=== PATIENT | male | born 1950 | race Hispanic/Latino ===

== ENCOUNTER 2019-07-26 11:10 | Emergency (ER) | payer OTHER ==
[2019-07-26] MEDS ORDERED: Ibuprofen 800 MG TAB ONE (11:56)
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
== END 2019-07-26 13:50 | disposition home or self-care (01) ==
LOC: ERS 11:10
DX: S70.02XA Contusion of left hip, initial encounter (principal); M54.5 Low back pain; M19.90 Unspecified osteoarthritis, unspecified site; V89.2XXA Person injured in unspecified motor-vehicle accident, traffic, initial encounter
CPT/HCPCS: 71046; 72100; 72170; 93005

== ENCOUNTER 2019-08-06 16:49 | Inpatient (IN) | payer MEDICARE, MEDICAID, OTHER ==
[2019-08-06 17:47] LABS: #Basophils 0.1 thou/uL (0.0-0.2); #Lymphocytes 1.3 thou/uL (1.20-3.40); #Monocytes 0.4 thou/uL (0.11-0.59); #Neutrophils 6.3 thou/uL (1.40-6.50); %Basophils 0.6 % (0.0-1.0); %Eosinophils 0.2 % (0.0-10.0); %Monocytes 4.9 % (0.0-10.0); %Neutrophils 78.3 % (42.0-75.0); Mean Corpuscular HGB CONC 33.3 g/dL (32.0-36.0); Mean Corpuscular Hemoglobin 31.8 pg (27.0-31.0); Mean Corpuscular Volume 95.7 fL (78.0-98.0); Platelet Count 251 thou/uL (130-400); RBC Distribution Width 11.1 % (11.5-14.5); Red Blood Cell (RBC) Count 4.41 mill/uL (4.70-6.10)
[2019-08-06 18:06] LABS: ALT (SGPT) 28 U/L (8-55); AST (SGOT) 54 U/L (5-34); Albumin 3.6 g/dL (3.4-4.8); Alkaline Phosphatase 65 U/L (40-110); Anion Gap 16 mmol/L (10-20); BUN (Urea Nitrogen) 49 mg/dL (8.4-25.7); Bilirubin, Total 0.5 mg/dL (0.2-1.2); CK (CPK) 37 U/L (30-200); Calc. Creatinine Clearance 0 mL/min (70-130); Calcium 8.8 mg/dL (7.8-10.44); Carbon Dioxide 20 mmol/L (23-31); Chloride 98 mmol/L (98-107); Estimated GFR-MDRD 37; Globulin 4.2 g/dL (2.4-3.5); Glucose 346 mg/dL (80-115); Lipase 99 U/L (8-78); Potassium 5.7 mmol/L (3.5-5.1); Protein, Total 7.8 g/dL (5.8-8.1); Sodium 128 mmol/L (136-145)
--- NOTE | 2019-08-06 19:07 | RAD ---
PORTABLE CHEST: 08/06/19 HISTORY: Cough. COMPARISON: A 07/26/19 exam. The heart size is within normal limits for portable technique. There are atherosclerotic changes of t he aorta with some chronic appearing change. No focal infiltrative process is present. IMPRESSION: No active intrathoracic disease. Pleural based densities along the right and left hemithorax are dionicio lar to the previous exam. POS: [facility]
[2019-08-06] MEDS ORDERED: Acetaminophen 325 MG TAB ONE (19:09)
[2019-08-06] MEDS ORDERED: cefTRIAXone\\ROCEPHIN 2 GM VIAL ONE (19:09)
[2019-08-06] MEDS ORDERED: methylPREDNISolone Sod Succ/PF 125 MG/2 ML VIAL ONE (19:09)
[2019-08-06] MEDS ORDERED: Azithromycin 500 MG VIAL ONE (20:11)
[2019-08-06 21:06] LABS: Troponin I Less than 0.010 ng/mL (< 0.028)
[2019-08-06] MEDS ORDERED: Ondansetron PF 4 MG/2 ML Vial IVP PRN (21:43)
[2019-08-06] MEDS ORDERED: Bisacodyl 10 MG SUPP PR PRN (21:43)
[2019-08-06] MEDS ORDERED: Senokot S 8.6-50 MG TAB PO PRN (21:43)
[2019-08-06] MEDS ORDERED: Dextrose 5% in Water 1,000 ML IV PRN (21:43)
[2019-08-06] MEDS ORDERED: Dextrose 50% Abboject 50 ML SYRINGE SLOW IVP PRN (21:43)
[2019-08-06] MEDS ORDERED: Insulin Glargine 20 UNITS in Pre-Filled Syringe 1 EACH SC SCH (22:45)
[2019-08-06] MEDS: Sodium Chloride 0.9% 1,000 ML IV SCH (22:45)
[2019-08-06] MEDS: HumaLOG 300 UNITS/3 ML VIAL SC PRN (22:55)
--- NOTE | 2019-08-06 23:59 | HP ---
REASON FOR ADMISSION: Possible COVID. HISTORY OF PRESENTING ILLNESS: The patient gives history of having generalized body aches, dry cough, and loss of appetite for the last 3 to 4 days now, not been eating or drinking well for the last 2 to 3 days now. No complaints of chest pain, palpitation, PND, or orthopnea. No complaints of expectoration, but has mostly dry cough. No exposure for COVID-19 as far as he knows. PAST MEDICAL AND SURGICAL HISTORY: Diabetes mellitus type 2, hypertension. No prior surgical history. CURRENT MEDICATIONS: The patient does not recall all his medications. We will try to obtain the same from his pharmacy tomorrow. ALLERGIES: NO KNOWN DRUG ALLERGIES. PERSONAL HISTORY: Does not abuse alcohol or drugs. No history of smoking. FAMILY HISTORY: Both parents are . The patient ambulates by himself. CODE STATUS: Full. REVIEW OF SYSTEMS: CONSTITUTIONAL: Negative for weight loss or gain, ability to conduct usual activities. SKIN: Negative for rash, itching. EYES: Negative for double vision, pain. ENT/MOUTH: Negative for nose bleeding, neck stiffness, pain, tenderness. CARDIOVASCULAR: Negative for palpitations, dyspnea on exertion, orthopnea. RESPIRATORY: Negative for shortness of breath, wheezing, cough, hemoptysis, fever or night sweats. GASTROINTESTINAL: Negative for poor appetite, abdominal pain, heartburn, nausea , vomiting, constipation, or diarrhea. GENITOURINARY: Negative for urgency, frequency, dysuria, nocturia. MUSCULOSKELETAL: Negative for pain, swelling. NEUROLOGIC/PSYCHIATRIC: Negative for anxiety, depression. ALLERGY/IMMUNOLOGIC: Negative for skin rash, bleeding tendency. PHYSICAL EXAMINATION: GENERAL: The patient is a 69-year-old male who is currently not in any acute distress. VITAL SIGNS: Blood pressure 118/74, pulse 94 per minute, respiratory rate 20 per minute, temperature 101.2 degrees Fahrenheit, saturating 94% on room air. NECK: Supple. No elevated JVD. HEENT: Eyes; extraocular muscles intact. Pupils are reacting to light. Oral cavity, mucous membranes are dry. No exudates or congestion. CARDIOVASCULAR: S1 and S2 heard. Regular rhythm. RESPIRATORY: Air entry, 1+ bilateral. No rales or rhonchi. ABDOMEN: Soft. Bowel sounds heard. No tenderness, rigidity, or guarding. EXTREMITIES: No peripheral edema or calf tenderness. VASCULAR SYSTEM: Peripheral pulses 2+, bilateral. No ischemic ulcerations or gangrene. CENTRAL NERVOUS SYSTEM: No gross focal motor deficits noted. The patient is alert, awake, and oriented well. PSYCHIATRIC: The patient's mood is euthymic. No hallucinations or delusions. DIAGNOSTIC STUDIES: Chest x-ray done shows no active intrathoracic disease. There are bilateral pleural-based densities seen, which are similar when compared to prior x-ray on 07/26/2019. LABORATORY DATA: Sodium 128, potassium 5.7, serum bicarb 20, BUN 49, creatinine 1.8, serum glucose 346. AST 54. Troponin x2 negative. Albumin is 3.6. Lipase is 99. White count of 8, H and H 14 and 42, platelet count is 251, MCV is 95 with 78% neutrophils, 16% lymphocytes. CLINICAL IMPRESSION AND PLAN: The patient will be admitted to medical floor for likely coronavirus pneumonia. Currently, his plain x-ray does not show any infiltrate. He has had a fever of 101.2 degrees. The patient's symptoms are consistent with likely coronavirus disease. The coronavirus disease-19 PCR has been obtained in the emergency room. We will also obtain blood and urine cultures. The patient does mention that he has had some increased urination with frequency as well from last 2 to 3 days now. We will empirically cover him with Levaquin. He will be on airborne and droplet precautions. He will be given a dose of Lantus 20 units subcu one dose now for serum sugars of more than 300. He will be on normal saline at 100 mL per hour for acute kidney injury with likely underlying chronic kidney disease, which we are not sure of at present. Job ID: [id number] [facility]
[2019-08-07 00:09] LABS: Troponin I 0.017 ng/mL (< 0.028)
[2019-08-07] MEDS: Ciprofloxacin Lactate/D5W 200 MG in Premix Bag 1 BAG IVPB SCH ×2 (00:38→12:05)
[2019-08-07] MEDS: HumaLOG 300 UNITS/3 ML VIAL SC PRN (06:38)
[2019-08-07 07:06] LABS: #Lymphocytes 0.8 thou/uL (1.20-3.40); #Monocytes 0.1 thou/uL (0.11-0.59); #Neutrophils 5.5 thou/uL (1.40-6.50); %Basophils 0.1 % (0.0-1.0); %Eosinophils 0.1 % (0.0-10.0); %Lymphocytes 13.1 % (21.0-51.0); %Monocytes 1.1 % (0.0-10.0); %Neutrophils 85.5 % (42.0-75.0); Mean Corpuscular HGB CONC 34.1 g/dL (32.0-36.0); Mean Corpuscular Volume 96.6 fL (78.0-98.0); Mean Platelet Volume 8.1 fL (7.4-10.4); Platelet Count 237 thou/uL (130-400); RBC Distribution Width 11.1 % (11.5-14.5); Red Blood Cell (RBC) Count 3.93 mill/uL (4.70-6.10); White Blood Cell (WBC) Count 6.4 thou/uL (4.8-10.8)
[2019-08-07 07:30] LABS: Anion Gap 12 mmol/L (10-20); BUN (Urea Nitrogen) 52 mg/dL (8.4-25.7); Calc. Creatinine Clearance 37 mL/min (70-130); Calcium 7.8 mg/dL (7.8-10.44); Carbon Dioxide 21 mmol/L (23-31); Chloride 105 mmol/L (98-107); Estimated GFR-MDRD 44; Glucose 340 mg/dL (80-115); Potassium 5.2 mmol/L (3.5-5.1); Sodium 133 mmol/L (136-145)
[2019-08-07] MEDS: Sodium Chloride 0.9% 1,000 ML IV SCH ×2 (08:43→18:28)
[2019-08-07] MEDS: Enoxaparin Sodium 30 MG/0.3 ML SYRINGE SC SCH (08:43)
[2019-08-07] MEDS ORDERED: Prevnar 13-Val Conj/PF 0.5 ML SYRINGE IM ONE (09:00)
[2019-08-07 14:17] LABS: SARS-CoV-2 MS2 Positive; SARS-CoV-2 N Gene Positive; SARS-CoV-2 S Gene Positive; SARS-CoV-2 orf1ab Positive
--- NOTE | 2019-08-07 17:57 | PDOC.HOSPP ---
- Subjective Encounter Date: 08/07/19 Encounter Time: 17:56 Subjective: Mr. Carlos was seen today in follow-up of COVID infection. He says today that he didn't have any symptoms, and doesn't now. He does not know why he is in the hospital. All he came here for was a refill on his prescriptions. - Objective Vital Signs & Weight: Vital Signs (12 hours) Temp Pulse Resp BP BP Pulse Ox 08/07/19 12:00 97.6 F 80 18 159/70 H 98 08/07/19 08:30 97.6 F 83 18 138/73 94 L 08/07/19 08:00 94 L Weight Admit Weight 128 lb 1.417 oz Weight 128 lb 1.417 oz I&O: 08/06/19 08/07/19 08/08/19 06:59 06:59 06:59 Intake Total 900 Output Total 0 Balance 900 Result Diagrams: 08/07/19 06:25 08/07/19 06:25 Additional Labs: Accuchecks 08/07/19 08/07/19 08/07/19 16:54 13:03 06:42 POC Glucose 386 H 320 H 314 H 08/06/19 22:57 POC Glucose 330 H Hospitalist ROS - Medication Medications: Active Medications Generic Name Dose Route Start Last Admin Trade Name Freq PRN Reason Stop Dose Admin Enoxaparin Sodium 30 mg 08/07/19 09:00 08/07/19 08:43 Lovenox SC 30 mg 0900 JALYN Administration Sodium Chloride 1,000 mls @ 100 mls/hr 08/06/19 22:45 08/07/19 08:43 Normal Saline 0.9% IV 1,000 mls .Q10H JALYN Administration Ciprofloxacin/Dextrose 200 mg/ 100 mls @ 100 mls/hr 08/06/19 23:59 08/07/19 12:05 Device IVPB 100 mls 1200,2359 JALYN Administration Insulin Human Lispro 0 units 08/06/19 21:43 08/07/19 06:38 Humalog SC 11 unit .AGGRESSIVE SLIDING PRN Administration Aggressive Correctional Scale Insulin Human Lispro 0 units 08/06/19 21:43 08/06/19 22:55 Humalog SC 4 unit .BEDTIME SLIDING SC PRN Administration Bedtime Correctional Scale - Exam Eye: PERRL Heart: RRR, no murmur, no gallops, no rubs, normal peripheral pulses Respiratory: rales (+ rales bilaterally, no rhonchi) Gastrointestinal: soft, non-tender, non-distended, normal bowel sounds, no palpable masses Extremities: no cyanosis, no edema Hosp A/P (1) COVID-19 virus infection Code(s): U07.1 - COVID-19 Status: Acute (2) Diabetes mellitus type 2 in nonobese Code(s): E11.9 - TYPE 2 DIABETES MELLITUS WITHOUT COMPLICATIONS Status: Acute (3) Hypertension Code(s): I10 - ESSENTIAL (PRIMARY) HYPERTENSION Status: Chronic - Plan * COVID infection- he now has mild symptoms- will monitor * Will check inflammatory markers * HTN- will re-start his cynthia medications * DM- re-start Metformin, and continue SSI * Mild hyperkalemia- will repeat in the AM after hydration * Continue DVT and GI Prophylaxis
[2019-08-07] MEDS ORDERED: metFORMIN 850 MG TAB PO SCH (18:45)
[2019-08-07] MEDS: Guaifenesin DM 100-10/5 ML UDCUP PO PRN (20:10)
[2019-08-07] MEDS: Calcium Carbonate 500 MG ChewTAB PO PRN (20:10)
[2019-08-08] MEDS: HumaLOG 300 UNITS/3 ML VIAL SC PRN ×3 (01:17→12:12)
[2019-08-08] MEDS: Sodium Chloride 0.9% 1,000 ML IV SCH ×3 (06:12→16:51)
[2019-08-08] MEDS: Guaifenesin DM 100-10/5 ML UDCUP PO PRN ×3 (06:29→19:54)
[2019-08-08 06:43] LABS: Band 34 % (5-11); Hemoglobin 14.1 g/dL (14.0-18.0); Lymphocytes 8 % (21-51); MDiff Complete? YES; Mean Corpuscular HGB CONC 34.1 g/dL (32.0-36.0); Mean Corpuscular Hemoglobin 32.8 pg (27.0-31.0); Mean Corpuscular Volume 96.1 fL (78.0-98.0); Mean Platelet Volume 8.1 fL (7.4-10.4); Monocytes 2 % (0-10); Neutrophil 56 % (42-75); Platelet Count 304 thou/uL (130-400); Platelet Morphology Comment Appears Adequate; RBC Distribution Width 11.1 % (11.5-14.5); Red Blood Cell (RBC) Count 4.29 mill/uL (4.70-6.10); White Blood Cell (WBC) Count 18.9 thou/uL (4.8-10.8)
[2019-08-08 06:58] LABS: Anion Gap 15 mmol/L (10-20); BUN (Urea Nitrogen) 42 mg/dL (8.4-25.7); CRP (Inflammatory) 7.21 mg/dL (= or < 0.5); Calc. Creatinine Clearance 43 mL/min (70-130); Calcium 8.1 mg/dL (7.8-10.44); Carbon Dioxide 17 mmol/L (23-31); Chloride 111 mmol/L (98-107); Estimated GFR-MDRD 53; Glucose 333 mg/dL (80-115); Potassium 4.6 mmol/L (3.5-5.1); Sodium 138 mmol/L (136-145)
[2019-08-08] MEDS ORDERED: Loperamide HCl 2 MG CAP PO PRN (08:04)
[2019-08-08] MEDS: Enoxaparin Sodium 30 MG/0.3 ML SYRINGE SC SCH (08:31)
[2019-08-08] MEDS: Lisinopril 10 MG TAB PO SCH (08:32)
[2019-08-08] MEDS: metFORMIN 850 MG TAB PO SCH ×2 (08:32→16:53)
[2019-08-08] MEDS: Thiamine 100 MG TAB PO SCH (08:32)
[2019-08-08] MEDS: Insulin Glargine 15 UNITS in Pre-Filled Syringe 1 EACH SC SCH (09:46)
[2019-08-08] MEDS: Calcium Carbonate 500 MG ChewTAB PO PRN (12:10)
--- NOTE | 2019-08-08 16:01 | PDOC.HOSPP ---
- Subjective Encounter Date: 08/08/19 Encounter Time: 15:59 Subjective: Mr. Mercado was seen today in follow-up. He appears a little worse today. He is a bit more diaphoretic, and is coughing more. - Objective Vital Signs & Weight: Vital Signs (12 hours) Temp Pulse Resp BP Pulse Ox 08/08/19 09:55 97.9 F 86 14 117/72 95 08/08/19 05:50 97.7 F 80 18 159/77 H 93 L Weight Admit Weight 128 lb 1.417 oz Weight 128 lb 1.417 oz I&O: 08/07/19 08/08/19 08/09/19 06:59 06:59 06:59 Intake Total 2500 Output Total 240 Balance 2260 Result Diagrams: 08/08/19 06:05 08/08/19 06:05 Additional Labs: Accuchecks 08/08/19 08/08/19 08/08/19 12:22 06:07 00:57 POC Glucose 206 H 321 H 480 H 08/07/19 08/07/19 20:28 16:54 POC Glucose 504 H 386 H Hospitalist ROS - Medication Medications: Active Medications Generic Name Dose Route Start Last Admin Trade Name Freq PRN Reason Stop Dose Admin Calcium Carbonate 1,000 mg 08/06/19 21:43 08/08/19 12:10 Tums PO 1,000 mg Q4H PRN Administration Heartburn or Indigestion Enoxaparin Sodium 30 mg 08/07/19 09:00 08/08/19 08:31 Lovenox SC 30 mg 0900 JALYN Administration Guaifenesin/Dextromethorphan 15 ml 08/06/19 21:43 08/08/19 12:11 Robitussin Dm PO 15 ml Q4H PRN Administration Cough Sodium Chloride 1,000 mls @ 100 mls/hr 08/06/19 22:45 08/08/19 14:20 Normal Saline 0.9% IV Not Given .Q10H JALYN Insulin Glargine 15 units/ 0.15 mls @ 0 mls/hr 08/08/19 09:00 08/08/19 09:46 Miscellaneous Medication SC 0.15 mls QAM JALYN Administration Insulin Human Lispro 0 units 08/06/19 21:43 08/08/19 12:12 Humalog SC 6 unit .AGGRESSIVE SLIDING PRN Administration Aggressive Correctional Scale Insulin Human Lispro 0 units 08/06/19 21:43 08/08/19 01:17 Humalog SC 5 unit .BEDTIME SLIDING SC PRN Administration Bedtime Correctional Scale Lisinopril 10 mg 08/08/19 09:00 08/08/19 08:32 Zestril PO 10 mg DAILY JALYN Administration Loperamide HCl 2 mg 08/08/19 08:04 08/08/19 12:10 Imodium PO 2 mg PRN PRN Administration Diarrhea/Loose Stools Metformin HCl 850 mg 08/08/19 08:00 08/08/19 08:32 Glucophage PO 850 mg BID-WM JALYN Administration Thiamine HCl 50 mg 08/08/19 09:00 08/08/19 08:32 Thiamine PO 50 mg DAILY JALYN Administration - Exam Eye: PERRL, anicteric sclera Heart: RRR, no murmur, no gallops, no rubs, normal peripheral pulses Respiratory: CTAB (with an occasional wheeze, no rhonchi) Gastrointestinal: soft, non-tender, non-distended, normal bowel sounds, no palpable masses Extremities: no cyanosis, no edema Hosp A/P (1) COVID-19 virus infection Code(s): U07.1 - COVID-19 Status: Acute (2) Diabetes mellitus type 2 in nonobese Code(s): E11.9 - TYPE 2 DIABETES MELLITUS WITHOUT COMPLICATIONS Status: Acute (3) Hypertension Code(s): I10 - ESSENTIAL (PRIMARY) HYPERTENSION Status: Chronic - Plan * COVID infection- continue to monitor in the hospital * continue to trend inflammatory markers * HTN- blood pressure is trending down * DM-will add a low dose Lantus * Hyperkalemia- improved * Continue DVT and GI Prophylaxis
[2019-08-08] MEDS: Acetaminophen 325 MG TAB PO PRN ×2 (16:58→22:20)
[2019-08-09] MEDS: Sodium Chloride 0.9% 1,000 ML IV SCH ×3 (00:08→21:12)
[2019-08-09] MEDS: Guaifenesin DM 100-10/5 ML UDCUP PO PRN ×2 (02:28→06:05)
[2019-08-09] MEDS: Acetaminophen 325 MG TAB PO PRN ×2 (02:28→06:06)
[2019-08-09 06:21] LABS: Hemoglobin 13.1 g/dL (14.0-18.0); Mean Corpuscular HGB CONC 32.4 g/dL (32.0-36.0); Mean Corpuscular Hemoglobin 31.2 pg (27.0-31.0); Mean Platelet Volume 7.9 fL (7.4-10.4); Platelet Count 294 thou/uL (130-400); RBC Distribution Width 11.3 % (11.5-14.5); White Blood Cell (WBC) Count 19.2 thou/uL (4.8-10.8)
[2019-08-09 06:31] LABS: Band 24 % (5-11); Lymphocytes 5 % (21-51); MDiff Complete? YES; Neutrophil 71 % (42-75); Platelet Morphology Comment Appears Adequate
[2019-08-09 06:40] LABS: Anion Gap 12 mmol/L (10-20); BUN (Urea Nitrogen) 20 mg/dL (8.4-25.7); CRP (Inflammatory) 16.46 mg/dL (= or < 0.5); Calc. Creatinine Clearance 60 mL/min (70-130); Calcium 7.9 mg/dL (7.8-10.44); Carbon Dioxide 18 mmol/L (23-31); Chloride 114 mmol/L (98-107); Estimated GFR-MDRD 78; Glucose 185 mg/dL (80-115); Potassium 4.6 mmol/L (3.5-5.1); Sodium 139 mmol/L (136-145)
[2019-08-09] MEDS: Thiamine 100 MG TAB PO SCH (07:46)
[2019-08-09] MEDS: metFORMIN 850 MG TAB PO SCH ×2 (07:46→17:56)
[2019-08-09] MEDS: Lisinopril 10 MG TAB PO SCH (07:46)
[2019-08-09] MEDS: Enoxaparin Sodium 30 MG/0.3 ML SYRINGE SC SCH ×2 (07:49→21:13)
[2019-08-09] MEDS: Insulin Glargine 15 UNITS in Pre-Filled Syringe 1 EACH SC SCH (07:50)
[2019-08-09 11:01] LABS: Base Excess (BEa) -8.4 mEq/L (-2.0 to +3.0); CO2 Tension 26.1 mmHg (35.0-45.0); Calcium, Ionized (arterial) 1.16 mmol/L (1.12-1.30); Carboxyhemoglobin (COHb) 0.2 gm% (0.0-3.0); Hemoglobin (Hb) 14.4 g/dL (14.0-18.0); O2 Tension (PaO2), arterial 76.6 mmHg (> 80.0); Potassium - ABG Lab 4.26 mmol/L (3.70-5.30); pH, Arterial 7.38 (7.35-7.45)
[2019-08-09 11:06] LABS: ALV-art Gradient 603.775 (0-20); Puncture Site L.R.
--- NOTE | 2019-08-09 11:56 | PDOC.HOSPP ---
- Subjective Encounter Date: 08/09/19 Encounter Time: 11:54 Subjective: Mr. Mercado was seen today in follow-up of COVID Pneumonia. He is beginning to become more short of breath. - Objective Vital Signs & Weight: Vital Signs (12 hours) Temp Pulse Resp BP Pulse Ox 08/09/19 04:42 98.4 F 105 H 18 149/81 H 96 08/09/19 00:25 98.6 F 100 18 138/79 96 Weight Admit Weight 128 lb 1.417 oz Weight 128 lb 1.417 oz I&O: 08/08/19 08/09/19 08/10/19 06:59 06:59 06:59 Intake Total 2500 2850 Output Total 240 1450 Balance 2260 1400 Result Diagrams: 08/09/19 05:55 08/09/19 05:55 Additional Labs: Accuchecks 08/09/19 08/08/19 08/08/19 04:52 20:12 17:05 POC Glucose 188 H 81 117 H 08/08/19 12:22 POC Glucose 206 H Hospitalist ROS - Medication Medications: Active Medications Generic Name Dose Route Start Last Admin Trade Name Freq PRN Reason Stop Dose Admin Acetaminophen 650 mg 08/06/19 21:43 08/09/19 06:06 Tylenol PO 650 mg Q4H PRN Administration Headache/Fever/Mild Pain (1-3) Calcium Carbonate 1,000 mg 08/06/19 21:43 08/08/19 12:10 Tums PO 1,000 mg Q4H PRN Administration Heartburn or Indigestion Enoxaparin Sodium 30 mg 08/07/19 09:00 08/09/19 07:49 Lovenox SC 30 mg 0900 JALYN Administration Guaifenesin/Dextromethorphan 15 ml 08/06/19 21:43 08/09/19 06:05 Robitussin Dm PO 15 ml Q4H PRN Administration Cough Sodium Chloride 1,000 mls @ 100 mls/hr 08/06/19 22:45 08/09/19 07:53 Normal Saline 0.9% IV 1,000 mls .Q10H JALYN Administration Insulin Glargine 15 units/ 0.15 mls @ 0 mls/hr 08/08/19 09:00 08/09/19 07:50 Miscellaneous Medication SC 0.15 mls QAM JALYN Administration Insulin Human Lispro 0 units 08/06/19 21:43 08/08/19 12:12 Humalog SC 6 unit .AGGRESSIVE SLIDING PRN Administration Aggressive Correctional Scale Insulin Human Lispro 0 units 08/06/19 21:43 08/08/19 01:17 Humalog SC 5 unit .BEDTIME SLIDING SC PRN Administration Bedtime Correctional Scale Lisinopril 10 mg 08/08/19 09:00 08/09/19 07:46 Zestril PO 10 mg DAILY JALYN Administration Loperamide HCl 2 mg 08/08/19 08:04 08/08/19 12:10 Imodium PO 2 mg PRN PRN Administration Diarrhea/Loose Stools Metformin HCl 850 mg 08/08/19 08:00 08/09/19 07:46 Glucophage PO 850 mg BID-WM JALYN Administration Thiamine HCl 50 mg 08/08/19 09:00 08/09/19 07:46 Thiamine PO 50 mg DAILY JALYN Administration - Exam Eye: PERRL, anicteric sclera Heart: RRR, no murmur, no gallops, no rubs, normal peripheral pulses Respiratory: rales Gastrointestinal: soft, non-tender, non-distended, normal bowel sounds, no palpable masses, no hepatomegaly Extremities: no cyanosis, no edema Hosp A/P (1) Acute respiratory failure with hypoxemia Code(s): J96.01 - ACUTE RESPIRATORY FAILURE WITH HYPOXIA Status: Acute (2) COVID-19 virus infection Code(s): U07.1 - COVID-19 Status: Acute (3) Diabetes mellitus type 2 in nonobese Code(s): E11.9 - TYPE 2 DIABETES MELLITUS WITHOUT COMPLICATIONS Status: Acute (4) Hypertension Code(s): I10 - ESSENTIAL (PRIMARY) HYPERTENSION Status: Chronic - Plan * COVID infection- He seems to be worsening. His oxygen requirements increased today * Due to concern, will move him to the ICU- He is on day 5-6 of symptoms, if we go by his initial presentation ( as he told me, even through the softball player that he ddid not have symptoms)I have discussed with him through the softball player the move to the ICU. I also informed him of the Compassionate use of the new medication Remdesivir. I explained the risks and benefits of the medication, including liver and kidney injury. I explained to him through the softball player that this is experimental. He says he would be willing to take this if he is a candidate. We also discussed code status again, and he would want to be placed on a ventilator. * I have spoken to Dr. Dunbar, the Manager Study paving contractor, and discussed with the case with him, and I have also told him, that the patient has been consented for Remdesivir. He will be assuming the care of this patient. * Will also consult ID for further recommendations. * HTN- blood pressure is trending down * Will check a stat portable CXR * DM-blood glucose is stable * Hyperkalemia- resolved * Continue DVT and GI Prophylaxis
--- NOTE | 2019-08-09 12:42 | RAD ---
EXAM: Single view of the chest HISTORY: Pneumonia COMPARISON: 08/06/2019 FINDINGS: Single view of the chest shows a normal sized cardiomediastinal silhouette. Developing infi ltrate in the right lung base. A stable calcified granuloma projects over the lateral aspect of the right thorax. The bones are unremarkable. IMPRESSION: Developing right lower lobe infiltrate
[2019-08-09] MEDS ORDERED: Azithromycin 500 MG in Sodium Chloride 0.9% 250 ML 250 ML IVPB SCH (13:00)
[2019-08-09] MEDS ORDERED: Cefepime 1 GM in Sodium Chloride 0.9% 100 ML IVPB SCH (14:00)
[2019-08-09] MEDS ORDERED: REMDESIVIR 200 MG in Sodium Chloride 0.9% 250 ML 210 ML IV SCH (16:45)
[2019-08-09] MEDS: methylPREDNISolone Sod Succ 40 MG VIAL IVP SCH ×2 (16:54→21:14)
[2019-08-09] MEDS: HumaLOG 300 UNITS/3 ML VIAL SC PRN (17:55)
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
--- NOTE | 2019-08-09 20:32 | CON ---
DATE OF CONSULTATION: HISTORY OF PRESENT ILLNESS: A 69-year-old gentleman, who speaks no Turkmen. He has been to the hospital for 3 days. He was transferred downstairs today with symptoms of progressive respiratory failure, confusion. He came to the hospital on the . His initial chest x-ray was normal. His test for coronavirus was positive. Though he presented to the ER with some chest pain, body aches, nonproductive cough, and headache. He is admitted because of persistent headache. With worsening x-ray finding, he was transferred to the ICU. He apparently in the ER received what appears to be 500 Zithromax, ceftriaxone, Solu-Medrol, Tylenol, but none was continued for the next several days. PAST MEDICAL HISTORY: Otherwise, pertinent for diabetes, chronic back pain, hypertension. PREVIOUS SURGERIES: None. MEDICATIONS: Apparently, unknown any medications from home. ALLERGIES: NONE. SOCIAL HISTORY: Alcohol, none. Tobacco, none. REVIEW OF SYSTEMS: Unremarkable. PHYSICAL EXAMINATION: VITAL SIGNS: In the ICU, on 4 L saturations are 95%, respiratory rate 30s, pulse 121, temperature 98. CHEST: No wheezing. No crackles. CARDIAC: Sinus tach. ABDOMEN: Soft. LABORATORY DATA: White count 19,000, H and H are 13 and 40, platelet count is 294. PO2 is 76, pCO2 of 26, pH 7.38 on a nonrebreather. Lytes are normal. C-reactive protein was 14. X-ray shows a new right-sided infiltrate. ASSESSMENT: Respiratory failure, right lung pneumonia, coronavirus positive pneumonia, diabetes, hypertension. He is started on steroids, neb treatments, Zithromax, and Maxipime.. If his x-ray gets worse, he may require Remdesivir. Also, we have initiated plasma therapy convalescent one pack. Continue supportive care. This is a consultation note, 70 minutes, 50% direct patient care. Job ID: [id number]
[2019-08-09] MEDS: Cefepime 1 GM in Sodium Chloride 0.9% 100 ML IVPB SCH (21:13)
[2019-08-09] MEDS: Famotidine/PF 20 mg/2ml Vial SLOW IVP SCH (21:13)
[2019-08-09] MEDS: Albuterol 200 PUFF (6.7GM INHALER) INH SCH ×2 (21:48)
[2019-08-10] MEDS: Albuterol 200 PUFF (6.7GM INHALER) INH SCH ×5 (00:39→22:59)
[2019-08-10] MEDS: Acetaminophen 325 MG TAB PO PRN (01:43)
[2019-08-10] MEDS: Sodium Chloride 0.9% 1,000 ML IV SCH ×2 (06:04→08:33)
[2019-08-10] MEDS: HumaLOG 300 UNITS/3 ML VIAL SC PRN ×3 (06:08→18:30)
--- NOTE | 2019-08-10 08:15 | PRG ---
DATE OF SERVICE: SUBJECTIVE: Mr. Mercado received infusion of convalescent plasma last evening. It is reported that he is less dyspneic and anxious since it was completed. Otherwise, no complaints are noted. The patient is awake and follows commands. PHYSICAL EXAMINATION: VITAL SIGNS: Blood pressure 148/87, heart rate 88. He had been quite tachycardic last evening. Saturations 98%. GENERAL: He is awake, alert, follows commands. NECK: He has no adenopathy or JVD. LUNGS: Show rhonchi, but no wheezing or rales. HEART: Regular rate and rhythm. ABDOMEN: Soft. There is no organomegaly. EXTREMITIES: He has no edema. LABORATORY DATA: White count this morning 19,200, hemoglobin 13.1 with hematocrit of 40.3, platelet count 294,000. He does have 24 bands. IMPRESSION: Coronavirus positive with underlying pneumonia and respiratory distress. He is on empiric antibiotic therapy as well as steroids and has received convalescent plasma and remdesivir. PLAN: We will continue with current therapies. Subjectively, the patient is better today and whether this can be attributed to the natural course of his disease or to treatment initiated thus far, it is difficult to determine. He is much less anxious and tachycardic than when I had briefly seen him last evening and does not appear to be in imminent need of ventilatory support. Other interventions will continue. He may be appropriate for transfer to the floor later today. Job ID: [id number]
[2019-08-10] MEDS: Cefepime 1 GM in Sodium Chloride 0.9% 100 ML IVPB SCH ×2 (08:27→19:37)
[2019-08-10] MEDS: Azithromycin 500 MG in Sodium Chloride 0.9% 250 ML 250 ML IVPB SCH (08:29)
[2019-08-10] MEDS: methylPREDNISolone Sod Succ 40 MG VIAL IVP SCH (08:29)
[2019-08-10] MEDS: Famotidine/PF 20 mg/2ml Vial SLOW IVP SCH ×2 (08:30→19:37)
[2019-08-10] MEDS: Enoxaparin Sodium 30 MG/0.3 ML SYRINGE SC SCH ×2 (08:30→19:37)
[2019-08-10] MEDS: Thiamine 100 MG TAB PO SCH (08:31)
[2019-08-10] MEDS: Insulin Glargine 15 UNITS in Pre-Filled Syringe 1 EACH SC SCH (08:31)
[2019-08-10] MEDS: Lisinopril 10 MG TAB PO SCH (08:31)
[2019-08-10] MEDS: metFORMIN 850 MG TAB PO SCH ×2 (08:40→18:12)
--- NOTE | 2019-08-10 09:06 | PDOC.HOSPP ---
- Subjective Encounter Date: 08/10/19 Encounter Time: 09:04 Subjective: Mr. Mercado was seen today in follow-up of COVID pneumonia, and respiratory failure. He says he feels much better today. He denies dyspnea, no chest pain, no nausea or vomiting. No leg pain or swelling. - Objective Vital Signs & Weight: Vital Signs (12 hours) Temp Pulse Resp BP BP Pulse Ox 08/10/19 08:31 151/79 H 08/10/19 04:00 98.8 F 08/10/19 01:50 98.8 F 104 H 24 H 110/87 96 08/10/19 01:35 98.3 F 103 H 20 144/88 H 98 08/10/19 00:00 98.2 F Weight Admit Weight 128 lb 1.417 oz Weight 128 lb 1.417 oz Most Recent Monitor Data Heart Rate from ECG 94 NIBP 148/87 NIBP BP-Mean 107 Respiration from ECG 26 SpO2 98 I&O: 08/09/19 08/10/19 08/11/19 06:59 06:59 06:59 Intake Total 2850 3329 Output Total 1450 1160 Balance 1400 2169 Result Diagrams: 08/09/19 05:55 08/09/19 05:55 Additional Labs: Accuchecks 08/10/19 08/09/19 08/09/19 03:43 20:03 17:12 POC Glucose 171 H 156 H 170 H Hospitalist ROS - Medication Medications: Active Medications Generic Name Dose Route Start Last Admin Trade Name Freq PRN Reason Stop Dose Admin Acetaminophen 650 mg 08/06/19 21:43 08/10/19 01:43 Tylenol PO 650 mg Q4H PRN Administration Headache/Fever/Mild Pain (1-3) Albuterol Sulfate 2 puff 08/09/19 13:00 08/10/19 00:39 Proventil Hfa INH 2 puff [id number] JALYN Administration Calcium Carbonate 1,000 mg 08/06/19 21:43 08/08/19 12:10 Tums PO 1,000 mg Q4H PRN Administration Heartburn or Indigestion Enoxaparin Sodium 30 mg 08/09/19 21:00 08/10/19 08:30 Lovenox SC 30 mg 0900,2100 JALYN Administration Famotidine 20 mg 08/09/19 21:00 08/10/19 08:30 Pepcid SLOW IVP 20 mg BID JALYN Administration Guaifenesin/Dextromethorphan 15 ml 08/06/19 21:43 08/09/19 06:05 Robitussin Dm PO 15 ml Q4H PRN Administration Cough Sodium Chloride 1,000 mls @ 100 mls/hr 08/06/19 22:45 08/10/19 08:33 Normal Saline 0.9% IV 1,000 mls .Q10H JALYN Administration Insulin Glargine 15 units/ 0.15 mls @ 0 mls/hr 08/08/19 09:00 08/10/19 08:31 Miscellaneous Medication SC 0.15 mls QAM JALYN Administration Azithromycin 500 mg/ Sodium 250 mls @ 250 mls/hr 08/10/19 09:00 08/10/19 08: 29 Chloride IVPB 250 mls 0900 JALYN Administration Cefepime HCl 1 gm/ Sodium 100 mls @ 200 mls/hr 08/09/19 21:00 08/10/19 08:27 Chloride IVPB 100 mls 0900,2100 JALYN Administration Insulin Human Lispro 0 units 08/06/19 21:43 08/10/19 06:08 Humalog SC 3 unit .AGGRESSIVE SLIDING PRN Administration Aggressive Correctional Scale Insulin Human Lispro 0 units 08/06/19 21:43 08/08/19 01:17 Humalog SC 5 unit .BEDTIME SLIDING SC PRN Administration Bedtime Correctional Scale Lisinopril 10 mg 08/08/19 09:00 08/10/19 08:31 Zestril PO 10 mg DAILY JALYN Administration Loperamide HCl 2 mg 08/08/19 08:04 08/08/19 12:10 Imodium PO 2 mg PRN PRN Administration Diarrhea/Loose Stools Metformin HCl 850 mg 08/08/19 08:00 08/10/19 08:40 Glucophage PO 850 mg BID-WM JALYN Administration Methylprednisolone Sodium Succinate 40 mg 08/09/19 21:00 08/10/19 08:29 Solu-Medrol IVP 40 mg BID JALYN Administration Ondansetron HCl 4 mg 08/06/19 21:43 08/09/19 12:45 Zofran IVP 4 mg Q6H PRN Administration Nausea/Vomiting Thiamine HCl 50 mg 08/08/19 09:00 08/10/19 08:31 Thiamine PO 50 mg DAILY JALYN Administration - Exam Eye: PERRL, anicteric sclera Heart: RRR, no murmur, no gallops, no rubs, normal peripheral pulses Respiratory: no rales (bilaterally, no wheezing) Gastrointestinal: soft, non-tender, non-distended, normal bowel sounds, no palpable masses Extremities: no cyanosis, no edema Hosp A/P (1) Acute respiratory failure with hypoxemia Code(s): J96.01 - ACUTE RESPIRATORY FAILURE WITH HYPOXIA Status: Acute (2) COVID-19 virus infection Code(s): U07.1 - COVID-19 Status: Acute (3) Diabetes mellitus type 2 in nonobese Code(s): E11.9 - TYPE 2 DIABETES MELLITUS WITHOUT COMPLICATIONS Status: Acute (4) Hypertension Code(s): I10 - ESSENTIAL (PRIMARY) HYPERTENSION Status: Chronic - Plan * COVID infection- He has stabilized overnight. He is breathing comfortably on 5L NC. He has received convalescent plasma, and scheduled to receive Remdesivir today. He does not require ICU level care at this time. He can be moved to the Observation unit.. He may require high flow oxygen, bit this can be done on that unit. If he decompensates, he can be transitioned back to the ICU * He has been placed on IV antibiotics, for possible bacterial infection on top of the viral infection * HTN- blood pressure is now elevated- will re-start his medication * Will check a stat portable CXR * DM-blood glucose is stable * Will check lab work for today, including liver function tests * Continue DVT and GI Prophylaxis
[2019-08-10 09:53] LABS: Hemoglobin 13.5 g/dL (14.0-18.0); Mean Corpuscular HGB CONC 34.3 g/dL (32.0-36.0); Mean Corpuscular Hemoglobin 33.3 pg (27.0-31.0); Mean Corpuscular Volume 97.1 fL (78.0-98.0); Platelet Count 323 thou/uL (130-400); RBC Distribution Width 11.5 % (11.5-14.5); Red Blood Cell (RBC) Count 4.07 mill/uL (4.70-6.10); White Blood Cell (WBC) Count 18.2 thou/uL (4.8-10.8)
[2019-08-10 10:00] LABS: Anion Gap 16 mmol/L (10-20); BUN (Urea Nitrogen) 20 mg/dL (8.4-25.7); Calc. Creatinine Clearance 62 mL/min (70-130); Calcium 7.9 mg/dL (7.8-10.44); Carbon Dioxide 16 mmol/L (23-31); Chloride 113 mmol/L (98-107); Estimated GFR-MDRD 82; Glucose 147 mg/dL (80-115); Sodium 141 mmol/L (136-145)
[2019-08-10 10:03] LABS: ALT (SGPT) 18 U/L (8-55); AST (SGOT) 32 U/L (5-34); Alkaline Phosphatase 66 U/L (40-110); Bilirubin, Direct 0.4 mg/dL (0.1-0.3); Bilirubin, Total 0.4 mg/dL (0.2-1.2); Protein, Total 6.3 g/dL (5.8-8.1)
[2019-08-10 10:21] LABS: Lymphocytes 8 % (21-51); MDiff Complete? YES; Monocytes 6 % (0-10); Neutrophil 86 % (42-75); Nucleated RBC 1 % (0); Platelet Morphology Comment Appears Adequate
--- NOTE | 2019-08-10 16:56 | EKG ---
Test Reason : CP, WEAKNESS Blood Pressure : / mmHG Vent. Rate : 094 BPM Atrial Rate : 094 BPM P-R Int : 146 ms QRS Dur : 080 ms QT Int : 342 ms P-R-T Axes : 032 -06 047 degrees QTc Int : 427 ms Normal sinus rhythm Normal ECG Confirmed by BHASKAR DAMON M.D. ([id number]), metropolitan editor MAJO ROOT ([id number] on 08/10/2019 4:56:30 PM Referred By: Confirmed By:BHASKAR DAMON M.D.
[2019-08-10] MEDS: REMDESIVIR 100 MG in Sodium Chloride 0.9% 250 ML 230 ML IV SCH (18:12)
[2019-08-11] MEDS: Sodium Chloride 0.9% 1,000 ML IV SCH ×2 (05:28→12:30)
[2019-08-11] MEDS: Albuterol 200 PUFF (6.7GM INHALER) INH SCH ×3 (05:49→20:36)
[2019-08-11] MEDS: HumaLOG 300 UNITS/3 ML VIAL SC PRN (06:23)
[2019-08-11] MEDS: Insulin Glargine 15 UNITS in Pre-Filled Syringe 1 EACH SC SCH (08:33)
[2019-08-11] MEDS: Dexamethasone 6 MG in Sodium Chloride 0.9% 50 ML IVPB SCH (08:33)
[2019-08-11] MEDS: Cefepime 1 GM in Sodium Chloride 0.9% 100 ML IVPB SCH ×2 (08:34→19:25)
[2019-08-11] MEDS: Guaifenesin DM 100-10/5 ML UDCUP PO PRN (08:34)
[2019-08-11] MEDS: Lisinopril 10 MG TAB PO SCH (08:34)
[2019-08-11] MEDS: Azithromycin 500 MG in Sodium Chloride 0.9% 250 ML 250 ML IVPB SCH (08:34)
[2019-08-11] MEDS: Enoxaparin Sodium 30 MG/0.3 ML SYRINGE SC SCH ×2 (08:34→19:26)
[2019-08-11] MEDS: Famotidine/PF 20 mg/2ml Vial SLOW IVP SCH ×2 (08:35→19:25)
[2019-08-11] MEDS: metFORMIN 850 MG TAB PO SCH ×2 (08:35→15:55)
[2019-08-11] MEDS: Thiamine 100 MG TAB PO SCH (08:35)
[2019-08-11] MEDS ORDERED: Lorazepam 0.5 MG TAB PO PRN (15:28)
--- NOTE | 2019-08-11 15:31 | PDOC.HOSPP ---
- Subjective Encounter Date: 08/11/19 Encounter Time: 15:29 Subjective: Mr. Mercado was seen today in follow-up of respiratory failure due to COVID pneumonia. He has been very anxious. He notes increased dyspnea, and continues to have a cough. - Objective Vital Signs & Weight: Vital Signs (12 hours) Temp Pulse Resp BP BP Pulse Ox 08/11/19 15:08 97.7 F 110 H 32 H 190/117 H 97 08/11/19 10:59 85 32 H 96 08/11/19 10:40 111 H 38 H 174/91 H 92 L 08/11/19 10:30 40 H 184/98 H 88 L 08/11/19 10:20 97.8 F 124 H 42 H 178/92 H 83 L 08/11/19 08:05 95 08/11/19 08:00 136/78 92 L 08/11/19 07:50 86 L 08/11/19 07:45 97.8 F 122 H 36 H 198/84 H 76 L Weight Admit Weight 128 lb 1.417 oz Weight 137 lb 3.2 oz Most Recent Monitor Data Heart Rate from ECG 121 NIBP 170/97 NIBP BP-Mean 121 Respiration from ECG 41 SpO2 87 I&O: 08/10/19 08/11/19 08/12/19 06:59 06:59 06:59 Intake Total 3329 1884 Output Total 1160 251 Balance 2169 1633 Result Diagrams: 08/10/19 09:30 08/10/19 09:30 Additional Labs: Accuchecks 08/11/19 08/11/19 08/10/19 10:58 05:56 23:10 POC Glucose 164 H 206 H 172 H 08/10/19 08/10/19 18:24 06:16 POC Glucose 172 H 175 H Hospitalist ROS - Medication Medications: Active Medications Generic Name Dose Route Start Last Admin Trade Name Freq PRN Reason Stop Dose Admin Acetaminophen 650 mg 08/06/19 21:43 08/10/19 01:43 Tylenol PO 650 mg Q4H PRN Administration Headache/Fever/Mild Pain (1-3) Albuterol Sulfate 2 puff 08/09/19 13:00 08/11/19 12:15 Proventil Hfa INH 2 puff [id number] JALYN Administration Calcium Carbonate 1,000 mg 08/06/19 21:43 08/08/19 12:10 Tums PO 1,000 mg Q4H PRN Administration Heartburn or Indigestion Enoxaparin Sodium 30 mg 08/09/19 21:00 08/11/19 08:34 Lovenox SC 30 mg 0900,2100 JALYN Administration Famotidine 20 mg 08/09/19 21:00 08/11/19 08:35 Pepcid SLOW IVP 20 mg BID JALYN Administration Guaifenesin/Dextromethorphan 15 ml 08/06/19 21:43 08/11/19 08:34 Robitussin Dm PO 15 ml Q4H PRN Administration Cough Sodium Chloride 1,000 mls @ 100 mls/hr 08/06/19 22:45 08/11/19 12:30 Normal Saline 0.9% IV 1,000 mls .Q10H JALYN Administration Insulin Glargine 15 units/ 0.15 mls @ 0 mls/hr 08/08/19 09:00 08/11/19 08:33 Miscellaneous Medication SC 0.15 mls QAM JALYN Administration Azithromycin 500 mg/ Sodium 250 mls @ 250 mls/hr 08/10/19 09:00 08/11/19 08: 34 Chloride IVPB 250 mls 0900 JALYN Administration Cefepime HCl 1 gm/ Sodium 100 mls @ 200 mls/hr 08/09/19 21:00 08/11/19 08:34 Chloride IVPB 100 mls 0900,2100 JALYN Administration Remdesivir 100 Mg In 250 mls @ 250 mls/hr 08/10/19 17:00 08/10/19 18:12 Sodium Chloride 0.9 IV 08/13/19 17:59 250 mls % 250 Ml 230 Ml Q24H JALYN Administration Dexamethasone 6 mg/ Sodium 50.6 mls @ 98.252 mls/hr 08/11/19 09:00 08/11/19 08:33 Chloride IVPB 50.6 mls DAILY JALYN Administration Insulin Human Lispro 0 units 08/06/19 21:43 08/11/19 06:23 Humalog SC 6 unit .AGGRESSIVE SLIDING PRN Administration Aggressive Correctional Scale Insulin Human Lispro 0 units 08/06/19 21:43 08/08/19 01:17 Humalog SC 5 unit .BEDTIME SLIDING SC PRN Administration Bedtime Correctional Scale Lisinopril 10 mg 08/08/19 09:00 08/11/19 08:34 Zestril PO 10 mg DAILY JALYN Administration Loperamide HCl 2 mg 08/08/19 08:04 08/08/19 12:10 Imodium PO 2 mg PRN PRN Administration Diarrhea/Loose Stools Metformin HCl 850 mg 08/08/19 08:00 08/11/19 08:35 Glucophage PO 850 mg BID-WM JALYN Administration Ondansetron HCl 4 mg 08/06/19 21:43 08/09/19 12:45 Zofran IVP 4 mg Q6H PRN Administration Nausea/Vomiting Sodium Chloride 10 ml 08/10/19 21:00 08/11/19 08:34 Flush - Normal Saline IVF 10 ml Q12HR JALYN Administration Thiamine HCl 50 mg 08/08/19 09:00 08/11/19 08:35 Thiamine PO 50 mg DAILY JALYN Administration - Exam Eye: PERRL, anicteric sclera Heart: RRR, no murmur, no gallops, no rubs, normal peripheral pulses Respiratory: rales (Bilaterally, no wheezing or rhonchi) Gastrointestinal: soft, non-tender, non-distended, normal bowel sounds, no palpable masses Extremities: no cyanosis, no edema Hosp A/P (1) Acute respiratory failure with hypoxemia Code(s): J96.01 - ACUTE RESPIRATORY FAILURE WITH HYPOXIA Status: Acute (2) COVID-19 virus infection Code(s): U07.1 - COVID-19 Status: Acute (3) Diabetes mellitus type 2 in nonobese Code(s): E11.9 - TYPE 2 DIABETES MELLITUS WITHOUT COMPLICATIONS Status: Acute (4) Hypertension Code(s): I10 - ESSENTIAL (PRIMARY) HYPERTENSION Status: Chronic - Plan * COVID infection- with respiratory failure- He had an increase in his oxygen requirements. He has been placed on high flow. * Continue Remdesivir and Decadron * Continue empiric antibiotics * HTN- blood pressure is elevated- will add Norvasc- and PRN medication for blood pressure * DM-blood glucose is stable * Mr Mercado has refused lab work- for renal function and liver function tests which were ordered. The importance of these medications were explained to him via the preform plate maker. He has also threatened to leave A on multiple occasions. We have talked with him and also notified his family of the situation. They want him to stay. Will add Ativan to his regimen to help * Continue DVT and GI Prophylaxis
[2019-08-11] MEDS ORDERED: cloNIDine 0.1 MG TAB PO PRN (15:35)
[2019-08-11] MEDS ORDERED: hydrALAZINE 20 MG/ML VIAL SLOW IVP PRN (15:35)
[2019-08-11] MEDS: Lorazepam 2 MG/ML VIAL SLOW IVP PRN (15:54)
[2019-08-11] MEDS: REMDESIVIR 100 MG in Sodium Chloride 0.9% 250 ML 230 ML IV SCH (15:55)
[2019-08-11] MEDS ORDERED: Amlodipine 5 MG TAB PO SCH (16:00)
--- NOTE | 2019-08-11 16:27 | PRG ---
DATE OF SERVICE: 08/11/2019 SUBJECTIVE: He continues on supplemental oxygen with increasing anxiety. His saturations have deteriorated and he is now on high-flow cannula at 60%. Just over the course of today, he has gone from 5 L cannula to non-rebreather to high-flow nasal cannula. OBJECTIVE: VITAL SIGNS: Blood pressure is 190/117, in part related to his anxiety and his heart rate is 110. LUNGS: He has bilateral coarse rales. HEART: Regular rate and rhythm with tachycardia. ABDOMEN: Soft. There is no organomegaly. LABORATORY DATA: White count today has not been obtained. IMPRESSION: COVID pneumonia, not yet beginning to improve despite aggressive therapies offered to date. PLAN: We will continue with high-flow nasal cannula. Hopefully, the patient will begin to recover soon. At this point, we would have nothing to offer except ventilatory support. Job ID: [id number]
[2019-08-11 16:35] LABS: Actual Bicarbonate (HCO3a) 16.6 mEq/L (22-28); Base Excess (BEa) -6.6 mEq/L (-2.0 to +3.0); CO2 Tension 27.4 mmHg (35.0-45.0); Calcium, Ionized (arterial) 1.13 mmol/L (1.12-1.30); Carboxyhemoglobin (COHb) 0.5 gm% (0.0-3.0); Hemoglobin (Hb) 13.8 g/dL (14.0-18.0); Potassium - ABG Lab 4.11 mmol/L (3.70-5.30)
[2019-08-11 16:37] LABS: O2 Tension (PaO2), arterial 44.6 mmHg (> 80.0)
[2019-08-11 16:38] LABS: Puncture Site RRA
[2019-08-11] MEDS ORDERED: Propofol 1,000 MG/100 ML VIAL IV ONE (18:10)
--- NOTE | 2019-08-11 18:47 | RAD ---
Chest AP view INDICATION: Intubation COMPARISON: Prior exam dated August 09, 2019 FINDINGS: Lungs: There are worsening airspace opacities within both lungs Cardiac silhouette: Moderate cardiomegaly persists Pulmonary vasculature: There is worsening pulmonary vascular congestion Pleural spaces: There are new small bilateral pleural effusion Upper abdomen: No abnormality seen. Osseous structures: No acute osseous abnormality. Additional findings: Patient is intubated with the ET tube tip seen 4.6 cm from the level of pee. IMPRESSION: Interval intubation. Worsening findings of volume overload or CHF. Worsening bilateral airspace opacities likely reflecting a combination of pneumonia and airspace otoniel a.
--- NOTE | 2019-08-11 18:55 | PRG ---
DATE OF SERVICE: The patient was transferred to the ICU earlier this evening for worsening saturation, tachycardia, and fatigue with impending respiratory failure. I observed him and deemed it appropriate that we proceed with intubation. We are already providing maximal COVID therapy, and these will be continued. Please see operative note. Job ID: [id number]
--- NOTE | 2019-08-11 18:59 | OP ---
DATE OF PROCEDURE: 08/11/2019 PREOPERATIVE DIAGNOSIS: Respiratory failure in COVID positive patient. POSTOPERATIVE DIAGNOSIS: Respiratory failure in COVID positive patient. DESCRIPTION OF OPERATION: Following informed consent, the patient was prepped in the usual fashion. Propofol 50 mg IV was given for conscious sedation and the patient then orally intubated with #8 endotracheal tube under direct visualization with #3 MAC laryngoscope. Good breath sounds and CO2 meter color change was identified. The patient was placed on the ventilator and postprocedure x-ray demonstrated tube to be somewhat distal and will be retracted approximately 1 cm. No other complication was noted. Post intubation blood gas will also be obtained and ventilator settings discussed with Respiratory therapy. Job ID: [id number] MTDD
[2019-08-11 20:29] LABS: Actual Bicarbonate (HCO3a) 15.9 mEq/L (22-28); Base Excess (BEa) -7.5 mEq/L (-2.0 to +3.0); CO2 Tension 26.6 mmHg (35.0-45.0); Calcium, Ionized (arterial) 1.14 mmol/L (1.12-1.30); Carboxyhemoglobin (COHb) 0.3 gm% (0.0-3.0); Hemoglobin (Hb) 11.8 g/dL (14.0-18.0); O2 Tension (PaO2), arterial 76.8 mmHg (> 80.0)
[2019-08-11 20:42] LABS: Puncture Site RRA
[2019-08-11] MEDS: Propofol 1,000 MG/100 ML VIAL IV PRN (20:54)
[2019-08-12] MEDS: Sodium Chloride 0.9% 1,000 ML IV SCH ×2 (02:01→08:50)
[2019-08-12] MEDS: Albuterol 200 PUFF (6.7GM INHALER) INH SCH (02:24)
[2019-08-12 04:03] LABS: Anion Gap 11 mmol/L (10-20); BUN (Urea Nitrogen) 29 mg/dL (8.4-25.7); CRP (Inflammatory) 7.07 mg/dL (= or < 0.5); Calc. Creatinine Clearance 67 mL/min (70-130); Calcium 7.1 mg/dL (7.8-10.44); Carbon Dioxide 18 mmol/L (23-31); Chloride 121 mmol/L (98-107); Estimated GFR-MDRD 83; Glucose 221 mg/dL (80-115); Potassium 4.6 mmol/L (3.5-5.1); Sodium 145 mmol/L (136-145)
[2019-08-12 04:05] LABS: ALT (SGPT) 17 U/L (8-55); AST (SGOT) 27 U/L (5-34); Albumin 2.2 g/dL (3.4-4.8); Alkaline Phosphatase 73 U/L (40-110); Bilirubin, Direct 0.1 mg/dL (0.1-0.3); Bilirubin, Total 0.3 mg/dL (0.2-1.2); Protein, Total 5.2 g/dL (5.8-8.1)
[2019-08-12 04:27] LABS: Band 7 % (5-11); Hemoglobin 11.1 g/dL (14.0-18.0); Hypochromia SLIGHT = 6-15 cells (100X) (0-5/hpf); Lymphocytes 6 % (21-51); MDiff Complete? YES; Mean Corpuscular HGB CONC 34.3 g/dL (32.0-36.0); Mean Corpuscular Hemoglobin 33.2 pg (27.0-31.0); Mean Corpuscular Volume 96.9 fL (78.0-98.0); Mean Platelet Volume 8.2 fL (7.4-10.4); Monocytes 6 % (0-10); Neutrophil 81 % (42-75); Platelet Count 327 thou/uL (130-400); Platelet Morphology Comment Appears Adequate; RBC Distribution Width 11.9 % (11.5-14.5); Red Blood Cell (RBC) Count 3.33 mill/uL (4.70-6.10); White Blood Cell (WBC) Count 12.3 thou/uL (4.8-10.8)
[2019-08-12] MEDS: Propofol 1,000 MG/100 ML VIAL IV PRN ×3 (06:13→22:00)
[2019-08-12 06:58] LABS: Base Excess (BEa) -4.1 mEq/L (-2.0 to +3.0); CO2 Tension 28.5 mmHg (35.0-45.0); Calcium, Ionized (arterial) 1.12 mmol/L (1.12-1.30); Carboxyhemoglobin (COHb) 0.2 gm% (0.0-3.0); Hemoglobin (Hb) 10.6 g/dL (14.0-18.0); O2 Tension (PaO2), arterial 68.7 mmHg (> 80.0); Potassium - ABG Lab 4.03 mmol/L (3.70-5.30); pH, Arterial 7.44 (7.35-7.45)
[2019-08-12 07:34] LABS: ALV-art Gradient 323.475 (0-20); Puncture Site RRA
[2019-08-12] MEDS: Lisinopril 10 MG TAB PO SCH (08:02)
[2019-08-12] MEDS: Thiamine 100 MG TAB PO SCH (08:39)
[2019-08-12] MEDS: metFORMIN 850 MG TAB PO SCH ×2 (08:39→16:29)
[2019-08-12] MEDS: Amlodipine 5 MG TAB PO SCH (08:40)
[2019-08-12] MEDS: Azithromycin 500 MG in Sodium Chloride 0.9% 250 ML 250 ML IVPB SCH (08:40)
[2019-08-12] MEDS: Cefepime 1 GM in Sodium Chloride 0.9% 100 ML IVPB SCH ×2 (08:40→20:03)
[2019-08-12] MEDS: Dexamethasone 6 MG in Sodium Chloride 0.9% 50 ML IVPB SCH ×2 (08:41→09:58)
[2019-08-12] MEDS: Famotidine/PF 20 mg/2ml Vial SLOW IVP SCH ×2 (08:41→20:03)
[2019-08-12] MEDS: Enoxaparin Sodium 30 MG/0.3 ML SYRINGE SC SCH ×2 (08:41→20:03)
[2019-08-12] MEDS: Insulin Glargine 15 UNITS in Pre-Filled Syringe 1 EACH SC SCH (08:42)
[2019-08-12] MEDS ORDERED: Tocilizumab 400 MG in Sodium Chloride 0.9% 80 ML IV ONE (10:00)
[2019-08-12] MEDS: methylPREDNISolone Sod Succ 40 MG VIAL IVP SCH ×3 (11:17→23:58)
--- NOTE | 2019-08-12 15:40 | PDOC.HOSPP ---
- Subjective Encounter Date: 08/12/19 Subjective: talk to the nurse, got update and reviewed the cahrt, labs and meds. pt is intubated around 7pm last evening for worsening resp failure. - Objective Vital Signs & Weight: Vital Signs (12 hours) Temp Pulse Resp BP Pulse Ox 08/12/19 14:00 36 H 08/12/19 12:00 98.5 F 33 H 08/12/19 10:18 77 81/54 L 08/12/19 10:00 34 H 08/12/19 08:40 89/53 L 08/12/19 08:02 89/53 L 08/12/19 08:00 97.4 F L 30 H 99 08/12/19 07:37 70 08/12/19 06:00 28 H 08/12/19 04:00 98.7 F 30 H Weight Admit Weight 128 lb 1.417 oz Weight 137 lb 12.8 oz Most Recent Monitor Data Heart Rate from ECG 78 NIBP 114/64 NIBP BP-Mean 80 Respiration from ECG 32 SpO2 93 I&O: 08/11/19 08/12/19 08/13/19 06:59 06:59 06:59 Intake Total 1884 1422 100 Output Total 251 705 345 Balance 1633 717 -245 Result Diagrams: 08/12/19 03:24 08/12/19 03:25 Additional Labs: Accuchecks 08/11/19 08/11/19 22:11 16:03 POC Glucose 224 H 219 H Hospitalist ROS - Medication Medications: Active Medications Generic Name Dose Route Start Last Admin Trade Name Freq PRN Reason Stop Dose Admin Acetaminophen 650 mg 08/06/19 21:43 08/10/19 01:43 Tylenol PO 650 mg Q4H PRN Administration Headache/Fever/Mild Pain (1-3) Albuterol Sulfate 2 puff 08/09/19 13:00 08/12/19 02:24 Proventil Hfa INH Not Given [id number] JALYN Amlodipine Besylate 5 mg 08/12/19 09:00 08/12/19 08:40 Norvasc PO Not Given DAILY JALYN Calcium Carbonate 1,000 mg 08/06/19 21:43 08/08/19 12:10 Tums PO 1,000 mg Q4H PRN Administration Heartburn or Indigestion Enoxaparin Sodium 30 mg 08/09/19 21:00 08/12/19 08:41 Lovenox SC 30 mg 0900,2100 JALYN Administration Famotidine 20 mg 08/09/19 21:00 08/12/19 08:41 Pepcid SLOW IVP 20 mg BID JALYN Administration Guaifenesin/Dextromethorphan 15 ml 08/06/19 21:43 08/11/19 08:34 Robitussin Dm PO 15 ml Q4H PRN Administration Cough Hydralazine HCl 10 mg 08/11/19 15:35 08/11/19 17:25 Apresoline SLOW IVP 10 mg Q4H PRN Administration SBP > 180 and HR < 70 Sodium Chloride 1,000 mls @ 100 mls/hr 08/06/19 22:45 08/12/19 08:50 Normal Saline 0.9% IV 1,000 mls .Q10H JALYN Administration Insulin Glargine 15 units/ 0.15 mls @ 0 mls/hr 08/08/19 09:00 08/12/19 08:42 Miscellaneous Medication SC 0.15 mls QAM JALYN Administration Azithromycin 500 mg/ Sodium 250 mls @ 250 mls/hr 08/10/19 09:00 08/12/19 08: 40 Chloride IVPB 250 mls 0900 JALYN Administration Cefepime HCl 1 gm/ Sodium 100 mls @ 200 mls/hr 08/09/19 21:00 08/12/19 08:40 Chloride IVPB 100 mls 0900,2100 JALYN Administration Remdesivir 100 Mg In 250 mls @ 250 mls/hr 08/10/19 17:00 08/11/19 15:55 Sodium Chloride 0.9 IV 08/13/19 17:59 250 mls % 250 Ml 230 Ml Q24H JALYN Administration Insulin Human Lispro 0 units 08/06/19 21:43 08/11/19 06:23 Humalog SC 6 unit .AGGRESSIVE SLIDING PRN Administration Aggressive Correctional Scale Insulin Human Lispro 0 units 08/06/19 21:43 08/08/19 01:17 Humalog SC 5 unit .BEDTIME SLIDING SC PRN Administration Bedtime Correctional Scale Lisinopril 10 mg 08/08/19 09:00 08/12/19 08:02 Zestril PO Not Given DAILY JALYN Loperamide HCl 2 mg 08/08/19 08:04 08/08/19 12:10 Imodium PO 2 mg PRN PRN Administration Diarrhea/Loose Stools Lorazepam 0.5 mg 08/11/19 15:28 08/11/19 15:54 Ativan SLOW IVP 0.5 mg Q6H PRN Administration Anxiety/Agitation Metformin HCl 850 mg 08/08/19 08:00 08/12/19 08:39 Glucophage PO 850 mg BID-WM JALYN Administration Methylprednisolone Sodium Succinate 40 mg 08/12/19 12:00 08/12/19 11:17 Solu-Medrol IVP 40 mg Q6HR JALYN Administration Ondansetron HCl 4 mg 08/06/19 21:43 08/09/19 12:45 Zofran IVP 4 mg Q6H PRN Administration Nausea/Vomiting Propofol 0 mg 08/11/19 18:37 08/12/19 14:54 Diprivan IV 1,000 mg INF PRN Administration Sedation Protocol Sodium Chloride 10 ml 08/10/19 21:00 08/12/19 08:43 Flush - Normal Saline IVF 10 ml Q12HR JALYN Administration Thiamine HCl 50 mg 08/08/19 09:00 08/12/19 08:39 Thiamine PO 50 mg DAILY JALYN Administration Hosp A/P - Plan * COVID infection- with respiratory failure- * Acute res failure d/t above requiring intubation. * Continue Remdesivir * CW zithro and cefepime * --IV steroid * - weaning trial today. * * HTN- blood pressure is elevated-- * --PRN medication for blood pressure-+ norvasc * * * DM2 * --metformin, lantus 15 units and SSI full code.
[2019-08-12] MEDS: REMDESIVIR 100 MG in Sodium Chloride 0.9% 250 ML 230 ML IV SCH (16:29)
[2019-08-12] MEDS: HumaLOG 300 UNITS/3 ML VIAL SC PRN ×2 (17:16→22:02)
--- NOTE | 2019-08-12 18:59 | PRG ---
DATE OF SERVICE: 08/12/2019 SUBJECTIVE: Mr. Carlos has deteriorated and had to be intubated. He has been started on tocilizumab and has been switched to Medrol. He is still finishing up his remdesivir. OBJECTIVE: VITAL SIGNS: His temperature is normal, O2 saturations are at 99% with FiO2 40%, BP is normal, and pulse 71. LUNGS: Symmetric air entry. HEART: S1, S2. ABDOMEN: Soft. LABORATORY DATA: White cell count is 12.3, hemoglobin 11, platelets 327, 81% neutrophils. The D-dimer is up to 6.13 and the ferritin is down to 401. C-reactive protein down to 7.07. Blood culture, no growth. Chest x-ray with worsening bilateral airspace opacities. ASSESSMENT AND DISCUSSION: Type 2 diabetes, hypertension, COVID pneumonia with severe manifestation, now intubated, has received corticosteroids and remdesivir and tocilizumab. He has some evidence suggestive of edema. May need an echocardiogram to evaluate cardiac function since it has been known to be affected by severe manifestations of viral infection in some patients. Check BNP. Job ID: [id number]
[2019-08-13] MEDS: Sodium Chloride 0.9% 1,000 ML IV SCH ×3 (00:38→12:56)
[2019-08-13 03:36] LABS: #Lymphocytes 0.4 thou/uL (1.20-3.40); #Monocytes 0.2 thou/uL (0.11-0.59); #Neutrophils 7.7 thou/uL (1.40-6.50); %Eosinophils 0.3 % (0.0-10.0); %Lymphocytes 5.2 % (21.0-51.0); %Monocytes 2.5 % (0.0-10.0); Hemoglobin 10.7 g/dL (14.0-18.0); Mean Corpuscular HGB CONC 33.5 g/dL (32.0-36.0); Mean Corpuscular Hemoglobin 32.6 pg (27.0-31.0); Mean Corpuscular Volume 97.5 fL (78.0-98.0); Mean Platelet Volume 7.8 fL (7.4-10.4); Platelet Count 262 thou/uL (130-400); RBC Distribution Width 11.8 % (11.5-14.5); Red Blood Cell (RBC) Count 3.29 mill/uL (4.70-6.10); White Blood Cell (WBC) Count 8.4 thou/uL (4.8-10.8)
[2019-08-13] MEDS: Propofol 1,000 MG/100 ML VIAL IV PRN ×4 (03:41→23:03)
[2019-08-13 03:53] LABS: ALT (SGPT) 19 U/L (8-55); AST (SGOT) 27 U/L (5-34); Albumin 2.4 g/dL (3.4-4.8); Alkaline Phosphatase 87 U/L (40-110); Anion Gap 12 mmol/L (10-20); BUN (Urea Nitrogen) 35 mg/dL (8.4-25.7); Bilirubin, Direct 0.3 mg/dL (0.1-0.3); Bilirubin, Total 0.4 mg/dL (0.2-1.2); CRP (Inflammatory) 8.87 mg/dL (= or < 0.5); Calc. Creatinine Clearance 67 mL/min (70-130); Calcium 7.2 mg/dL (7.8-10.44); Carbon Dioxide 14 mmol/L (23-31); Chloride 123 mmol/L (98-107); Estimated GFR-MDRD 82; Glucose 217 mg/dL (80-115); Potassium 4.2 mmol/L (3.5-5.1); Protein, Total 5.1 g/dL (5.8-8.1); Sodium 145 mmol/L (136-145)
[2019-08-13] MEDS: methylPREDNISolone Sod Succ 40 MG VIAL IVP SCH ×4 (06:12→23:04)
[2019-08-13] MEDS: HumaLOG 300 UNITS/3 ML VIAL SC PRN ×4 (06:12→20:35)
[2019-08-13] MEDS: Albuterol 200 PUFF (6.7GM INHALER) INH SCH ×4 (07:02→14:03)
--- NOTE | 2019-08-13 07:50 | RAD ---
EXAM: CHEST ONE VIEW HISTORY: On ventilator. Follow-up evaluation. COMPARISON: 08/11/2019 FINDINGS: Endotracheal tube remains in place and unchanged in position. There has been interval placement of a nasogastric tube which courses into the upper abdomen, but the tip is not visualized. Cardiac silhouette is stable in size. Again noted are increased interstitial and alveolar opacities within th e lungs bilaterally greater at each lung base. Given differences in technique, these airspace opacities have not significantly changed compared to prior exam. Again noted is suggestion of small b ilateral pleural effusions. No other interval change. IMPRESSION: 1. Endotracheal tube stable in position with interval placement of a nasogastric tube. 2. Persistent bilateral airspace opacities which may be related to asymmetric pulmonary edema versus infectious process. Continued follow-up recommended.
[2019-08-13] MEDS: Thiamine 100 MG TAB PO SCH (08:00)
[2019-08-13] MEDS: Enoxaparin Sodium 30 MG/0.3 ML SYRINGE SC SCH ×2 (08:00→20:37)
[2019-08-13] MEDS: Famotidine/PF 20 mg/2ml Vial SLOW IVP SCH ×2 (08:00→20:35)
[2019-08-13] MEDS: Amlodipine 5 MG TAB PO SCH (08:00)
[2019-08-13] MEDS: Cefepime 1 GM in Sodium Chloride 0.9% 100 ML IVPB SCH ×2 (08:01→20:36)
[2019-08-13] MEDS: Azithromycin 500 MG in Sodium Chloride 0.9% 250 ML 250 ML IVPB SCH (08:30)
[2019-08-13] MEDS: Insulin Glargine 15 UNITS in Pre-Filled Syringe 1 EACH SC SCH (08:30)
[2019-08-13] MEDS: metFORMIN 850 MG TAB PO SCH ×2 (08:30→16:45)
[2019-08-13] MEDS: Lisinopril 10 MG TAB PO SCH (08:31)
[2019-08-13] MEDS ORDERED: Furosemide 20 MG/2 ML VIAL SLOW IVP SCH (09:30)
[2019-08-13] MEDS: Lorazepam 2 MG/ML VIAL SLOW IVP PRN ×2 (09:54→20:35)
--- NOTE | 2019-08-13 10:03 | PRG ---
DATE OF SERVICE: 08/13/2019 SUBJECTIVE: Intubated in the vent and sedated. OBJECTIVE: VITAL SIGNS: Blood pressure 160/86, pulse 88, temperature 98, 40% FiO2, sats are 97%. CHEST: Decreased breath sounds. Rhonchi, crackles. CARDIAC: Normal S1 and S2. No gallops. ABDOMEN: No masses. LABORATORY DATA: BNP slightly elevated at 588. Liver function is normal. White count 8000. Renal function normal. ASSESSMENT: Diabetes, coronavirus positive pneumonia, respiratory failure. He has received remdesivir, plasma, steroids as well as tocilizumab 40 mg. He has had all his medications, now it is just a matter of having his lung healed with supportive care and time. X-ray shows somewhat improvement. Decrease his IV fluids. One dose of Lasix. One-half hour of critical care time. Job ID: [id number]
--- NOTE | 2019-08-13 15:57 | PDOC.HOSPP ---
- Subjective Encounter Date: 08/13/19 Encounter Time: 13:00 Subjective: pt not seen- peripherally following, CCM,labs and meds reviewed. still on vent. - Objective Vital Signs & Weight: Vital Signs (12 hours) Temp Pulse Resp BP Pulse Ox 08/13/19 14:03 107 H 156/65 H 08/13/19 14:00 31 H 08/13/19 12:00 98.3 F 29 H 08/13/19 10:20 101 H 08/13/19 10:00 35 H 08/13/19 08:31 160/86 H 08/13/19 08:29 88 154/85 H 08/13/19 08:00 98.1 F 81 151/81 H 08/13/19 07:49 28 H 99 08/13/19 06:00 28 H 08/13/19 04:00 98.6 F 32 H Weight Admit Weight 128 lb 1.417 oz Weight 140 lb Most Recent Monitor Data Heart Rate from ECG 80 NIBP 119/64 NIBP BP-Mean 82 Respiration from ECG 23 SpO2 94 I&O: 08/12/19 08/13/19 08/14/19 06:59 06:59 06:59 Intake Total 1422 3742 Output Total 705 1030 2100 Balance 717 2712 -2100 Result Diagrams: 08/13/19 03:08 08/13/19 03:08 Additional Labs: Accuchecks 08/12/19 08/12/19 22:07 16:40 POC Glucose 204 H 186 H Hospitalist ROS - Medication Medications: Active Medications Generic Name Dose Route Start Last Admin Trade Name Freq PRN Reason Stop Dose Admin Acetaminophen 650 mg 08/06/19 21:43 08/10/19 01:43 Tylenol PO 650 mg Q4H PRN Administration Headache/Fever/Mild Pain (1-3) Albuterol Sulfate 2 puff 08/09/19 13:00 08/13/19 14:03 Proventil Hfa INH Not Given [id number] JALYN Amlodipine Besylate 5 mg 08/12/19 09:00 08/13/19 08:00 Norvasc PO 5 mg DAILY JALYN Administration Calcium Carbonate 1,000 mg 08/06/19 21:43 08/08/19 12:10 Tums PO 1,000 mg Q4H PRN Administration Heartburn or Indigestion Enoxaparin Sodium 30 mg 08/09/19 21:00 08/13/19 08:00 Lovenox SC 30 mg 09,2099 JALYN Administration Famotidine 20 mg 08/09/19 21:00 08/13/19 08:00 Pepcid SLOW IVP 20 mg BID JALYN Administration Guaifenesin/Dextromethorphan 15 ml 08/06/19 21:43 08/11/19 08:34 Robitussin Dm PO 15 ml Q4H PRN Administration Cough Hydralazine HCl 10 mg 08/11/19 15:35 08/11/19 17:25 Apresoline SLOW IVP 10 mg Q4H PRN Administration SBP > 180 and HR < 70 Insulin Glargine 15 units/ 0.15 mls @ 0 mls/hr 08/08/19 09:00 08/13/19 08:30 Miscellaneous Medication SC 0.15 mls QAM JALYN Administration Cefepime HCl 1 gm/ Sodium 100 mls @ 200 mls/hr 08/09/19 21:00 08/13/19 08:01 Chloride IVPB 100 mls JALYN Administration Remdesivir 100 Mg In 250 mls @ 250 mls/hr 08/10/19 17:00 08/12/19 16:29 Sodium Chloride 0.9 IV 08/13/19 17:59 250 mls % 250 Ml 230 Ml Q24H JALYN Administration Sodium Chloride 1,000 mls @ 50 mls/hr 08/13/19 09:24 08/13/19 12:56 Normal Saline 0.9% IV 1,000 mls .Q20H JALYN Administration Insulin Human Lispro 0 units 08/06/19 21:43 08/13/19 10:53 Humalog SC 6 unit .AGGRESSIVE SLIDING PRN Administration Aggressive Correctional Scale Insulin Human Lispro 0 units 08/06/19 21:43 08/08/19 01:17 Humalog SC 5 unit .BEDTIME SLIDING SC PRN Administration Bedtime Correctional Scale Lisinopril 10 mg 08/08/19 09:00 08/13/19 08:31 Zestril PO 10 mg DAILY JALYN Administration Loperamide HCl 2 mg 08/08/19 08:04 08/08/19 12:10 Imodium PO 2 mg PRN PRN Administration Diarrhea/Loose Stools Lorazepam 0.5 mg 08/11/19 15:28 08/13/19 09:54 Ativan SLOW IVP 0.5 mg Q6H PRN Administration Anxiety/Agitation Metformin HCl 850 mg 08/08/19 08:00 08/13/19 08:30 Glucophage PO 850 mg BID-WM JALYN Administration Methylprednisolone Sodium Succinate 40 mg 08/12/19 12:00 08/13/19 11:10 Solu-Medrol IVP 40 mg Q6HR JALYN Administration Ondansetron HCl 4 mg 08/06/19 21:43 08/09/19 12:45 Zofran IVP 4 mg Q6H PRN Administration Nausea/Vomiting Propofol 0 mg 08/11/19 18:37 08/13/19 10:41 Diprivan IV 1,000 mg INF PRN Administration Sedation Protocol Sodium Chloride 10 ml 08/10/19 21:00 08/13/19 08:02 Flush - Normal Saline IVF 10 ml Q12HR JALYN Administration Thiamine HCl 50 mg 08/08/19 09:00 08/13/19 08:00 Thiamine PO 50 mg DAILY JALYN Administration Hosp A/P - Plan * COVID infection- with respiratory failure- * Acute res failure d/t above requiring intubation. * Continue Remdesivir * CW zithro and cefepime * --IV steroid * - weaning trial today. * * HTN- blood pressure is elevated-- * --PRN medication for blood pressure-+ norvasc * * * DM2 * --metformin, lantus 15 units and SSI full code.
[2019-08-13] MEDS: REMDESIVIR 100 MG in Sodium Chloride 0.9% 250 ML 230 ML IV SCH (16:46)
[2019-08-13] MEDS: fentaNYL Citrate/PF 2,000 MCG in Sodium Chloride 0.9% 60 ML IV SCH (21:41)
[2019-08-14 03:40] LABS: #Eosinphils 0.1 thou/uL (0.0-0.7); #Lymphocytes 0.4 thou/uL (1.20-3.40); #Monocytes 0.3 thou/uL (0.11-0.59); #Neutrophils 10.7 thou/uL (1.40-6.50); %Eosinophils 0.4 % (0.0-10.0); %Lymphocytes 3.6 % (21.0-51.0); %Monocytes 2.6 % (0.0-10.0); %Neutrophils 93.4 % (42.0-75.0); Hemoglobin 10.6 g/dL (14.0-18.0); Mean Corpuscular HGB CONC 33.1 g/dL (32.0-36.0); Mean Corpuscular Hemoglobin 32.3 pg (27.0-31.0); Mean Corpuscular Volume 97.8 fL (78.0-98.0); Platelet Count 276 thou/uL (130-400); RBC Distribution Width 11.8 % (11.5-14.5); Red Blood Cell (RBC) Count 3.28 mill/uL (4.70-6.10); White Blood Cell (WBC) Count 11.5 thou/uL (4.8-10.8)
[2019-08-14 04:00] LABS: ALT (SGPT) 22 U/L (8-55); AST (SGOT) 23 U/L (5-34); Albumin 2.3 g/dL (3.4-4.8); Alkaline Phosphatase 81 U/L (40-110); Anion Gap 10 mmol/L (10-20); BUN (Urea Nitrogen) 36 mg/dL (8.4-25.7); Bilirubin, Direct 0.2 mg/dL (0.1-0.3); Bilirubin, Total 0.4 mg/dL (0.2-1.2); CRP (Inflammatory) 4.83 mg/dL (= or < 0.5); Calc. Creatinine Clearance 63 mL/min (70-130); Calcium 7.3 mg/dL (7.8-10.44); Carbon Dioxide 19 mmol/L (23-31); Chloride 120 mmol/L (98-107); Estimated GFR-MDRD 74; Glucose 274 mg/dL (80-115); Potassium 4.2 mmol/L (3.5-5.1); Sodium 145 mmol/L (136-145)
[2019-08-14] MEDS: Sodium Chloride 0.9% 1,000 ML IV SCH ×2 (05:20→14:00)
[2019-08-14] MEDS: methylPREDNISolone Sod Succ 40 MG VIAL IVP SCH ×4 (05:20→23:45)
[2019-08-14] MEDS: HumaLOG 300 UNITS/3 ML VIAL SC PRN ×4 (05:23→21:16)
[2019-08-14] MEDS: Propofol 1,000 MG/100 ML VIAL IV PRN ×3 (06:54→20:36)
[2019-08-14] MEDS: Albuterol 200 PUFF (6.7GM INHALER) INH SCH (07:14)
[2019-08-14] MEDS: Enoxaparin Sodium 30 MG/0.3 ML SYRINGE SC SCH ×2 (08:28→20:36)
[2019-08-14] MEDS: Famotidine/PF 20 mg/2ml Vial SLOW IVP SCH ×2 (08:29→20:36)
[2019-08-14] MEDS: Lisinopril 10 MG TAB PO SCH (08:29)
[2019-08-14] MEDS: Amlodipine 5 MG TAB PO SCH (08:29)
[2019-08-14] MEDS: Cefepime 1 GM in Sodium Chloride 0.9% 100 ML IVPB SCH ×2 (08:29→20:36)
[2019-08-14] MEDS: Thiamine 100 MG TAB PO SCH (08:29)
[2019-08-14] MEDS: Insulin Glargine 15 UNITS in Pre-Filled Syringe 1 EACH SC SCH (08:30)
[2019-08-14] MEDS: metFORMIN 850 MG TAB PO SCH ×2 (08:33→17:18)
--- NOTE | 2019-08-14 09:47 | RAD ---
PORTABLE CHEST 1 VIEW: DATE: 08/14/2019. TIME: 5:49 AM. HISTORY: Respiratory failure. COMPARISON: Previous day. FINDINGS/IMPRESSION: Endotracheal and nasogastric tubes remain in place. The heart size is stable. Bilateral airspace op acities show minimal improvement in the left lower lung [place]. POS: H
[2019-08-14] MEDS ORDERED: Vecuronium 10 MG VIAL ONE (10:30)
--- NOTE | 2019-08-14 12:07 | PRG ---
DATE OF SERVICE: 08/14/2019 SUBJECTIVE: Patient remains in the ICU, intubated, on the vent, sedated, tracking his vent. OBJECTIVE: VITAL SIGNS: Temperature is 98, pulse 90. Blood pressure 104/60, on 40%. His saturations are 95%. His I's and O's have been consistently even. CHEST: Crackles, wheezing. CARDIAC: Normal S1, S2. ABDOMEN: No masses. DIAGNOSTICS: LABORATORY: D-dimer is elevated. His lytes are normal. Ferritin 368. His C-reactive protein is still elevated. IMAGING: X-ray diffuse infiltrate. ASSESSMENT: 1. Respiratory failure. 2. Coronavirus positive pneumonia. 3. Acute respiratory distress syndrome. 4. Encephalopathy. PLAN: He is not weanable. I will switch him over to bilevel. Additionally, probably, he is from time to time. He is on Zithromax, Maxipime. He has received remdesivir, conjugated plasma, and IL-6 antibody. Prognosis remains guarded. CRITICAL CARE TIME: One-half hour of critical time. Job ID: [id number]
--- NOTE | 2019-08-14 15:30 | PDOC.HOSPP ---
- Subjective Encounter Date: 08/14/19 Encounter Time: 09:40 Subjective: pt being followed remotely, on vent, bi-level today. labs, CCM notes reviewed. - Objective Vital Signs & Weight: Vital Signs (12 hours) Temp Pulse Resp BP Pulse Ox 08/14/19 14:59 64 130/69 08/14/19 14:00 20 08/14/19 12:38 74 08/14/19 12:00 98.5 F 20 08/14/19 10:53 82 121/60 08/14/19 10:00 16 08/14/19 09:22 98 104/60 08/14/19 08:29 83 116/61 08/14/19 08:00 98.4 F 23 H 91 L 08/14/19 06:00 14 08/14/19 04:00 14 Weight Admit Weight 128 lb 1.417 oz Weight 138 lb 14.259 oz Most Recent Monitor Data Heart Rate from ECG 64 NIBP 130/69 NIBP BP-Mean 89 Respiration from ECG 10 SpO2 98 I&O: 08/13/19 08/14/19 08/15/19 06:59 06:59 06:59 Intake Total 5365 2720 120 Output Total 1030 6240 630 Balance 2712 -537 -702 Result Diagrams: 08/14/19 03:23 08/14/19 03:23 Additional Labs: Accuchecks 08/14/19 08/13/19 08/13/19 12:27 19:47 16:54 POC Glucose 243 H 221 H 246 H 08/13/19 10:51 POC Glucose 245 H Hospitalist ROS - Medication Medications: Active Medications Generic Name Dose Route Start Last Admin Trade Name Wan PRN Reason Stop Dose Admin Acetaminophen 650 mg 08/06/19 21:43 08/10/19 01:43 Tylenol PO 650 mg Q4H PRN Administration Headache/Fever/Mild Pain (1-3) Albuterol/Ipratropium 3 ml 08/13/19 19:00 08/14/19 12:38 Duoneb NEB 3 ml [id number] JALYN Administration Amlodipine Besylate 5 mg 08/12/19 09:00 08/14/19 08:29 Norvasc PO 5 mg DAILY JALYN Administration Calcium Carbonate 1,000 mg 08/06/19 21:43 08/08/19 12:10 Tums PO 1,000 mg Q4H PRN Administration Heartburn or Indigestion Enoxaparin Sodium 30 mg 08/09/19 21:00 08/14/19 08:28 Lovenox SC 30 mg 0900,2100 JALYN Administration Famotidine 20 mg 08/09/19 21:00 08/14/19 08:29 Pepcid SLOW IVP 20 mg BID JALYN Administration Guaifenesin/Dextromethorphan 15 ml 08/06/19 21:43 08/11/19 08:34 Robitussin Dm PO 15 ml Q4H PRN Administration Cough Hydralazine HCl 10 mg 08/11/19 15:35 08/11/19 17:25 Apresoline SLOW IVP 10 mg Q4H PRN Administration SBP > 180 and HR < 70 Insulin Glargine 15 units/ 0.15 mls @ 0 mls/hr 08/08/19 09:00 08/14/19 08:30 Miscellaneous Medication SC 0.15 mls QAM JALYN Administration Cefepime HCl 1 gm/ Sodium 100 mls @ 200 mls/hr 08/09/19 21:00 08/14/19 08:29 Chloride IVPB 100 mls 09,2100 JALYN Administration Sodium Chloride 1,000 mls @ 50 mls/hr 08/13/19 09:24 08/14/19 14:00 Normal Saline 0.9% IV 1,000 mls .Q20H JALYN Administration Fentanyl Citrate 2,000 mcg/ 100 mls @ 0 mls/hr 08/13/19 20:38 08/13/19 21:41 Sodium Chloride IV 09/12/19 20:38 100 mls INF JALYN Administration Protocol Per Protocol Insulin Human Lispro 0 units 08/06/19 21:43 08/14/19 12:43 Humalog SC 6 unit .AGGRESSIVE SLIDING PRN Administration Aggressive Correctional Scale Insulin Human Lispro 0 units 08/06/19 21:43 08/08/19 01:17 Humalog SC 5 unit .BEDTIME SLIDING SC PRN Administration Bedtime Correctional Scale Lisinopril 10 mg 08/08/19 09:00 08/14/19 08:29 Zestril PO 10 mg DAILY JALYN Administration Loperamide HCl 2 mg 08/08/19 08:04 08/08/19 12:10 Imodium PO 2 mg PRN PRN Administration Diarrhea/Loose Stools Lorazepam 0.5 mg 08/11/19 15:28 08/13/19 20:35 Ativan SLOW IVP 0.5 mg Q6H PRN Administration Anxiety/Agitation Metformin HCl 850 mg 08/08/19 08:00 08/14/19 08:33 Glucophage PO 850 mg BID-WM JALYN Administration Methylprednisolone Sodium Succinate 40 mg 08/12/19 12:00 08/14/19 12:07 Solu-Medrol IVP 40 mg Q6HR JALYN Administration Ondansetron HCl 4 mg 08/06/19 21:43 08/09/19 12:45 Zofran IVP 4 mg Q6H PRN Administration Nausea/Vomiting Propofol 0 mg 08/11/19 18:37 08/14/19 14:00 Diprivan IV 1,000 mg INF PRN Administration Sedation Protocol Sodium Chloride 10 ml 08/10/19 21:00 08/14/19 08:30 Flush - Normal Saline IVF 10 ml Q12HR JALYN Administration Thiamine HCl 50 mg 08/08/19 09:00 08/14/19 08:29 Thiamine PO 50 mg DAILY JALYN Administration Hosp A/P - Plan * COVID infection- with respiratory failure- * Acute res failure d/t above requiring intubation. * Continue Remdesivir * CW zithro and cefepime * --IV steroid * - weaning trial today. * * HTN- blood pressure is elevated-- * --PRN medication for blood pressure-+ norvasc * * * DM2 * --metformin, lantus 15 units and SSI 1st -continued to be on vent -bilevel s/p remdesivir, plasma on IV steroid 40 q6 d-dier - 11.6 Ferritin-368 adn cRP 4.68 Hyperglycemia - uptitrated the insulin. full code.
[2019-08-14] MEDS: Vecuronium 10 MG VIAL IV PRN ×3 (15:57→23:45)
[2019-08-14] MEDS: fentaNYL Citrate/PF 2,000 MCG in Sodium Chloride 0.9% 60 ML IV SCH (20:37)
[2019-08-14] MEDS: HumuLIN 70/30 (300 UNITS/3 ML VIAL) SC SCH (20:52)
[2019-08-14] MEDS ORDERED: HumuLIN 70/30 (300 UNITS/3 ML VIAL) SC SCH (21:00)
[2019-08-14 23:13] LABS: Actual Bicarbonate (HCO3a) 18.3 mEq/L (22-28); Base Excess (BEa) -8.1 mEq/L (-2.0 to +3.0); CO2 Tension 40.6 mmHg (35.0-45.0); Calcium, Ionized (arterial) 1.19 mmol/L (1.12-1.30); Carboxyhemoglobin (COHb) 0.3 gm% (0.0-3.0); Potassium - ABG Lab 4.61 mmol/L (3.70-5.30); pH, Arterial 7.27 (7.35-7.45)
[2019-08-14 23:15] LABS: O2 Tension (PaO2), arterial 59.3 mmHg (> 80.0); Puncture Site RRA
[2019-08-15 04:23] LABS: ALT (SGPT) 19 U/L (8-55); AST (SGOT) 19 U/L (5-34); Albumin 2.4 g/dL (3.4-4.8); Alkaline Phosphatase 76 U/L (40-110); Anion Gap 13 mmol/L (10-20); BUN (Urea Nitrogen) 38 mg/dL (8.4-25.7); Bilirubin, Direct 0.2 mg/dL (0.1-0.3); Bilirubin, Total 0.3 mg/dL (0.2-1.2); Calc. Creatinine Clearance 73 mL/min (70-130); Calcium 7.4 mg/dL (7.8-10.44); Carbon Dioxide 19 mmol/L (23-31); Chloride 120 mmol/L (98-107); Estimated GFR-MDRD 89; Glucose 212 mg/dL (80-115); Potassium 4.6 mmol/L (3.5-5.1); Sodium 147 mmol/L (136-145)
[2019-08-15 05:01] LABS: Band 17 % (5-11); Hemoglobin 10.4 g/dL (14.0-18.0); Lymphocytes 4 % (21-51); MDiff Complete? YES; Mean Corpuscular HGB CONC 33.4 g/dL (32.0-36.0); Mean Corpuscular Hemoglobin 32.8 pg (27.0-31.0); Mean Corpuscular Volume 98.4 fL (78.0-98.0); Mean Platelet Volume 8.1 fL (7.4-10.4); Monocytes 2 % (0-10); Neutrophil 77 % (42-75); Platelet Count 267 thou/uL (130-400); Platelet Morphology Comment Appears Adequate; Red Blood Cell (RBC) Count 3.16 mill/uL (4.70-6.10); White Blood Cell (WBC) Count 14.1 thou/uL (4.8-10.8)
[2019-08-15] MEDS: Propofol 1,000 MG/100 ML VIAL IV PRN ×2 (05:16→23:25)
[2019-08-15] MEDS: methylPREDNISolone Sod Succ 40 MG VIAL IVP SCH ×2 (05:16→20:48)
--- NOTE | 2019-08-15 08:19 | RAD ---
PORTABLE CHEST 1 VIEW: DATE: 08/15/2019. TIME: 12:17 AM. HISTORY: Respiratory failure. FINDINGS/IMPRESSION: Allowing for differences in technique, no significant interval change is seen since the previous day' s exam. POS: ULISES
[2019-08-15] MEDS: Thiamine 100 MG TAB PO SCH (08:55)
[2019-08-15] MEDS: Famotidine/PF 20 mg/2ml Vial SLOW IVP SCH ×2 (08:55→20:45)
[2019-08-15] MEDS: Cefepime 1 GM in Sodium Chloride 0.9% 100 ML IVPB SCH ×2 (08:56→20:45)
[2019-08-15] MEDS: Amlodipine 5 MG TAB PO SCH (08:56)
[2019-08-15] MEDS: Enoxaparin Sodium 30 MG/0.3 ML SYRINGE SC SCH ×2 (08:57→20:45)
[2019-08-15] MEDS: HumaLOG 300 UNITS/3 ML VIAL SC PRN ×2 (09:07→16:22)
[2019-08-15] MEDS: metFORMIN 850 MG TAB PO SCH ×2 (09:30→16:21)
[2019-08-15] MEDS: Lisinopril 10 MG TAB PO SCH (09:33)
[2019-08-15] MEDS: HumuLIN 70/30 (300 UNITS/3 ML VIAL) SC SCH ×2 (10:11→20:46)
--- NOTE | 2019-08-15 10:41 | PRG ---
DATE OF SERVICE: 08/15/2019 SUBJECTIVE: He is a 69-year-old gentleman, intubated in the vent. OBJECTIVE: VITAL SIGNS: Pulse 56, blood pressure 142/66. Saturations on 40% are 100%. His x-ray shows much improvement. His I's and O's have been good. CHEST: Decreased breath sounds. No wheezing or crackles. CARDIAC: Normal S1 and S2. No gallops. ABDOMEN: Soft. LABORATORY DATA: White count 14,000, hemoglobin and hematocrit of 10 and 30, platelet count 263. Lytes are normal. BUN and creatinine normal. ASSESSMENT: Respiratory failure, coronavirus positive pneumonia, encephalopathy. Events being adjusted. Continue nutrition, PT. He has had remdesivir, plasma, and IL-6. One-half hour of critical care time. We will follow. Job ID: [id number]
[2019-08-15] MEDS: Sodium Chloride 0.9% 1,000 ML IV SCH (12:50)
--- NOTE | 2019-08-15 15:50 | PDOC.HOSPP ---
- Subjective Encounter Date: 08/15/19 Subjective: pt not seen, peripherally following. still on the vent, wbcs elevated/ d-dier 11.6 ferritin -- 368 CRP --- 4.83 - Objective Vital Signs & Weight: Vital Signs (12 hours) Temp Pulse Resp BP 08/15/19 14:29 51 L 138/64 08/15/19 13:55 10 L 08/15/19 13:00 98.2 F 08/15/19 12:10 52 L 08/15/19 12:00 10 L 08/15/19 10:00 10 L 08/15/19 08:56 56 L 08/15/19 08:18 56 L 08/15/19 08:00 10 L 08/15/19 06:00 10 L 08/15/19 05:00 98.5 F 08/15/19 04:00 10 L Weight Admit Weight 128 lb 1.417 oz Weight 138 lb 0.15 oz Most Recent Monitor Data Heart Rate from ECG 51 NIBP 134/61 NIBP BP-Mean 85 Respiration from ECG 10 SpO2 100 I&O: 08/14/19 08/15/19 08/16/19 06:59 06:59 06:59 Intake Total 2727 2548 Output Total 2965 1820 355 Balance -238 728 -355 Result Diagrams: 08/15/19 03:24 08/15/19 03:24 Additional Labs: Accuchecks 08/15/19 08/15/19 08/14/19 09:19 06:14 20:59 POC Glucose 178 H 197 H 234 H 08/14/19 17:33 POC Glucose 193 H Hospitalist ROS - Medication Medications: Active Medications Generic Name Dose Route Start Last Admin Trade Name Freq PRN Reason Stop Dose Admin Acetaminophen 650 mg 08/06/19 21:43 08/10/19 01:43 Tylenol PO 650 mg Q4H PRN Administration Headache/Fever/Mild Pain (1-3) Albuterol/Ipratropium 3 ml 08/13/19 19:00 08/15/19 12:12 Duoneb NEB 3 ml [id number] JALYN Administration Amlodipine Besylate 5 mg 08/12/19 09:00 08/15/19 08:56 Norvasc PO 5 mg DAILY JALYN Administration Calcium Carbonate 1,000 mg 08/06/19 21:43 08/08/19 12:10 Tums PO 1,000 mg Q4H PRN Administration Heartburn or Indigestion Enoxaparin Sodium 30 mg 08/09/19 21:00 08/15/19 08:57 Lovenox SC 30 mg 0900,2100 JALYN Administration Famotidine 20 mg 08/09/19 21:00 08/15/19 08:55 Pepcid SLOW IVP 20 mg BID JALYN Administration Guaifenesin/Dextromethorphan 15 ml 08/06/19 21:43 08/11/19 08:34 Robitussin Dm PO 15 ml Q4H PRN Administration Cough Hydralazine HCl 10 mg 08/11/19 15:35 08/11/19 17:25 Apresoline SLOW IVP 10 mg Q4H PRN Administration SBP > 180 and HR < 70 Cefepime HCl 1 gm/ Sodium 100 mls @ 200 mls/hr 08/09/19 21:00 08/15/19 08:56 Chloride IVPB 100 mls 09,2099 JALYN Administration Sodium Chloride 1,000 mls @ 50 mls/hr 08/13/19 09:24 08/15/19 12:50 Normal Saline 0.9% IV 1,000 mls .Q20H JALYN Administration Fentanyl Citrate 2,000 mcg/ 100 mls @ 0 mls/hr 08/13/19 20:38 08/14/19 20:37 Sodium Chloride IV 09/12/19 20:38 100 mls INF JALYN Administration Protocol Per Protocol Insulin Human Isoph/Insulin Regular 20 units 08/14/19 21:00 08/15/19 10:11 Humulin 70/30 SC Not Given BID [facility] Insulin Human Lispro 0 units 08/06/19 21:43 08/15/19 09:07 Humalog SC 3 unit .AGGRESSIVE SLIDING PRN Administration Aggressive Correctional Scale Insulin Human Lispro 0 units 08/06/19 21:43 08/08/19 01:17 Humalog SC 5 unit .BEDTIME SLIDING SC PRN Administration Bedtime Correctional Scale Lisinopril 10 mg 08/08/19 09:00 08/15/19 09:33 Zestril PO 10 mg DAILY JALYN Administration Loperamide HCl 2 mg 08/08/19 08:04 08/08/19 12:10 Imodium PO 2 mg PRN PRN Administration Diarrhea/Loose Stools Lorazepam 0.5 mg 08/11/19 15:28 08/13/19 20:35 Ativan SLOW IVP 0.5 mg Q6H PRN Administration Anxiety/Agitation Metformin HCl 850 mg 08/08/19 08:00 08/15/19 09:30 Glucophage PO 850 mg BID-WM JALYN Administration Ondansetron HCl 4 mg 08/06/19 21:43 08/09/19 12:45 Zofran IVP 4 mg Q6H PRN Administration Nausea/Vomiting Propofol 0 mg 08/11/19 18:37 08/15/19 05:16 Diprivan IV 1,000 mg INF PRN Administration Sedation Protocol Sodium Chloride 10 ml 08/10/19 21:00 08/15/19 08:58 Flush - Normal Saline IVF 10 ml Q12HR JALYN Administration Thiamine HCl 50 mg 08/08/19 09:00 08/15/19 08:55 Thiamine PO 50 mg DAILY JALYN Administration Vecuronium [place] 10 mg 08/14/19 09:54 08/14/19 23:45 Norcuron IV 10 mg Q2H PRN Administration Agitation Hosp A/P - Plan * COVID infection- with respiratory failure- * Acute res failure d/t above requiring intubation. * Continue Remdesivir * CW zithro and cefepime * --IV steroid * - weaning trial today. * * HTN- blood pressure is elevated-- * --PRN medication for blood pressure-+ norvasc * * * DM2 * --metformin, lantus 15 units and SSI 1st -continued to be on vent -bilevel s/p remdesivir, plasma on IV steroid 40 q6 d-dimer - 11.6 Ferritin-368 adn cRP 4.68 Hyperglycemia - uptitrated the insulin. full code. 2nd still on the vent, wbcs elevated. [place] of -- neg -BG improved slightly.
[2019-08-16] MEDS: fentaNYL Citrate/PF 2,000 MCG in Sodium Chloride 0.9% 60 ML IV SCH (04:22)
[2019-08-16 07:43] LABS: Anion Gap 9 mmol/L (10-20); BUN (Urea Nitrogen) 38 mg/dL (8.4-25.7); Calc. Creatinine Clearance 83 mL/min (70-130); Calcium 7.6 mg/dL (7.8-10.44); Carbon Dioxide 24 mmol/L (23-31); Chloride 116 mmol/L (98-107); Estimated GFR-MDRD Greater than 90; Glucose 169 mg/dL (80-115); Potassium 4.7 mmol/L (3.5-5.1); Sodium 144 mmol/L (136-145)
[2019-08-16 08:46] LABS: Band 4 % (5-11); Hemoglobin 10.7 g/dL (14.0-18.0); Lymphocytes 3 % (21-51); MDiff Complete? YES; Mean Corpuscular HGB CONC 32.8 g/dL (32.0-36.0); Mean Corpuscular Hemoglobin 32.2 pg (27.0-31.0); Mean Corpuscular Volume 98.3 fL (78.0-98.0); Mean Platelet Volume 8.4 fL (7.4-10.4); Neutrophil 93 % (42-75); Nucleated RBC 1 % (0); Platelet Count 240 thou/uL (130-400); RBC Distribution Width 11.9 % (11.5-14.5); Red Blood Cell (RBC) Count 3.31 mill/uL (4.70-6.10); White Blood Cell (WBC) Count 14.6 thou/uL (4.8-10.8)
[2019-08-16] MEDS: Sodium Chloride 0.9% 1,000 ML IV SCH ×2 (09:33→20:29)
--- NOTE | 2019-08-16 09:44 | PRG ---
DATE OF SERVICE: 08/16/2019 SUBJECTIVE: Rogelio Carlos remains in the ICU, intubated in the vent, sedated. OBJECTIVE: VITAL SIGNS: Pulse 65, blood pressure 120/60. He is on 40% FiO2 and his saturations are 96% to 97%. GENERAL: He still remains encephalopathic and agitated. His I's and O's have been consistently positive. CHEST: Decreased breath sounds. No wheezing. CARDIAC: Normal S1, S2. No gallops. ABDOMEN: No masses. DIAGNOSTIC DATA: His last chest x-ray showed improvement in his infiltrates. ASSESSMENT AND PLAN: Respiratory failure secondary to coronavirus positive pneumonia. He has received IL-6 antibody, remdesivir, and plasma. He is on steroids and antibiotics. Continue nutrition, PT. Slow wean. One-hour of critical care time. Job ID: [id number]
[2019-08-16] MEDS: HumaLOG 300 UNITS/3 ML VIAL SC PRN (10:12)
[2019-08-16] MEDS: Thiamine 100 MG TAB PO SCH ×2 (10:16→20:28)
[2019-08-16] MEDS: Amlodipine 5 MG TAB PO SCH (10:18)
[2019-08-16] MEDS: Enoxaparin Sodium 30 MG/0.3 ML SYRINGE SC SCH ×2 (10:18→20:29)
[2019-08-16] MEDS: metFORMIN 850 MG TAB PO SCH ×2 (10:19→18:45)
[2019-08-16] MEDS: Cefepime 1 GM in Sodium Chloride 0.9% 100 ML IVPB SCH ×2 (10:34→20:28)
[2019-08-16] MEDS: HumuLIN 70/30 (300 UNITS/3 ML VIAL) SC SCH ×2 (10:35→20:29)
--- NOTE | 2019-08-16 14:19 | PDOC.HOSPP ---
- Subjective Encounter Date: 08/16/19 Encounter Time: 14:00 Subjective: pt being followed peripherally, COVID +ve, on vent. - Objective Vital Signs & Weight: Vital Signs (12 hours) Pulse Resp BP 08/16/19 10:44 58 L 08/16/19 10:18 65 128/60 08/16/19 08:20 65 128/60 08/16/19 06:00 17 08/16/19 04:00 10 L 08/16/19 03:26 60 156/74 H Weight Admit Weight 128 lb 1.417 oz Weight 138 lb 3.677 oz Most Recent Monitor Data Heart Rate from ECG 53 NIBP 129/65 NIBP BP-Mean 86 Respiration from ECG 18 SpO2 96 I&O: 08/15/19 08/16/19 08/17/19 06:59 06:59 06:59 Intake Total 2548 2179.0 300 Output Total 1820 1415 220 Balance 728 764.0 80 Result Diagrams: 08/16/19 07:11 08/16/19 07:11 Additional Labs: Accuchecks 08/16/19 08/15/19 06:57 21:03 POC Glucose 179 H 137 H Hospitalist ROS - Medication Medications: Active Medications Generic Name Dose Route Start Last Admin Trade Name Freq PRN Reason Stop Dose Admin Acetaminophen 650 mg 08/06/19 21:43 08/10/19 01:43 Tylenol PO 650 mg Q4H PRN Administration Headache/Fever/Mild Pain (1-3) Albuterol/Ipratropium 3 ml 08/13/19 19:00 08/16/19 13:09 Duoneb NEB 3 ml [id number] JALYN Administration Amlodipine Besylate 5 mg 08/12/19 09:00 08/16/19 10:18 Norvasc PO 5 mg DAILY JALYN Administration Calcium Carbonate 1,000 mg 08/06/19 21:43 08/08/19 12:10 Tums PO 1,000 mg Q4H PRN Administration Heartburn or Indigestion Enoxaparin Sodium 30 mg 08/09/19 21:00 08/16/19 10:18 Lovenox SC 30 mg 0900,2100 JALYN Administration Famotidine 20 mg 08/09/19 21:00 08/15/19 20:45 Pepcid SLOW IVP 20 mg BID JALYN Administration Guaifenesin/Dextromethorphan 15 ml 08/06/19 21:43 08/11/19 08:34 Robitussin Dm PO 15 ml Q4H PRN Administration Cough Hydralazine HCl 10 mg 08/11/19 15:35 08/11/19 17:25 Apresoline SLOW IVP 10 mg Q4H PRN Administration SBP > 180 and HR < 70 Cefepime HCl 1 gm/ Sodium 100 mls @ 200 mls/hr 08/09/19 21:00 08/16/19 10:34 Chloride IVPB 100 mls 0900,2100 JALYN Administration Sodium Chloride 1,000 mls @ 50 mls/hr 08/13/19 09:24 08/16/19 09:33 Normal Saline 0.9% IV 1,000 mls .Q20H JALYN Administration Fentanyl Citrate 2,000 mcg/ 100 mls @ 0 mls/hr 08/13/19 20:38 08/16/19 04:22 Sodium Chloride IV 09/12/19 20:38 100 mls INF JALYN Administration Protocol Per Protocol Insulin Human Isoph/Insulin Regular 20 units 08/14/19 21:00 08/16/19 10:35 Humulin 70/30 SC 20 unit BID JALYN Administration Insulin Human Lispro 0 units 08/06/19 21:43 08/15/19 16:22 Humalog SC 3 unit .AGGRESSIVE SLIDING PRN Administration Aggressive Correctional Scale Insulin Human Lispro 0 units 08/06/19 21:43 08/08/19 01:17 Humalog SC 5 unit .BEDTIME SLIDING SC PRN Administration Bedtime Correctional Scale Lisinopril 10 mg 08/08/19 09:00 08/15/19 09:33 Zestril PO 10 mg DAILY JALYN Administration Loperamide HCl 2 mg 08/08/19 08:04 08/08/19 12:10 Imodium PO 2 mg PRN PRN Administration Diarrhea/Loose Stools Lorazepam 0.5 mg 08/11/19 15:28 08/13/19 20:35 Ativan SLOW IVP 0.5 mg Q6H PRN Administration Anxiety/Agitation Metformin HCl 850 mg 08/08/19 08:00 08/16/19 10:19 Glucophage PO 850 mg BID-WM JALYN Administration Methylprednisolone Sodium Succinate 40 mg 08/15/19 21:00 08/15/19 20:48 Solu-Medrol IVP 40 mg BID JALYN Administration Ondansetron HCl 4 mg 08/06/19 21:43 08/09/19 12:45 Zofran IVP 4 mg Q6H PRN Administration Nausea/Vomiting Propofol 0 mg 08/11/19 18:37 08/15/19 23:25 Diprivan IV 1,000 mg INF PRN Administration Sedation Protocol Sodium Chloride 10 ml 08/10/19 21:00 08/15/19 20:47 Flush - Normal Saline IVF 10 ml Q12HR JALYN Administration Sodium Chloride 10 ml 08/10/19 09:38 08/16/19 10:39 Flush - Normal Saline IVF 10 ml PRN PRN Administration Saline Flush Thiamine HCl 50 mg 08/08/19 09:00 08/16/19 10:16 Thiamine PO 50 mg DAILY JALYN Administration Vecuronium [place] 10 mg 08/14/19 09:54 08/14/19 23:45 Norcuron IV 10 mg Q2H PRN Administration Agitation Hosp A/P - Plan * COVID infection- with respiratory failure- * Acute res failure d/t above requiring intubation. * Continue Remdesivir * CW zithro and cefepime * --IV steroid * - weaning trial today. * * HTN- blood pressure is elevated-- * --PRN medication for blood pressure-+ norvasc * * * DM2 * --metformin, lantus 15 units and SSI -continued to be on vent -bilevel s/p remdesivir, plasma on IV steroid 40 q6 d-dimer - 11.6 Ferritin-368 adn cRP 4.68 wbcs elevated.------> Bl [place] of -- neg Hyperglycemia------------> - uptitrated the insulin. - BG improved . full code.
[2019-08-16] MEDS: Propofol 1,000 MG/100 ML VIAL IV PRN (18:27)
[2019-08-16] MEDS: Famotidine/PF 20 mg/2ml Vial SLOW IVP SCH ×2 (20:27)
[2019-08-16] MEDS: Lisinopril 10 MG TAB PO SCH (20:27)
[2019-08-16] MEDS: methylPREDNISolone Sod Succ 40 MG VIAL IVP SCH ×2 (20:28)
[2019-08-17 03:56] LABS: #Lymphocytes 0.5 thou/uL (1.20-3.40); #Monocytes 0.2 thou/uL (0.11-0.59); #Neutrophils 18.4 thou/uL (1.40-6.50); %Eosinophils 0.2 % (0.0-10.0); %Lymphocytes 2.5 % (21.0-51.0); %Monocytes 1.1 % (0.0-10.0); %Neutrophils 96.2 % (42.0-75.0); Hemoglobin 11.6 g/dL (14.0-18.0); Mean Corpuscular HGB CONC 32.4 g/dL (32.0-36.0); Mean Corpuscular Hemoglobin 32.4 pg (27.0-31.0); Mean Platelet Volume 8.4 fL (7.4-10.4); Platelet Count 244 thou/uL (130-400); RBC Distribution Width 12.1 % (11.5-14.5); Red Blood Cell (RBC) Count 3.59 mill/uL (4.70-6.10); White Blood Cell (WBC) Count 19.2 thou/uL (4.8-10.8)
[2019-08-17 04:12] LABS: Anion Gap 12 mmol/L (10-20); BUN (Urea Nitrogen) 34 mg/dL (8.4-25.7); Calc. Creatinine Clearance 78 mL/min (70-130); Calcium 7.8 mg/dL (7.8-10.44); Carbon Dioxide 19 mmol/L (23-31); Chloride 112 mmol/L (98-107); Estimated GFR-MDRD Greater than 90; Glucose 205 mg/dL (80-115); Sodium 138 mmol/L (136-145)
[2019-08-17] MEDS: fentaNYL Citrate/PF 2,000 MCG in Sodium Chloride 0.9% 60 ML IV SCH (06:33)
--- NOTE | 2019-08-17 07:26 | PDOC.HOSPP ---
- Subjective Encounter Date: 08/17/19 Encounter Time: 07:00 Subjective: no overnight events. this morning, alert, responds to voice by turning head. - Objective Vital Signs & Weight: Vital Signs (12 hours) Temp Pulse Resp BP Pulse Ox 08/17/19 06:00 11 L 08/17/19 04:00 99.5 F 11 L 08/17/19 03:48 62 137/73 08/17/19 02:00 11 L 08/17/19 01:38 61 16 98 08/17/19 01:35 60 154/71 H 08/17/19 00:00 98.5 F 12 08/16/19 22:53 60 137/65 08/16/19 22:00 10 L 08/16/19 20:27 127/67 08/16/19 20:00 99.3 F 16 08/16/19 19:35 62 10 L 97 Weight Admit Weight 128 lb 1.417 oz Weight 138 lb 0.15 oz Most Recent Monitor Data Heart Rate from ECG 62 NIBP 154/71 NIBP BP-Mean 98 Respiration from ECG 25 SpO2 96 I&O: 08/16/19 08/17/19 08/18/19 06:59 06:59 06:59 Intake Total 2179.0 2616.1 Output Total 1415 2170 Balance 764.0 446.1 Result Diagrams: 08/17/19 03:44 08/17/19 03:44 Additional Labs: Accuchecks 08/16/19 08/16/19 08/16/19 20:27 14:46 10:00 POC Glucose 164 H 113 H 184 H 08/16/19 06:57 POC Glucose 179 H Hospitalist ROS - Review of Systems ROS unobtainable: due to endotracheal tube - Medication Medications: Active Medications Generic Name Dose Route Start Last Admin Trade Name Freq PRN Reason Stop Dose Admin Acetaminophen 650 mg 08/06/19 21:43 08/10/19 01:43 Tylenol PO 650 mg Q4H PRN Administration Headache/Fever/Mild Pain (1-3) Albuterol/Ipratropium 3 ml 08/13/19 19:00 08/17/19 01:38 Duoneb NEB 3 ml [id number] JALYN Administration Amlodipine Besylate 5 mg 08/12/19 09:00 08/16/19 10:18 Norvasc PO 5 mg DAILY JALYN Administration Calcium Carbonate 1,000 mg 08/06/19 21:43 08/08/19 12:10 Tums PO 1,000 mg Q4H PRN Administration Heartburn or Indigestion Enoxaparin Sodium 30 mg 08/09/19 21:00 08/16/19 20:29 Lovenox SC 30 mg 0900,2100 JALYN Administration Famotidine 20 mg 08/09/19 21:00 08/16/19 20:27 Pepcid SLOW IVP 20 mg BID JALYN Administration Guaifenesin/Dextromethorphan 15 ml 08/06/19 21:43 08/11/19 08:34 Robitussin Dm PO 15 ml Q4H PRN Administration Cough Hydralazine HCl 10 mg 08/11/19 15:35 08/11/19 17:25 Apresoline SLOW IVP 10 mg Q4H PRN Administration SBP > 180 and HR < 70 Cefepime HCl 1 gm/ Sodium 100 mls @ 200 mls/hr 08/09/19 21:00 08/16/19 20:28 Chloride IVPB 100 mls 0900,2100 JALYN Administration Sodium Chloride 1,000 mls @ 50 mls/hr 08/13/19 09:24 08/16/19 20:29 Normal Saline 0.9% IV 1,000 mls .Q20H JALYN Administration Fentanyl Citrate 2,000 mcg/ 100 mls @ 0 mls/hr 08/13/19 20:38 08/17/19 06:33 Sodium Chloride IV 09/12/19 20:38 100 mls INF JALYN Administration Protocol Per Protocol Insulin Human Isoph/Insulin Regular 20 units 08/14/19 21:00 08/16/19 20:29 Humulin 70/30 SC 20 unit BID JALYN Administration Insulin Human Lispro 0 units 08/06/19 21:43 08/16/19 10:12 Humalog SC 3 unit .AGGRESSIVE SLIDING PRN Administration Aggressive Correctional Scale Insulin Human Lispro 0 units 08/06/19 21:43 08/08/19 01:17 Humalog SC 5 unit .BEDTIME SLIDING SC PRN Administration Bedtime Correctional Scale Lisinopril 10 mg 08/08/19 09:00 08/16/19 20:27 Zestril PO Not Given DAILY [facility] Loperamide HCl 2 mg 08/08/19 08:04 08/08/19 12:10 Imodium PO 2 mg PRN PRN Administration Diarrhea/Loose Stools Lorazepam 0.5 mg 08/11/19 15:28 08/13/19 20:35 Ativan SLOW IVP 0.5 mg Q6H PRN Administration Anxiety/Agitation Metformin HCl 850 mg 08/08/19 08:00 08/16/19 18:45 Glucophage PO 850 mg BID-WM JALYN Administration Methylprednisolone Sodium Succinate 40 mg 08/15/19 21:00 08/16/19 20:28 Solu-Medrol IVP 40 mg BID JALYN Administration Ondansetron HCl 4 mg 08/06/19 21:43 08/09/19 12:45 Zofran IVP 4 mg Q6H PRN Administration Nausea/Vomiting Propofol 0 mg 08/11/19 18:37 08/16/19 18:27 Diprivan IV 1,000 mg INF PRN Administration Sedation Protocol Sodium Chloride 10 ml 08/10/19 21:00 08/16/19 20:28 Flush - Normal Saline IVF 10 ml Q12HR JALYN Administration Sodium Chloride 10 ml 08/10/19 09:38 08/16/19 10:39 Flush - Normal Saline IVF 10 ml PRN PRN Administration Saline Flush Thiamine HCl 50 mg 08/08/19 09:00 08/16/19 20:28 Thiamine PO Not Given DAILY JALYN Vecuronium [place] 10 mg 08/14/19 09:54 08/14/19 23:45 Norcuron IV 10 mg Q2H PRN Administration Agitation - Exam General Appearance: NAD, awake alert Eye: PERRL Neck: no JVD Heart: RRR, no murmur, no gallops, no rubs Respiratory: no wheezes, no rales Respiratory - other findings: diffuse rhonchi Gastrointestinal: soft, non-tender, non-distended Extremities - other findings: LLE pitting edema midtibial level > RLE Hosp A/P - Plan #covid penumonia s/p remdesivir, IL-6, plasma CXR: improved compared to 08/10, no significant change in b/l pathcy opacities compared to 08/14 ventilated and sedated #HTN well controlled; continue current regimen #T2DM well controlled, continue current regimen
[2019-08-17] MEDS: Sodium Chloride 0.9% 1,000 ML IV SCH (07:45)
[2019-08-17] MEDS: Propofol 1,000 MG/100 ML VIAL IV PRN (08:19)
[2019-08-17] MEDS: Cefepime 1 GM in Sodium Chloride 0.9% 100 ML IVPB SCH ×2 (08:20→20:16)
[2019-08-17] MEDS: metFORMIN 850 MG TAB PO SCH ×2 (08:21→17:07)
[2019-08-17] MEDS: Famotidine/PF 20 mg/2ml Vial SLOW IVP SCH ×2 (08:21→20:17)
[2019-08-17] MEDS: Amlodipine 5 MG TAB PO SCH (08:21)
[2019-08-17] MEDS: methylPREDNISolone Sod Succ 40 MG VIAL IVP SCH ×2 (08:22→20:17)
[2019-08-17] MEDS: Thiamine 100 MG TAB PO SCH (08:22)
[2019-08-17] MEDS: Lisinopril 10 MG TAB PO SCH (08:22)
[2019-08-17] MEDS: Enoxaparin Sodium 30 MG/0.3 ML SYRINGE SC SCH ×2 (08:24→20:18)
[2019-08-17] MEDS: HumuLIN 70/30 (300 UNITS/3 ML VIAL) SC SCH ×2 (08:24→20:19)
--- NOTE | 2019-08-17 08:24 | RAD ---
PORTABLE CHEST: DATE: 08/17/2019. PROVIDED CLINICAL HISTORY: Respiratory insufficiency. FINDINGS: COMPARISON: 08/15/2019. Cardiac and mediastinal silhouette is unchanged in appearance. Support appara tus is similar in position. Persistent bilateral airspace disease. No definite pleural fluid or pne umothorax apparent. IMPRESSION: Similar radiographic appearance of the chest. POS: RITA
[2019-08-17] MEDS: HumaLOG 300 UNITS/3 ML VIAL SC PRN ×3 (08:38→17:27)
--- NOTE | 2019-08-17 20:50 | PRG ---
DATE OF SERVICE: 08/17/2019 OBJECTIVE: VITAL SIGNS: Heart rates in the 60s, blood pressure 140/63, respiratory rate is in the teens. GENERAL: He remains intubated. Remainder of his exam is unchanged. DIAGNOSTIC DATA: Chest x-ray shows diffuse infiltrates. IMPRESSION: COVID-19 pneumonia with respiratory failure. He has been treated treatment options. He has also been treated with empiric antimicrobial therapy. We will adjust his anticoagulants to a full-dose anticoagulation. We will continue with IV steroids. He is clinically stable Job ID: [id number]
[2019-08-18] MEDS: Sodium Chloride 0.9% 1,000 ML IV SCH (03:44)
[2019-08-18] MEDS: Propofol 1,000 MG/100 ML VIAL IV PRN ×2 (03:46→15:27)
[2019-08-18 04:21] LABS: Anion Gap 12 mmol/L (10-20); BUN (Urea Nitrogen) 33 mg/dL (8.4-25.7); Calc. Creatinine Clearance 79 mL/min (70-130); Calcium 7.9 mg/dL (7.8-10.44); Carbon Dioxide 23 mmol/L (23-31); Chloride 106 mmol/L (98-107); Estimated GFR-MDRD Greater than 90; Glucose 218 mg/dL (80-115); Potassium 4.8 mmol/L (3.5-5.1); Sodium 136 mmol/L (136-145)
[2019-08-18 04:34] LABS: Band 8 % (5-11); Hemoglobin 12.5 g/dL (14.0-18.0); Lymphocytes 3 % (21-51); MDiff Complete? YES; Mean Corpuscular HGB CONC 33.2 g/dL (32.0-36.0); Mean Corpuscular Hemoglobin 32.6 pg (27.0-31.0); Mean Corpuscular Volume 98.4 fL (78.0-98.0); Mean Platelet Volume 8.9 fL (7.4-10.4); Monocytes 1 % (0-10); Neutrophil 88 % (42-75); Platelet Count 257 thou/uL (130-400); Platelet Morphology Comment Appears Adequate; RBC Distribution Width 12.5 % (11.5-14.5); Red Blood Cell (RBC) Count 3.82 mill/uL (4.70-6.10); White Blood Cell (WBC) Count 22.4 thou/uL (4.8-10.8)
--- NOTE | 2019-08-18 07:58 | RAD ---
PORTABLE CHEST: DATE: 08/18/2019. PROVIDED CLINICAL HISTORY: Respiratory insufficiency. FINDINGS: Comparison 08/17/2019. Significant interval change with respect to the prior examination is not appare nt. IMPRESSION: As above. POS: RITA
[2019-08-18] MEDS: Enoxaparin Sodium 60 MG/0.6 ML SYRINGE SC SCH ×4 (08:18→20:43)
[2019-08-18] MEDS: methylPREDNISolone Sod Succ 40 MG VIAL IVP SCH ×2 (08:18→20:44)
[2019-08-18] MEDS: Famotidine/PF 20 mg/2ml Vial SLOW IVP SCH ×2 (08:18→20:43)
[2019-08-18] MEDS: Cefepime 1 GM in Sodium Chloride 0.9% 100 ML IVPB SCH ×2 (08:19→20:43)
[2019-08-18] MEDS: metFORMIN 850 MG TAB PO SCH ×2 (08:20→16:48)
[2019-08-18] MEDS: Lisinopril 10 MG TAB PO SCH (08:20)
[2019-08-18] MEDS: HumuLIN 70/30 (300 UNITS/3 ML VIAL) SC SCH ×2 (08:22→20:44)
[2019-08-18] MEDS: Thiamine 100 MG TAB PO SCH (08:22)
[2019-08-18] MEDS: Amlodipine 5 MG TAB PO SCH (08:24)
[2019-08-18] MEDS: fentaNYL Citrate/PF 2,000 MCG in Sodium Chloride 0.9% 60 ML IV SCH (09:08)
[2019-08-18] MEDS: HumaLOG 300 UNITS/3 ML VIAL SC PRN (11:11)
--- NOTE | 2019-08-18 14:30 | PRG ---
DATE OF SERVICE: 08/18/2019 SUBJECTIVE: Kayode Carlos still continues with very high tidal volumes mainly because of the negative inspiratory force he is generating. He appears to be clinically improving. OBJECTIVE: VITAL SIGNS: His heart rates is in the 70s, blood pressure 124/57, respiratory rates in the teens to low 20s. LUNGS: Unchanged. HEART: Unchanged. ABDOMEN: Unchanged. LABORATORY DATA: White count 22.4, hemoglobin 12.5, and platelets 257. Electrolytes are unremarkable. Blood gas; pH CO2 of 40, pO2 of 59. IMPRESSION: 1. COVID-19 pneumonia, respiratory failure. 2. Noncompliance with treatment options prior to intubation. Chest x-ray is reviewed and is essentially unchanged. We will continue ventilatory support. Start working him toward volume and pressure support ventilation. Critical care time 30 min. Job ID: [id number] MTDD
--- NOTE | 2019-08-18 15:20 | PDOC.EVN ---
Event Note - Event Note Event Note: did not physically encounter patient in order to avoid unnecessary exposure. Reviewed chart and notes. Match I/O, poorly controlled diabetes so increased humulin 70/30.
[2019-08-19] MEDS: Sodium Chloride 0.9% 1,000 ML IV SCH (01:02)
[2019-08-19 03:36] LABS: #Lymphocytes 0.5 thou/uL (1.20-3.40); #Monocytes 0.2 thou/uL (0.11-0.59); #Neutrophils 21.3 thou/uL (1.40-6.50); %Eosinophils 0.1 % (0.0-10.0); %Lymphocytes 2.1 % (21.0-51.0); %Monocytes 1.1 % (0.0-10.0); %Neutrophils 96.7 % (42.0-75.0); Hemoglobin 12.3 g/dL (14.0-18.0); Mean Corpuscular HGB CONC 33.8 g/dL (32.0-36.0); Mean Corpuscular Hemoglobin 33.2 pg (27.0-31.0); Mean Platelet Volume 8.8 fL (7.4-10.4); Platelet Count 242 thou/uL (130-400); RBC Distribution Width 12.7 % (11.5-14.5); Red Blood Cell (RBC) Count 3.72 mill/uL (4.70-6.10); White Blood Cell (WBC) Count 22.1 thou/uL (4.8-10.8)
[2019-08-19 04:05] LABS: Anion Gap 12 mmol/L (10-20); BUN (Urea Nitrogen) 28 mg/dL (8.4-25.7); Calc. Creatinine Clearance 93 mL/min (70-130); Calcium 8.1 mg/dL (7.8-10.44); Carbon Dioxide 25 mmol/L (23-31); Chloride 108 mmol/L (98-107); Estimated GFR-MDRD Greater than 90; Glucose 157 mg/dL (80-115); Potassium 4.7 mmol/L (3.5-5.1); Sodium 140 mmol/L (136-145)
[2019-08-19] MEDS: Propofol 1,000 MG/100 ML VIAL IV PRN ×2 (05:35→18:18)
[2019-08-19] MEDS: HumaLOG 300 UNITS/3 ML VIAL SC PRN (05:49)
--- NOTE | 2019-08-19 07:03 | PDOC.HOSPP ---
- Subjective Encounter Date: 08/19/19 Encounter Time: 06:30 Subjective: overnight, attempted SBTs but per nurse became agitated and tachycardic. this morning, sedated, minimal pressure support, RSBI ~ 25, satting high 90s on FIO2 40%, no overventilating. Considering high spontaneous TV, tachycardia and agitation likely result of anxiety/confusion rather than respiratory distress. - Objective Vital Signs & Weight: Vital Signs (12 hours) Temp Pulse Resp BP Pulse Ox 08/19/19 06:00 15 08/19/19 04:00 98 F 12 08/19/19 02:37 61 163/75 H 08/19/19 02:00 12 08/19/19 00:54 62 14 98 08/19/19 00:50 63 150/73 H 08/19/19 00:00 98.7 F 23 H 08/18/19 22:00 15 08/18/19 20:58 61 137/77 08/18/19 20:00 97.8 F 12 08/18/19 19:43 95 08/18/19 19:12 52 L 154/77 H 08/18/19 19:11 53 L 10 L 100 Weight Admit Weight 128 lb 1.417 oz Weight 136 lb 10.986 oz Most Recent Monitor Data Heart Rate from ECG 71 NIBP 131/77 NIBP BP-Mean 95 Respiration from ECG 19 SpO2 95 I&O: 08/17/19 08/18/19 08/19/19 06:59 06:59 06:59 Intake Total 2616.1 2794.8 2940.3 Output Total 2170 2280 3440 Balance 446.1 514.8 -499.7 Result Diagrams: 08/19/19 03:22 08/19/19 03:22 Additional Labs: Accuchecks 08/19/19 08/18/19 08/18/19 05:42 20:55 16:59 POC Glucose 185 H 200 H 125 H 08/18/19 08/15/19 10:58 16:10 POC Glucose 223 H 197 H Hospitalist ROS - Review of Systems ROS unobtainable: due to endotracheal tube - Medication Medications: Active Medications Generic Name Dose Route Start Last Admin Trade Name Freq PRN Reason Stop Dose Admin Acetaminophen 650 mg 08/06/19 21:43 08/10/19 01:43 Tylenol PO 650 mg Q4H PRN Administration Headache/Fever/Mild Pain (1-3) Albuterol/Ipratropium 3 ml 08/13/19 19:00 08/19/19 00:54 Duoneb NEB 3 ml [id number] JALYN Administration Amlodipine Besylate 5 mg 08/12/19 09:00 08/18/19 08:24 Norvasc PO 5 mg DAILY JALYN Administration Calcium Carbonate 1,000 mg 08/06/19 21:43 08/08/19 12:10 Tums PO 1,000 mg Q4H PRN Administration Heartburn or Indigestion Enoxaparin Sodium 60 mg 08/17/19 21:00 08/18/19 20:43 Lovenox SC 60 mg 09,2099 JALYN Administration Famotidine 20 mg 08/09/19 21:00 08/18/19 20:43 Pepcid SLOW IVP 20 mg BID JALYN Administration Guaifenesin/Dextromethorphan 15 ml 08/06/19 21:43 08/11/19 08:34 Robitussin Dm PO 15 ml Q4H PRN Administration Cough Hydralazine HCl 10 mg 08/11/19 15:35 08/11/19 17:25 Apresoline SLOW IVP 10 mg Q4H PRN Administration SBP > 180 and HR < 70 Cefepime HCl 1 gm/ Sodium 100 mls @ 200 mls/hr 08/09/19 21:00 08/18/19 20:43 Chloride IVPB 100 mls 09,2099 JALYN Administration Sodium Chloride 1,000 mls @ 50 mls/hr 08/13/19 09:24 08/19/19 01:02 Normal Saline 0.9% IV 1,000 mls .Q20H JALYN Administration Fentanyl Citrate 2,000 mcg/ 100 mls @ 0 mls/hr 08/13/19 20:38 08/18/19 09:08 Sodium Chloride IV 09/12/19 20:38 100 mls INF JALYN Administration Protocol Per Protocol Dexmedetomidine HCl 400 mcg/ 100 mls @ 0 mls/hr 08/18/19 13:45 08/19/19 05:42 Sodium Chloride IVPB 100 mls INF JALYN Administration Protocol Per Protocol Insulin Human Isoph/Insulin Regular 25 units 08/18/19 21:00 08/18/19 20:44 Humulin 70/30 SC 25 unit BID JALYN Administration Insulin Human Lispro 0 units 08/06/19 21:43 08/19/19 05:49 Humalog SC 3 unit .AGGRESSIVE SLIDING PRN Administration Aggressive Correctional Scale Insulin Human Lispro 0 units 08/06/19 21:43 08/08/19 01:17 Humalog SC 5 unit .BEDTIME SLIDING SC PRN Administration Bedtime Correctional Scale Lisinopril 10 mg 08/08/19 09:00 08/18/19 08:20 Zestril PO 10 mg DAILY JALYN Administration Loperamide HCl 2 mg 08/08/19 08:04 08/08/19 12:10 Imodium PO 2 mg PRN PRN Administration Diarrhea/Loose Stools Lorazepam 0.5 mg 08/11/19 15:28 08/13/19 20:35 Ativan SLOW IVP 0.5 mg Q6H PRN Administration Anxiety/Agitation Metformin HCl 850 mg 08/08/19 08:00 08/18/19 16:48 Glucophage PO 850 mg BID-WM JALYN Administration Methylprednisolone Sodium Succinate 40 mg 08/15/19 21:00 08/18/19 20:44 Solu-Medrol IVP 40 mg BID JALYN Administration Ondansetron HCl 4 mg 08/06/19 21:43 08/09/19 12:45 Zofran IVP 4 mg Q6H PRN Administration Nausea/Vomiting Propofol 0 mg 08/11/19 18:37 08/19/19 05:35 Diprivan IV 1,000 mg INF PRN Administration Sedation Protocol Sodium Chloride 10 ml 08/10/19 21:00 08/18/19 20:45 Flush - Normal Saline IVF 10 ml Q12HR JALYN Administration Sodium Chloride 10 ml 08/10/19 09:38 08/16/19 10:39 Flush - Normal Saline IVF 10 ml PRN PRN Administration Saline Flush Thiamine HCl 50 mg 08/08/19 09:00 08/18/19 08:22 Thiamine PO 50 mg DAILY JALYN Administration Vecuronium [place] 10 mg 08/14/19 09:54 08/14/19 23:45 Norcuron IV 10 mg Q2H PRN Administration Agitation - Exam General - other findings: intuabted and sedated Eye: PERRL Neck: no JVD Heart: RRR, no murmur, no gallops Respiratory: CTAB, no wheezes, no rales, no ronchi Gastrointestinal: soft, non-distended, normal bowel sounds Hosp A/P - Plan #covid penumonia s/p remdesivir, IL-6, plasma CXR (08/18): less rotated to right than yesterdays so comparison suboptimal but overall appears to be no signficant change continue SBTs/extubate as pe rPCCM #HTN increased lisinopril to 20mg daily #T2DM well controlled, continue current regimen ELOS: 3 nights
--- NOTE | 2019-08-19 07:52 | RAD ---
Chest one view HISTORY: Dyspnea. Intubated. Follow-up. COMPARISON: 08/18/2019. FINDINGS: Cardiac silhouette is magnified by projection. Pulmonary vasculature upper limits of normal . Mediastinum is midline with aortic calcification. Lines and tubes are unchanged in position. There has been gradual, subtle increase in parenchymal infiltrate projecting over the lateral aspect of the right upper lobe. Other patchy areas of ill-defined predominantly peripheral parenchymal infiltrate throughout each ronny g are otherwise stable. No evidence of pneumothorax. IMPRESSION : Subtle progression of right upper lobe component of otherwise stable prominent bilateral multifocal p arenchymal infiltrates.
[2019-08-19] MEDS: Thiamine 100 MG TAB PO SCH (08:33)
[2019-08-19] MEDS: Amlodipine 5 MG TAB PO SCH (08:34)
[2019-08-19] MEDS: Famotidine/PF 20 mg/2ml Vial SLOW IVP SCH ×2 (08:34→19:56)
[2019-08-19] MEDS: metFORMIN 850 MG TAB PO SCH ×2 (08:34→17:14)
[2019-08-19] MEDS: methylPREDNISolone Sod Succ 40 MG VIAL IVP SCH ×2 (08:35→19:56)
[2019-08-19] MEDS: Enoxaparin Sodium 60 MG/0.6 ML SYRINGE SC SCH ×2 (08:35→19:57)
[2019-08-19] MEDS: Cefepime 1 GM in Sodium Chloride 0.9% 100 ML IVPB SCH ×2 (08:35→19:56)
[2019-08-19] MEDS: HumuLIN 70/30 (300 UNITS/3 ML VIAL) SC SCH ×2 (08:37→19:57)
[2019-08-19] MEDS: Lisinopril 20 MG TAB PO SCH (08:42)
--- NOTE | 2019-08-19 11:48 | PRG ---
DATE OF SERVICE: 08/19/2019 SUBJECTIVE: Mr. Rogelio Carlos is clinically stable. OBJECTIVE: VITAL SIGNS: His heart rates in the 70s, blood pressure 132/48, his FiO2 is at 40%, gradually decreased his ventilatory support. LUNGS: Unchanged. HEART: Unchanged. ABDOMEN: Unchanged. LABORATORY DATA: White count 22, hemoglobin 12.3, and platelets 242. Electrolytes were unremarkable. IMPRESSION: Pneumonia with respiratory failure secondary to COVID-19. PLAN: Continue to slowly decrease his ventilatory support. His compliance post-extubation will be an issue as it was prior to intubation. Critical care time 30 min. Job ID: [id number] MTDD
[2019-08-19] MEDS: fentaNYL Citrate/PF 2,000 MCG in Sodium Chloride 0.9% 60 ML IV SCH (12:51)
--- NOTE | 2019-08-19 13:08 | PQF ---
CLINICAL DOCUMENTATION IMPROVEMENT CLARIFICATION FORM: ICD-10 Updated PLEASE DO AN ADDENDUM TO THE PROGRESS NOTE WITH ANY DOCUMENTATION UPDATES OR ADDITIONS AND CARRY THROUGH TO DC SUMMARY. THANK YOU. DATE: 08/19/2019 ATTN: Dr. Alvarez Please exercise your independent, professional judgment in responding to the clarification form. Clinical indicators are provided on the bottom of this form for your review Please check appropriate box(es): [ ] Sepsis due to: [ ] Severe sepsis with associated acute organ dysfunction: [ ] Acute Respiratory Failure [ ] Acute Kidney injury w/o ATN [ ] Encephalopathy (metabolic) (septic) [ ] Additional/Other: please specify: [x ] Localized infection without sepsis [ ] Other diagnosis [ ] Unable to determine In addition, please specify: Present on Admission (POA): [ ] Yes [ ] No [ ] Unable to determine For continuity of documentation, please document condition throughout progress notes and discharge summary. Thank You. CLINICAL INDICATORS - SIGNS / SYMPTOMS / LABS / RESULTS AND LOCATION IN MR H&P 08/05: VS: BP 118/74, pulse 94, resp. 20, temp. 101.2. sat 94% RA Lab: creatinine 1.8 78% neutrophils I/P: Likely coronavirus pneumonia. He will be on NS 100ml per hr for acute kidney injury with likely ckd, which we are unsure of at present 08/08 ([place]) White ct 19,000 X-ray shows a new right-sided infiltrate Assess: Respiratory failure, r lung pneumonia, coronavirus positive pneumonia 08/15([place]) General: He still remains encephalopathic and agitated. Respiratory failure 2/2 coronavirus positive pneumonia RISKS: H&P 08/05: Hx DM 2, HTN. I/P: Likely coronavirus pneumonia. TREATMENT: Order 08/05-08/12: NS IV 100mls/hr. ID Consult 08/08. Initiation of Remdesivir 08.08 ([place]) he is started on steroids, neb treatments, Zithromax, and Maxipime. 08/10 Order Resp: Vent Continuous Thank you, Subha (This form is maintained as a part of the permanent medical record) 2014 [employer]. All Rights Reserved Subha Tejada RN, BSN [email or web address] [employer] [facility]
[2019-08-19] MEDS: Lorazepam 2 MG/ML VIAL SLOW IVP PRN (19:57)
[2019-08-20] MEDS: Sodium Chloride 0.9% 1,000 ML IV SCH ×2 (03:07→14:24)
[2019-08-20 04:02] LABS: #Lymphocytes 0.3 thou/uL (1.20-3.40); #Monocytes 0.3 thou/uL (0.11-0.59); #Neutrophils 17.1 thou/uL (1.40-6.50); %Eosinophils 0.2 % (0.0-10.0); %Lymphocytes 1.9 % (21.0-51.0); %Monocytes 1.6 % (0.0-10.0); %Neutrophils 96.2 % (42.0-75.0); Hemoglobin 12.4 g/dL (14.0-18.0); Mean Corpuscular HGB CONC 34.1 g/dL (32.0-36.0); Mean Corpuscular Hemoglobin 33.4 pg (27.0-31.0); Mean Corpuscular Volume 97.8 fL (78.0-98.0); Mean Platelet Volume 9.1 fL (7.4-10.4); Platelet Count 232 thou/uL (130-400); RBC Distribution Width 12.9 % (11.5-14.5); Red Blood Cell (RBC) Count 3.72 mill/uL (4.70-6.10); White Blood Cell (WBC) Count 17.8 thou/uL (4.8-10.8)
[2019-08-20 04:11] LABS: Anion Gap 12 mmol/L (10-20); BUN (Urea Nitrogen) 24 mg/dL (8.4-25.7); Calc. Creatinine Clearance 90 mL/min (70-130); Carbon Dioxide 25 mmol/L (23-31); Chloride 106 mmol/L (98-107); Estimated GFR-MDRD Greater than 90; Glucose 141 mg/dL (80-115); Potassium 4.6 mmol/L (3.5-5.1); Sodium 138 mmol/L (136-145)
[2019-08-20] MEDS: Famotidine/PF 20 mg/2ml Vial SLOW IVP SCH ×2 (09:55→20:12)
[2019-08-20] MEDS: methylPREDNISolone Sod Succ 40 MG VIAL IVP SCH ×2 (09:56→20:13)
[2019-08-20] MEDS: Enoxaparin Sodium 60 MG/0.6 ML SYRINGE SC SCH ×2 (09:56→20:12)
[2019-08-20] MEDS: Thiamine 100 MG TAB PO SCH (09:57)
[2019-08-20] MEDS: Lisinopril 20 MG TAB PO SCH (09:57)
[2019-08-20] MEDS: metFORMIN 850 MG TAB PO SCH ×2 (09:57→19:22)
[2019-08-20] MEDS: Amlodipine 5 MG TAB PO SCH (09:57)
[2019-08-20] MEDS: HumuLIN 70/30 (300 UNITS/3 ML VIAL) SC SCH ×2 (09:58→20:10)
[2019-08-20] MEDS: Propofol 1,000 MG/100 ML VIAL IV PRN (13:00)
--- NOTE | 2019-08-20 16:24 | PRG ---
DATE OF SERVICE: 08/20/2019 SUBJECTIVE: Mr. Carlos remains mechanically ventilated. OBJECTIVE: VITAL SIGNS: Heart rates in the 130s when he gets agitated, blood pressures in 140s, respiratory rates in the 20s. Exam is otherwise unchanged. LABORATORY DATA: White count 17.8, hemoglobin 12.2, platelets 232. Electrolytes are normal. Creatinine is 0.6. IMPRESSION: Respiratory failure associated with COVID. Unfortunately, this patient's lack of compliance prior to intubation makes extubating him early possible. We will add Haldol today routinely to see if this leads to more cooperative behavior. There is no blood gas done since and given his normal electrolytes, there is no reason to suspect an acid-base disorder. His FiO2 is only 40%. cooperative, we might be able to consider extubation. CRITICAL CARE TIME: 30 minutes. Job ID: [id number]
[2019-08-20] MEDS: fentaNYL Citrate/PF 2,000 MCG in Sodium Chloride 0.9% 60 ML IV SCH (16:31)
[2019-08-20] MEDS: Haloperidol Lactate 5 MG/ML VIAL IM SCH ×2 (19:11→22:10)
--- NOTE | 2019-08-20 19:44 | PDOC.HOSPP ---
- Subjective Encounter Date: 08/20/19 Encounter Time: 09:00 Subjective: Remains intubated and sedated. Agitation during SBTs. - Objective Vital Signs & Weight: Vital Signs (12 hours) Temp Pulse Resp BP 08/20/19 18:00 23 H 08/20/19 16:00 98.9 F 25 H 08/20/19 14:48 128 H 08/20/19 14:00 27 H 08/20/19 12:00 99.8 F H 18 08/20/19 10:39 75 131/75 08/20/19 10:00 16 08/20/19 09:57 73 124/80 08/20/19 08:00 98.6 F 17 08/20/19 07:48 73 124/80 Weight Admit Weight 128 lb 1.417 oz Weight 138 lb 3.677 oz Most Recent Monitor Data Heart Rate from ECG 122 NIBP 113/59 NIBP BP-Mean 77 Respiration from ECG 25 SpO2 91 I&O: 08/19/19 08/20/19 08/21/19 06:59 06:59 06:59 Intake Total 2940.3 3185.2 1457.9 Output Total 3440 3225 1300 Balance -499.7 -39.8 157.9 Result Diagrams: 08/20/19 03:21 08/20/19 03:21 Additional Labs: Accuchecks 08/20/19 08/20/19 08/20/19 15:46 10:31 06:02 POC Glucose 81 162 H 131 H 08/19/19 08/19/19 20:07 17:26 POC Glucose 137 H 117 H Hospitalist ROS - Review of Systems ROS unobtainable: due to endotracheal tube - Medication Medications: Active Medications Generic Name Dose Route Start Last Admin Trade Name Freq PRN Reason Stop Dose Admin Acetaminophen 650 mg 08/06/19 21:43 08/10/19 01:43 Tylenol PO 650 mg Q4H PRN Administration Headache/Fever/Mild Pain (1-3) Albuterol/Ipratropium 3 ml 08/13/19 19:00 08/20/19 14:47 Duoneb NEB 3 ml [id number] JALYN Administration Amlodipine Besylate 5 mg 08/12/19 09:00 08/20/19 09:57 Norvasc PO 5 mg DAILY JALYN Administration Calcium Carbonate 1,000 mg 08/06/19 21:43 08/08/19 12:10 Tums PO 1,000 mg Q4H PRN Administration Heartburn or Indigestion Enoxaparin Sodium 60 mg 08/17/19 21:00 08/20/19 09:56 Lovenox SC 60 mg 0900,2100 JALYN Administration Famotidine 20 mg 08/09/19 21:00 08/20/19 09:55 Pepcid SLOW IVP 20 mg BID JALYN Administration Guaifenesin/Dextromethorphan 15 ml 08/06/19 21:43 08/11/19 08:34 Robitussin Dm PO 15 ml Q4H PRN Administration Cough Haloperidol Lactate 10 mg 08/20/19 16:00 08/20/19 19:11 Haldol IM 10 mg 0400,1000,1600,2200 JALYN Administration Hydralazine HCl 10 mg 08/11/19 15:35 08/11/19 17:25 Apresoline SLOW IVP 10 mg Q4H PRN Administration SBP > 180 and HR < 70 Sodium Chloride 1,000 mls @ 50 mls/hr 08/13/19 09:24 08/20/19 14:24 Normal Saline 0.9% IV 1,000 mls .Q20H JALYN Administration Fentanyl Citrate 2,000 mcg/ 100 mls @ 0 mls/hr 08/13/19 20:38 08/20/19 16:31 Sodium Chloride IV 09/12/19 20:38 100 mls INF JALYN Administration Protocol Per Protocol Dexmedetomidine HCl 400 mcg/ 100 mls @ 0 mls/hr 08/18/19 13:45 08/20/19 14:36 Sodium Chloride IVPB 100 mls INF JALYN Administration Protocol Per Protocol Insulin Human Isoph/Insulin Regular 25 units 08/18/19 21:00 08/20/19 09:58 Humulin 70/30 SC 25 unit BID JALYN Administration Insulin Human Lispro 0 units 08/06/19 21:43 08/19/19 05:49 Humalog SC 3 unit .AGGRESSIVE SLIDING PRN Administration Aggressive Correctional Scale Insulin Human Lispro 0 units 08/06/19 21:43 08/08/19 01:17 Humalog SC 5 unit .BEDTIME SLIDING SC PRN Administration Bedtime Correctional Scale Lisinopril 20 mg 08/19/19 09:00 08/20/19 09:57 Zestril PO 20 mg DAILY JALYN Administration Loperamide HCl 2 mg 08/08/19 08:04 08/08/19 12:10 Imodium PO 2 mg PRN PRN Administration Diarrhea/Loose Stools Lorazepam 0.5 mg 08/11/19 15:28 08/19/19 19:57 Ativan SLOW IVP 0.5 mg Q6H PRN Administration Anxiety/Agitation Metformin HCl 850 mg 08/08/19 08:00 08/20/19 19:22 Glucophage PO 850 mg BID-WM JALYN Administration Methylprednisolone Sodium Succinate 40 mg 08/15/19 21:00 08/20/19 09:56 Solu-Medrol IVP 40 mg BID JALYN Administration Ondansetron HCl 4 mg 08/06/19 21:43 08/09/19 12:45 Zofran IVP 4 mg Q6H PRN Administration Nausea/Vomiting Propofol 0 mg 08/11/19 18:37 08/20/19 13:00 Diprivan IV 1,000 mg INF PRN Administration Sedation Protocol Sodium Chloride 10 ml 08/10/19 21:00 08/20/19 09:56 Flush - Normal Saline IVF 10 ml Q12HR JALYN Administration Sodium Chloride 10 ml 08/10/19 09:38 08/16/19 10:39 Flush - Normal Saline IVF 10 ml PRN PRN Administration Saline Flush Thiamine HCl 50 mg 08/08/19 09:00 08/20/19 09:57 Thiamine PO 50 mg DAILY JALYN Administration Vecuronium [place] 10 mg 08/14/19 09:54 08/14/19 23:45 Norcuron IV 10 mg Q2H PRN Administration Agitation - Exam General - other findings: intubated and sedated Neck: no JVD Heart: RRR, no murmur, no gallops Respiratory: CTAB, no wheezes, no rales, no ronchi Respiratory - other findings: midly reduced breath sounds left anterior lower field Gastrointestinal: soft, non-distended Hosp A/P - Plan #covid penumonia s/p remdesivir, IL-6, plasma Agree with PCCM that there may be behavioral component contributing to failed SBTs. #HTN well controlled, continue current regimen #T2DM well controlled, continue current regimen ELOS: 3 nights
[2019-08-21] MEDS: Propofol 1,000 MG/100 ML VIAL IV PRN (02:00)
[2019-08-21] MEDS: Haloperidol Lactate 5 MG/ML VIAL IM SCH ×4 (03:37→23:02)
[2019-08-21 04:14] LABS: Anion Gap 12 mmol/L (10-20); BUN (Urea Nitrogen) 23 mg/dL (8.4-25.7); Calc. Creatinine Clearance 94 mL/min (70-130); Calcium 7.9 mg/dL (7.8-10.44); Carbon Dioxide 26 mmol/L (23-31); Chloride 106 mmol/L (98-107); Estimated GFR-MDRD Greater than 90; Potassium 4.2 mmol/L (3.5-5.1); Sodium 140 mmol/L (136-145)
[2019-08-21 04:18] LABS: Glucose 55 mg/dL (80-115)
[2019-08-21 04:33] LABS: Band 42 % (5-11); Hemoglobin 12.2 g/dL (14.0-18.0); Lymphocytes 1 % (21-51); MDiff Complete? YES; Mean Corpuscular HGB CONC 34.5 g/dL (32.0-36.0); Mean Corpuscular Hemoglobin 33.7 pg (27.0-31.0); Mean Corpuscular Volume 97.8 fL (78.0-98.0); Monocytes 2 % (0-10); Neutrophil 55 % (42-75); Platelet Count 228 thou/uL (130-400); RBC Distribution Width 13.1 % (11.5-14.5); Red Blood Cell (RBC) Count 3.63 mill/uL (4.70-6.10); White Blood Cell (WBC) Count 16.6 thou/uL (4.8-10.8)
[2019-08-21] MEDS: Sodium Chloride 0.9% 1,000 ML IV SCH ×2 (07:28→17:04)
[2019-08-21] MEDS: metFORMIN 850 MG TAB PO SCH ×2 (07:48→16:53)
[2019-08-21] MEDS: Amlodipine 5 MG TAB PO SCH (07:48)
[2019-08-21] MEDS: Enoxaparin Sodium 60 MG/0.6 ML SYRINGE SC SCH ×2 (07:48→22:20)
[2019-08-21] MEDS: Thiamine 100 MG TAB PO SCH (07:48)
[2019-08-21] MEDS: Famotidine/PF 20 mg/2ml Vial SLOW IVP SCH ×2 (07:49→22:20)
[2019-08-21] MEDS: methylPREDNISolone Sod Succ 40 MG VIAL IVP SCH ×2 (07:50→22:20)
[2019-08-21] MEDS: HumuLIN 70/30 (300 UNITS/3 ML VIAL) SC SCH ×2 (08:15→22:21)
[2019-08-21] MEDS: Lisinopril 20 MG TAB PO SCH (09:05)
--- NOTE | 2019-08-21 09:16 | PDOC.EVN ---
Event Note - Event Note Event Note: Did not physically encounter patient to avoid unnecessary exposure. Reviewed labs and imaging. Noted hypoglycemia so adjusted insulin regimen. In case of large fluctuations in blood glucose, may change current regimen to insulin drip. Remains agitated, mechanically ventilated, management per PCCM.
[2019-08-21] MEDS: fentaNYL Citrate/PF 2,000 MCG in Sodium Chloride 0.9% 60 ML IV SCH (15:38)
--- NOTE | 2019-08-21 16:11 | PRG ---
DATE OF SERVICE: 08/21/2019 SUBJECTIVE: Kayode Carlos continues to be mechanically ventilated. He was hypotensive last night, stopping the propofol helped. This was restarted this morning. I am recommended to discontinue propofol and place him on a Versed drip. Precedex really had made much of a difference. I have added Haldol. I am not convinced the fentanyl is making much of a difference, but this can continue for now. His gas exchange has not been a huge ongoing issue. His hemodynamics remained stable. OBJECTIVE: LUNGS: Unchanged. HEART: Unchanged. ABDOMEN: Unchanged. LABORATORY DATA: White count 16.6, hemoglobin 12.2, and platelets 228. Electrolytes are unremarkable. IMPRESSION: 1. COVID pneumonia. 2. Medical noncompliance prior to intubation. He will have to improve to a point where he can probably be extubated to a cannula before I would consider extubating him. If he is extubated prior to intubation, the nurse will have to be in the room with him all the time. CRITICAL CARE TIME: 30 minutes. Job ID: [id number]
[2019-08-21] MEDS: HumaLOG 300 UNITS/3 ML VIAL SC PRN (17:04)
[2019-08-22 03:51] LABS: #Lymphocytes 0.2 thou/uL (1.20-3.40); #Monocytes 0.2 thou/uL (0.11-0.59); #Neutrophils 13.3 thou/uL (1.40-6.50); %Eosinophils 0.1 % (0.0-10.0); %Lymphocytes 1.4 % (21.0-51.0); %Monocytes 1.4 % (0.0-10.0); %Neutrophils 97.1 % (42.0-75.0); Mean Corpuscular Hemoglobin 32.6 pg (27.0-31.0); Mean Corpuscular Volume 98.9 fL (78.0-98.0); Mean Platelet Volume 9.1 fL (7.4-10.4); Platelet Count 192 thou/uL (130-400); RBC Distribution Width 13.5 % (11.5-14.5); Red Blood Cell (RBC) Count 3.37 mill/uL (4.70-6.10); White Blood Cell (WBC) Count 13.7 thou/uL (4.8-10.8)
[2019-08-22 05:12] LABS: Anion Gap 10 mmol/L (10-20); BUN (Urea Nitrogen) 29 mg/dL (8.4-25.7); Calc. Creatinine Clearance 89 mL/min (70-130); Calcium 7.7 mg/dL (7.8-10.44); Carbon Dioxide 26 mmol/L (23-31); Chloride 105 mmol/L (98-107); Estimated GFR-MDRD Greater than 90; Glucose 198 mg/dL (80-115); Potassium 4.3 mmol/L (3.5-5.1); Sodium 137 mmol/L (136-145)
[2019-08-22] MEDS: Sodium Chloride 0.9% 1,000 ML IV SCH (05:38)
[2019-08-22] MEDS: Haloperidol Lactate 5 MG/ML VIAL IM SCH ×4 (06:10→21:02)
--- NOTE | 2019-08-22 08:18 | PDOC.HOSPP ---
- Subjective Encounter Date: 08/22/19 Encounter Time: 08:00 Subjective: per nurse, remains agitated when attempting to wean off ventilation. this morning, intubated and sedated. - Objective Vital Signs & Weight: Vital Signs (12 hours) Temp Pulse Resp BP 08/22/19 07:55 70 119/63 08/22/19 06:00 12 08/22/19 04:00 99 F 18 08/22/19 02:12 124 H 156/91 H 08/22/19 02:00 14 08/22/19 00:16 88 113/56 L 08/22/19 00:00 98.4 F 16 08/21/19 22:00 16 08/21/19 21:40 81 96/50 L Weight Admit Weight 128 lb 1.417 oz Weight 2.138 oz Most Recent Monitor Data Heart Rate from ECG 71 NIBP 105/55 NIBP BP-Mean 71 Respiration from ECG 20 SpO2 99 I&O: 08/21/19 08/22/19 08/23/19 06:59 06:59 06:59 Intake Total 2694.0 2634 Output Total 2595 1985 Balance 99.0 649 Result Diagrams: 08/22/19 03:41 08/22/19 03:41 Additional Labs: Accuchecks 08/22/19 08/21/19 08/21/19 04:14 22:36 15:50 POC Glucose 172 H 176 H 157 H 08/21/19 08:09 POC Glucose 90 Hospitalist ROS - Review of Systems ROS unobtainable: due to endotracheal tube - Medication Medications: Active Medications Generic Name Dose Route Start Last Admin Trade Name Ehsanq PRN Reason Stop Dose Admin Acetaminophen 650 mg 08/06/19 21:43 08/10/19 01:43 Tylenol PO 650 mg Q4H PRN Administration Headache/Fever/Mild Pain (1-3) Albuterol/Ipratropium 3 ml 08/13/19 19:00 08/22/19 07:32 Duoneb NEB 3 ml [id number] JALYN Administration Amlodipine Besylate 5 mg 08/12/19 09:00 08/21/19 07:48 Norvasc PO 5 mg DAILY JALYN Administration Calcium Carbonate 1,000 mg 08/06/19 21:43 08/08/19 12:10 Tums PO 1,000 mg Q4H PRN Administration Heartburn or Indigestion Enoxaparin Sodium 60 mg 08/17/19 21:00 08/21/19 22:20 Lovenox SC 60 mg 0900,2100 JALYN Administration Famotidine 20 mg 08/09/19 21:00 08/21/19 22:20 Pepcid SLOW IVP 20 mg BID JALYN Administration Guaifenesin/Dextromethorphan 15 ml 08/06/19 21:43 08/11/19 08:34 Robitussin Dm PO 15 ml Q4H PRN Administration Cough Haloperidol Lactate 10 mg 08/20/19 16:00 08/22/19 06:10 Haldol IM Not Given 0400,1000,1600,2200 JALYN Hydralazine HCl 10 mg 08/11/19 15:35 08/11/19 17:25 Apresoline SLOW IVP 10 mg Q4H PRN Administration SBP > 180 and HR < 70 Sodium Chloride 1,000 mls @ 50 mls/hr 08/13/19 09:24 08/22/19 05:38 Normal Saline 0.9% IV 1,000 mls .Q20H JALYN Administration Fentanyl Citrate 2,000 mcg/ 100 mls @ 0 mls/hr 08/13/19 20:38 08/21/19 15:38 Sodium Chloride IV 09/12/19 20:38 100 mls INF JALYN Administration Protocol Per Protocol Midazolam HCl 100 mls @ 0 mls/hr 08/21/19 08:30 08/22/19 06:39 Versed IVPB 100 mls INF JALYN Administration Protocol Titrate Insulin Human Isoph/Insulin Regular 20 units 08/21/19 21:00 08/21/19 22:21 Humulin 70/30 SC 20 unit BID JALYN Administration Insulin Human Lispro 0 units 08/06/19 21:43 08/08/19 01:17 Humalog SC 5 unit .BEDTIME SLIDING SC PRN Administration Bedtime Correctional Scale Insulin Human Lispro 0 units 08/21/19 09:13 08/21/19 17:04 Humalog SC 2 unit .MILD SLIDING SCALE PRN Administration Mild Correctional Scale Lisinopril 20 mg 08/19/19 09:00 08/21/19 09:05 Zestril PO 20 mg DAILY JALYN Administration Loperamide HCl 2 mg 08/08/19 08:04 08/08/19 12:10 Imodium PO 2 mg PRN PRN Administration Diarrhea/Loose Stools Metformin HCl 850 mg 08/08/19 08:00 08/21/19 16:53 Glucophage PO 850 mg BID-WM JALYN Administration Methylprednisolone Sodium Succinate 40 mg 08/15/19 21:00 08/21/19 22:20 Solu-Medrol IVP 40 mg BID JALYN Administration Ondansetron HCl 4 mg 08/06/19 21:43 08/09/19 12:45 Zofran IVP 4 mg Q6H PRN Administration Nausea/Vomiting Sodium Chloride 10 ml 08/10/19 21:00 08/21/19 23:02 Flush - Normal Saline IVF 10 ml Q12HR JALYN Administration Sodium Chloride 10 ml 08/10/19 09:38 08/16/19 10:39 Flush - Normal Saline IVF 10 ml PRN PRN Administration Saline Flush Thiamine HCl 50 mg 08/08/19 09:00 08/21/19 07:48 Thiamine PO 50 mg DAILY JALYN Administration Vecuronium [place] 10 mg 08/14/19 09:54 08/14/19 23:45 Norcuron IV 10 mg Q2H PRN Administration Agitation - Exam General - other findings: intubated, sedate Eye: PERRL Neck: no JVD Heart: RRR, no murmur, no gallops, no rubs Respiratory: CTAB, no wheezes, no rales, no ronchi Gastrointestinal: soft, non-distended, normal bowel sounds Extremities: no edema Hosp A/P - Plan #covid penumonia s/p remdesivir, IL-6, plasma agree with PCCM that there may be behavioral component contributing to failed SBTs; versed added #HTN well controlled, continue current regimen #T2DM well controlled, continue current regimen ELOS: 3 nights
[2019-08-22] MEDS: Enoxaparin Sodium 60 MG/0.6 ML SYRINGE SC SCH ×2 (08:21→20:22)
[2019-08-22] MEDS: Famotidine/PF 20 mg/2ml Vial SLOW IVP SCH ×2 (08:22→20:22)
[2019-08-22] MEDS: methylPREDNISolone Sod Succ 40 MG VIAL IVP SCH ×2 (08:22→20:22)
[2019-08-22] MEDS: Lisinopril 20 MG TAB PO SCH (08:23)
[2019-08-22] MEDS: Thiamine 100 MG TAB PO SCH (08:23)
[2019-08-22] MEDS: Amlodipine 5 MG TAB PO SCH (08:24)
[2019-08-22] MEDS: metFORMIN 850 MG TAB PO SCH ×2 (08:24→15:50)
[2019-08-22] MEDS: HumuLIN 70/30 (300 UNITS/3 ML VIAL) SC SCH ×2 (08:25→20:19)
[2019-08-22] MEDS: HumaLOG 300 UNITS/3 ML VIAL SC PRN (09:00)
[2019-08-22] MEDS: fentaNYL Citrate/PF 2,000 MCG in Sodium Chloride 0.9% 60 ML IV SCH (18:26)
--- NOTE | 2019-08-22 23:35 | PRG ---
DATE OF SERVICE: 08/22/2019 SUBJECTIVE: He is clinically stable. OBJECTIVE: VITAL SIGNS: Blood pressure 152/73, heart rate 113, and respiratory rate 22. GENERAL: He is not sedated, very agitated, tachypneic. LUNGS: Unchanged. HEART: Unchanged. ABDOMEN: Unchanged. LABORATORY DATA: White count 13.7, hemoglobin 11.0, and platelets 192. Electrolytes are unremarkable. A pH, CO2, and then PO2 had been done since the 1st. IMPRESSION: COVID-19 pneumonia, slowly improving. He is stable for now. Because of his medical noncompliance prior to intubation, he can be extubated until he is totally compliant or on minimal ventilatory support. We will continue supportive care. CRITICAL CARE TIME: 30 minutes. Job ID: [id number]
[2019-08-23 03:32] LABS: #Lymphocytes 0.3 thou/uL (1.20-3.40); #Monocytes 0.3 thou/uL (0.11-0.59); #Neutrophils 13.9 thou/uL (1.40-6.50); %Eosinophils 0.1 % (0.0-10.0); %Lymphocytes 1.8 % (21.0-51.0); %Monocytes 2.2 % (0.0-10.0); %Neutrophils 95.9 % (42.0-75.0); Hemoglobin 10.7 g/dL (14.0-18.0); Mean Corpuscular HGB CONC 33.4 g/dL (32.0-36.0); Mean Corpuscular Hemoglobin 32.9 pg (27.0-31.0); Mean Corpuscular Volume 98.6 fL (78.0-98.0); Mean Platelet Volume 8.9 fL (7.4-10.4); Platelet Count 201 thou/uL (130-400); RBC Distribution Width 13.3 % (11.5-14.5); Red Blood Cell (RBC) Count 3.24 mill/uL (4.70-6.10); White Blood Cell (WBC) Count 14.5 thou/uL (4.8-10.8)
[2019-08-23 03:57] LABS: Anion Gap 9 mmol/L (10-20); BUN (Urea Nitrogen) 29 mg/dL (8.4-25.7); Calc. Creatinine Clearance 0 mL/min (70-130); Calcium 7.7 mg/dL (7.8-10.44); Carbon Dioxide 28 mmol/L (23-31); Chloride 106 mmol/L (98-107); Estimated GFR-MDRD Greater than 90; Glucose 259 mg/dL (80-115); Potassium 4.5 mmol/L (3.5-5.1); Sodium 138 mmol/L (136-145)
[2019-08-23] MEDS: HumaLOG 300 UNITS/3 ML VIAL SC PRN (04:13)
[2019-08-23] MEDS: Haloperidol Lactate 5 MG/ML VIAL IM SCH ×4 (05:39→20:16)
[2019-08-23] MEDS: Sodium Chloride 0.9% 1,000 ML IV SCH ×2 (05:45→20:18)
--- NOTE | 2019-08-23 08:10 | PDOC.EVN ---
Event Note - Event Note Event Note: No overnight events. Did not have physical encounter to avoid unnecessary exposure. This morning, agitated on breathing trial per nurse despite proper spontaneous volumes. Ventilation per PCCM. Blood glucose labile, changed to insulin drip. Blood pressure borderline low, so held antiHTN.
[2019-08-23] MEDS ORDERED: HUMULIN R 100 UNITS in Sodium Chloride 0.9% 100 ML IVPB SCH (08:15)
[2019-08-23] MEDS: methylPREDNISolone Sod Succ 40 MG VIAL IVP SCH ×2 (08:53→20:15)
[2019-08-23] MEDS: Famotidine/PF 20 mg/2ml Vial SLOW IVP SCH ×2 (08:53→20:15)
[2019-08-23] MEDS: Enoxaparin Sodium 60 MG/0.6 ML SYRINGE SC SCH ×2 (08:53→20:15)
[2019-08-23] MEDS: Thiamine 100 MG TAB PO SCH (08:55)
--- NOTE | 2019-08-23 09:16 | RAD ---
CHEST 1 VIEW: Date: 08/23/2019 COMPARISON: 08/19/2019. FINDINGS: Stable endotracheal and nasogastric tube. Stable cardiac silhouette. Stable bilateral effusion and pa renchymal changes. IMPRESSION: No significant interval change. POS: [facility]
--- NOTE | 2019-08-23 12:12 | PRG ---
DATE OF SERVICE: 08/23/2019 SUBJECTIVE: Mr. Rogelio Carlos is clinically stable. OBJECTIVE: VITAL SIGNS: Heart rate 116, blood pressure 172/97, respiratory rates in the teens, FiO2 is 40%, oximetry is in mid-to-high 90s. LUNGS: Unchanged. HEART: Unchanged. ABDOMEN: Unchanged. LABORATORY DATA: White count 14.5, hemoglobin 10.7, platelets 201,000. Sodium 138, potassium 4.5, chloride 106, bicarb 28, BUN 29, and creatinine 0.66. IMPRESSION: 1. Respiratory failure with COVID-19 pneumonia. 2. Medical noncompliance prior to intubation. As noted before, he will need to be almost on room air in my opinion prior to considering a candidate for extubation. Chest x-ray today is unchanged. 3. Probably, no reason to continue doing daily lab on him. Lab work can be less frequent after this weekend in my opinion. He will continue to be sedated. 4. We will continue with Haldol intramuscularly, but hopefully he will be more cooperative and we do get to a point where we can consider weaning and extubation. CRITICAL CARE TIME: 30 minutes. Job ID: [id number]
[2019-08-23] MEDS: metFORMIN 850 MG TAB PO SCH (20:18)
[2019-08-23] MEDS: fentaNYL Citrate/PF 2,000 MCG in Sodium Chloride 0.9% 60 ML IV SCH (21:30)
[2019-08-24] MEDS: Haloperidol Lactate 5 MG/ML VIAL IM SCH (04:30)
[2019-08-24 04:39] LABS: Anion Gap 10 mmol/L (10-20); BUN (Urea Nitrogen) 30 mg/dL (8.4-25.7); Calc. Creatinine Clearance 92 mL/min (70-130); Calcium 7.9 mg/dL (7.8-10.44); Carbon Dioxide 26 mmol/L (23-31); Chloride 108 mmol/L (98-107); Estimated GFR-MDRD Greater than 90; Glucose 147 mg/dL (80-115); Potassium 4.7 mmol/L (3.5-5.1); Sodium 139 mmol/L (136-145)
[2019-08-24 04:46] LABS: Band 6 % (5-11); Hemoglobin 10.5 g/dL (14.0-18.0); Hypochromia SLIGHT = 6-15 cells (100X) (0-5/hpf); MDiff Complete? YES; Mean Corpuscular HGB CONC 33.3 g/dL (32.0-36.0); Mean Corpuscular Hemoglobin 33.3 pg (27.0-31.0); Mean Corpuscular Volume 99.9 fL (78.0-98.0); Metamyelocyte 1 % (0-0); Monocytes 5 % (0-10); Neutrophil 88 % (42-75); Platelet Count 191 thou/uL (130-400); Platelet Morphology Comment Appears Adequate; RBC Distribution Width 13.6 % (11.5-14.5); Red Blood Cell (RBC) Count 3.16 mill/uL (4.70-6.10)
[2019-08-24] MEDS ORDERED: HumaLOG 300 UNITS/3 ML VIAL SC PRN (07:11)
--- NOTE | 2019-08-24 07:20 | PDOC.HOSPP ---
- Subjective Encounter Date: 08/24/19 Encounter Time: 08:00 Subjective: no overnight events. Remains intuabted and sedated. Blood glucose less labile so discontinued insulin drip to reduce exposure. - Objective Vital Signs & Weight: Vital Signs (12 hours) Temp Pulse Resp BP Pulse Ox 08/24/19 06:00 12 08/24/19 04:00 98.0 F 11 L 08/24/19 03:13 61 120/66 08/24/19 01:02 68 13 96 08/24/19 00:00 98.1 F 12 08/23/19 22:29 58 L 127/66 08/23/19 22:00 12 08/23/19 20:00 97.6 F 10 L 95 Weight Admit Weight 128 lb 1.417 oz Weight 2.176 oz Most Recent Monitor Data Heart Rate from ECG 66 NIBP 119/67 NIBP BP-Mean 84 Respiration from ECG 12 SpO2 96 I&O: 08/23/19 08/24/19 08/25/19 06:59 06:59 06:59 Intake Total 1842.5 2670.8 Output Total 1830 1684 Balance 12.5 986.8 Result Diagrams: 08/24/19 03:58 08/24/19 03:58 Additional Labs: Accuchecks 08/24/19 08/23/19 08/23/19 00:22 23:17 22:22 POC Glucose 167 H 127 H 128 H 08/23/19 08/23/19 08/23/19 21:04 19:11 17:49 POC Glucose 129 H 158 H 158 H 08/23/19 08/23/19 08/23/19 16:47 15:42 14:45 POC Glucose 151 H 109 151 H 08/23/19 08/23/19 08/23/19 13:44 12:39 11:43 POC Glucose 165 H 187 H 192 H 08/23/19 08/23/19 10:50 09:45 POC Glucose 214 H 229 H Hospitalist ROS - Review of Systems ROS unobtainable: due to endotracheal tube - Medication Medications: Active Medications Generic Name Dose Route Start Last Admin Trade Name Freq PRN Reason Stop Dose Admin Acetaminophen 650 mg 08/06/19 21:43 08/10/19 01:43 Tylenol PO 650 mg Q4H PRN Administration Headache/Fever/Mild Pain (1-3) Albuterol/Ipratropium 3 ml 08/13/19 19:00 08/24/19 01:02 Duoneb NEB 3 ml [id number] JALYN Administration Calcium Carbonate 1,000 mg 08/06/19 21:43 08/08/19 12:10 Tums PO 1,000 mg Q4H PRN Administration Heartburn or Indigestion Enoxaparin Sodium 60 mg 08/17/19 21:00 08/23/19 20:15 Lovenox SC 60 mg 0900,2100 JALYN Administration Famotidine 20 mg 08/09/19 21:00 08/23/19 20:15 Pepcid SLOW IVP 20 mg BID JALYN Administration Guaifenesin/Dextromethorphan 15 ml 08/06/19 21:43 08/11/19 08:34 Robitussin Dm PO 15 ml Q4H PRN Administration Cough Haloperidol Lactate 10 mg 08/20/19 16:00 08/24/19 04:30 Haldol IM 10 mg 0400,1000,1600,2200 JALYN Administration Hydralazine HCl 10 mg 08/11/19 15:35 08/11/19 17:25 Apresoline SLOW IVP 10 mg Q4H PRN Administration SBP > 180 and HR < 70 Sodium Chloride 1,000 mls @ 50 mls/hr 08/13/19 09:24 08/23/19 20:18 Normal Saline 0.9% IV 1,000 mls .Q20H JALYN Administration Midazolam HCl 100 mls @ 0 mls/hr 08/21/19 08:30 08/24/19 01:47 Versed IVPB 100 mls INF JALYN Administration Protocol Titrate Fentanyl Citrate 2,000 mcg/ 100 mls @ 0 mls/hr 08/23/19 21:30 08/23/19 21:30 Sodium Chloride IV 09/22/19 21:31 100 mls INF JALYN Administration Protocol Per Protocol Loperamide HCl 2 mg 08/08/19 08:04 08/08/19 12:10 Imodium PO 2 mg PRN PRN Administration Diarrhea/Loose Stools Methylprednisolone Sodium Succinate 40 mg 08/15/19 21:00 08/23/19 20:15 Solu-Medrol IVP 40 mg BID JALYN Administration Ondansetron HCl 4 mg 08/06/19 21:43 08/09/19 12:45 Zofran IVP 4 mg Q6H PRN Administration Nausea/Vomiting Sodium Chloride 10 ml 08/10/19 21:00 08/23/19 20:16 Flush - Normal Saline IVF 10 ml Q12HR JALYN Administration Sodium Chloride 10 ml 08/10/19 09:38 08/16/19 10:39 Flush - Normal Saline IVF 10 ml PRN PRN Administration Saline Flush Thiamine HCl 50 mg 08/08/19 09:00 08/23/19 08:55 Thiamine PO 50 mg DAILY JALYN Administration Vecuronium [place] 10 mg 08/14/19 09:54 08/14/19 23:45 Norcuron IV 10 mg Q2H PRN Administration Agitation - Exam General - other findings: intubated sedated Eye: PERRL ENT: normocephalic atraumatic, moist mucosa Heart: RRR, no murmur, no gallops, no rubs Respiratory: CTAB, no wheezes, no rales, no ronchi Gastrointestinal: soft, non-distended, normal bowel sounds Extremities: no edema Hosp A/P - Plan #covid penumonia s/p remdesivir, IL-6, plasma Failed SBTs, continue to try and extubate as per PCCM #HTN well controlled, continue current regimen #T2DM well controlled, took off insulin drip and restarted steroids so requires follow up ELOS: 3 nights
[2019-08-24 07:39] LABS: Actual Bicarbonate (HCO3a) 20.2 mEq/L (22-28); Base Excess (BEa) -4.7 mEq/L (-2.0 to +3.0); CO2 Tension 36.7 mmHg (35.0-45.0); Calcium, Ionized (arterial) 1.26 mmol/L (1.12-1.30); Carboxyhemoglobin (COHb) 0.6 gm% (0.0-3.0); Hemoglobin (Hb) 11.7 g/dL (14.0-18.0); O2 Tension (PaO2), arterial 64.7 mmHg (> 80.0); Potassium - ABG Lab 4.57 mmol/L (3.70-5.30); pH, Arterial 7.36 (7.35-7.45)
[2019-08-24] MEDS: Enoxaparin Sodium 60 MG/0.6 ML SYRINGE SC SCH ×2 (08:49→20:49)
[2019-08-24] MEDS: Thiamine 100 MG TAB PO SCH (08:49)
[2019-08-24] MEDS: methylPREDNISolone Sod Succ 40 MG VIAL IVP SCH ×2 (08:49→20:50)
[2019-08-24] MEDS: Famotidine/PF 20 mg/2ml Vial SLOW IVP SCH ×2 (08:50→20:49)
[2019-08-24 08:56] LABS: ALV-art Gradient 174.625 (0-20); Puncture Site RB
--- NOTE | 2019-08-24 11:27 | PRG ---
DATE OF SERVICE: 08/24/2019 TIME SPENT: 35 minutes Critical Care time. SUBJECTIVE: The patient remains intubated on mechanical ventilation for COVID-19 pneumonia. I find him sedated to the point where he is comatose. OBJECTIVE: VITAL SIGNS: Temperature 99.1, pulse 92, blood pressure 113/61, O2 saturation 94%. Intake 2700, output 1684. HEENT: Unremarkable. NECK: No JVD. CHEST: Fairly clear anteriorly. CARDIAC: S1 and S2. Regular. ABDOMEN: Soft. EXTREMITIES: No edema. LABORATORY DATA: ABG; pH 7.36, pCO2 of 36, pO2 of 64 on SIMV rate 6, tidal volume 600, PEEP 5, pressure support 13. His FiO2 was at 60%, not 40% as recorded in the notes. White blood cell count 9, hematocrit 31.6, platelet count 191. D-dimer is 2.29, down from 11.6. Sodium 139, potassium 4.7, chloride 108, CO2 of 26, BUN 30, creatinine 0.6, glucose 147. C-reactive protein 2. X-ray shows no acute changes. ASSESSMENT: COVID-19 pneumonia with acute respiratory failure requiring mechanical ventilation. This patient has had substantial improvement in his oxygenation over the last several days. The main issue now is he is excessively sedated to the point where we cannot proceed with any reasonable weaning measures. PLAN: 1. Stop Haldol. 2. Decrease Versed. 3. Stop insulin drip and use sliding scale insulin. 4. Continue IV methylprednisolone. Job ID: [id number]
[2019-08-24] MEDS: HumaLOG 300 UNITS/3 ML VIAL SC PRN ×2 (11:36→16:08)
[2019-08-24] MEDS: Insulin Glargine 20 UNITS in Pre-Filled Syringe 1 EACH SC SCH (11:39)
[2019-08-24] MEDS: fentaNYL Citrate/PF 2,000 MCG in Sodium Chloride 0.9% 60 ML IV SCH (13:55)
[2019-08-24] MEDS: Sodium Chloride 0.9% 1,000 ML IV SCH (17:21)
[2019-08-25] MEDS: Lorazepam 2 MG/ML VIAL SLOW IVP PRN ×5 (01:14→22:25)
[2019-08-25] MEDS: fentaNYL Citrate/PF 2,000 MCG in Sodium Chloride 0.9% 60 ML IV SCH ×2 (01:16→15:40)
[2019-08-25] MEDS: HumaLOG 300 UNITS/3 ML VIAL SC PRN ×3 (03:45→23:05)
[2019-08-25 04:16] LABS: #Lymphocytes 0.2 thou/uL (1.20-3.40); #Monocytes 0.3 thou/uL (0.11-0.59); #Neutrophils 13.4 thou/uL (1.40-6.50); %Basophils 0.2 % (0.0-1.0); %Lymphocytes 1.2 % (21.0-51.0); %Monocytes 2.3 % (0.0-10.0); %Neutrophils 96.3 % (42.0-75.0); Hemoglobin 10.9 g/dL (14.0-18.0); Mean Corpuscular HGB CONC 33.8 g/dL (32.0-36.0); Mean Corpuscular Hemoglobin 33.9 pg (27.0-31.0); Mean Platelet Volume 9.2 fL (7.4-10.4); Platelet Count 193 thou/uL (130-400); RBC Distribution Width 13.7 % (11.5-14.5); Red Blood Cell (RBC) Count 3.22 mill/uL (4.70-6.10); White Blood Cell (WBC) Count 13.9 thou/uL (4.8-10.8)
[2019-08-25 04:34] LABS: Anion Gap 9 mmol/L (10-20); BUN (Urea Nitrogen) 33 mg/dL (8.4-25.7); Calc. Creatinine Clearance 0 mL/min (70-130); Calcium 7.9 mg/dL (7.8-10.44); Carbon Dioxide 28 mmol/L (23-31); Chloride 106 mmol/L (98-107); Estimated GFR-MDRD Greater than 90; Glucose 270 mg/dL (80-115); Sodium 138 mmol/L (136-145)
[2019-08-25] MEDS: Sodium Chloride 0.9% 1,000 ML IV SCH ×3 (05:15→20:11)
[2019-08-25 07:46] LABS: Actual Bicarbonate (HCO3a) 25.1 mEq/L (22-28); Base Excess (BEa) -1.1 mEq/L (-2.0 to +3.0); CO2 Tension 48.9 mmHg (35.0-45.0); Calcium, Ionized (arterial) 1.18 mmol/L (1.12-1.30); Carboxyhemoglobin (COHb) 0.3 gm% (0.0-3.0); Hemoglobin (Hb) 10.4 g/dL (14.0-18.0); O2 Tension (PaO2), arterial 74.2 mmHg (> 80.0); Potassium - ABG Lab 4.71 mmol/L (3.70-5.30); pH, Arterial 7.33 (7.35-7.45)
[2019-08-25 07:55] LABS: Puncture Site RB
[2019-08-25 07:56] LABS: ALV-art Gradient 292.475 (0-20)
[2019-08-25] MEDS: Enoxaparin Sodium 60 MG/0.6 ML SYRINGE SC SCH ×2 (08:08→20:08)
[2019-08-25] MEDS: Famotidine/PF 20 mg/2ml Vial SLOW IVP SCH ×2 (08:09→20:08)
[2019-08-25] MEDS: Insulin Glargine 20 UNITS in Pre-Filled Syringe 1 EACH SC SCH (08:09)
[2019-08-25] MEDS: methylPREDNISolone Sod Succ 40 MG VIAL IVP SCH ×2 (08:09→20:09)
[2019-08-25] MEDS: Thiamine 100 MG TAB PO SCH (08:09)
--- NOTE | 2019-08-25 09:12 | PDOC.HOSPP ---
- Subjective Encounter Date: 08/25/19 (f/u COVID pneumonia) Encounter Time: 09:10 Subjective: Discussed with nurse - on overnight events. Remains intubated and sedated - has been intubated since August 10. - Objective Vital Signs & Weight: Vital Signs (12 hours) Temp Pulse Resp BP Pulse Ox 08/25/19 08:00 98.3 F 8 L 08/25/19 06:47 80 93/56 L 08/25/19 06:46 89 17 98 08/25/19 06:00 8 L 08/25/19 04:00 98.6 F 11 L 96 08/25/19 02:53 101 H 132/66 08/25/19 02:00 25 H 08/25/19 00:32 68 10 L 100 08/25/19 00:00 98.8 F 12 08/24/19 22:54 66 119/57 L 08/24/19 22:00 9 L Weight Admit Weight 128 lb 1.417 oz Weight 2.176 oz Most Recent Monitor Data Heart Rate from ECG 74 NIBP 117/64 NIBP BP-Mean 81 Respiration from ECG 10 SpO2 98 I&O: 08/24/19 08/25/19 08/26/19 06:59 06:59 06:59 Intake Total 2700.8 3609.40 Output Total 1684 1685 150 Balance 1016.8 1924.40 -150 Result Diagrams: 08/25/19 03:33 08/25/19 03:33 Additional Labs: Accuchecks 08/25/19 08/24/19 08/24/19 00:25 21:05 15:58 POC Glucose 198 H 129 H 160 H 08/24/19 08/24/19 08/24/19 11:31 10:26 09:22 POC Glucose 164 H 177 H 128 H 08/24/19 08/24/19 08/24/19 08:21 06:45 05:41 POC Glucose 109 142 H 180 H 08/24/19 08/24/19 08/24/19 04:46 03:49 02:36 POC Glucose 153 H 145 H 188 H 08/24/19 01:37 POC Glucose 183 H EKG Reviewed by me: Yes (sinus - 70's, no alarms) Hospitalist ROS - Medication Medications: Active Medications Generic Name Dose Route Start Last Admin Trade Name Freq PRN Reason Stop Dose Admin Acetaminophen 650 mg 08/06/19 21:43 08/10/19 01:43 Tylenol PO 650 mg Q4H PRN Administration Headache/Fever/Mild Pain (1-3) Albuterol/Ipratropium 3 ml 08/13/19 19:00 08/25/19 06:46 Duoneb NEB 3 ml [id number] JALYN Administration Calcium Carbonate 1,000 mg 08/06/19 21:43 08/08/19 12:10 Tums PO 1,000 mg Q4H PRN Administration Heartburn or Indigestion Enoxaparin Sodium 60 mg 08/17/19 21:00 08/25/19 08:08 Lovenox SC 60 mg 0900,2100 JALYN Administration Famotidine 20 mg 08/09/19 21:00 08/25/19 08:09 Pepcid SLOW IVP 20 mg BID JALYN Administration Guaifenesin/Dextromethorphan 15 ml 08/06/19 21:43 08/11/19 08:34 Robitussin Dm PO 15 ml Q4H PRN Administration Cough Hydralazine HCl 10 mg 08/11/19 15:35 08/11/19 17:25 Apresoline SLOW IVP 10 mg Q4H PRN Administration SBP > 180 and HR < 70 Sodium Chloride 1,000 mls @ 50 mls/hr 08/13/19 09:24 08/25/19 05:15 Normal Saline 0.9% IV Not Given .Q20H JALYN Midazolam HCl 100 mls @ 0 mls/hr 08/21/19 08:30 08/25/19 03:26 Versed IVPB 100 mls INF JALYN Administration Protocol Titrate Fentanyl Citrate 2,000 mcg/ 100 mls @ 0 mls/hr 08/23/19 21:30 08/25/19 01:16 Sodium Chloride IV 09/22/19 21:31 100 mls INF JALYN Administration Protocol Per Protocol Insulin Glargine 20 units/ 0.2 mls @ 0 mls/hr 08/24/19 09:00 08/25/19 08:09 Miscellaneous Medication SC 0.2 mls QAM JALYN Administration Insulin Human Lispro 0 units 08/24/19 07:10 08/25/19 03:45 Humalog SC 4 unit .MILD SLIDING SCALE PRN Administration Mild Correctional Scale Loperamide HCl 2 mg 08/08/19 08:04 08/08/19 12:10 Imodium PO 2 mg PRN PRN Administration Diarrhea/Loose Stools Lorazepam 1 mg 08/20/19 23:00 08/25/19 06:12 Ativan SLOW IVP 1 mg Q1H PRN Administration Anxiety/Agitation Methylprednisolone Sodium Succinate 40 mg 08/15/19 21:00 08/25/19 08:09 Solu-Medrol IVP 40 mg BID JALYN Administration Ondansetron HCl 4 mg 08/06/19 21:43 08/09/19 12:45 Zofran IVP 4 mg Q6H PRN Administration Nausea/Vomiting Sodium Chloride 10 ml 08/10/19 21:00 08/25/19 08:09 Flush - Normal Saline IVF 10 ml Q12HR JALYN Administration Sodium Chloride 10 ml 08/10/19 09:38 08/16/19 10:39 Flush - Normal Saline IVF 10 ml PRN PRN Administration Saline Flush Thiamine HCl 50 mg 08/08/19 09:00 08/25/19 08:09 Thiamine PO 50 mg DAILY JALYN Administration - Exam General Appearance: NAD General - other findings: intubated, sedated - Note - I did not enter the room Hosp A/P (1) Acute respiratory failure with hypoxemia Code(s): J96.01 - ACUTE RESPIRATORY FAILURE WITH HYPOXIA Status: Acute (2) COVID-19 virus infection Code(s): U07.1 - COVID-19 Status: Acute (3) Diabetes mellitus type 2 in nonobese Code(s): E11.9 - TYPE 2 DIABETES MELLITUS WITHOUT COMPLICATIONS Status: Chronic (4) Hypertension Code(s): I10 - ESSENTIAL (PRIMARY) HYPERTENSION Status: Chronic - Plan Acute resp failure remains intubated - appreciate Pulm/CC directing care Repeat blood sugar this morning 140's - continue current lantus dose and SSI dvt prophy - on full dose lovenox gi prophy - IV famotidine code status full Pt remains at high risk in current condition
[2019-08-25] MEDS: Haloperidol Lactate 5 MG/ML VIAL IM SCH (09:52)
--- NOTE | 2019-08-25 11:04 | PRG ---
DATE OF SERVICE: 08/25/2019 35 minutes critical care time. SUBJECTIVE: The patient is much more arousable today. I can get him to follow commands. OBJECTIVE: VITAL SIGNS: Temperature 98.3, pulse 66, blood pressure 141/72, O2 saturation 100%. A 24-hour intake 3609 and output 1685. HEENT: Unremarkable. NECK: No adenopathy or JVD. LUNGS: Crackles anteriorly. CARDIAC: S1 and S2. Regular. ABDOMEN: Soft. EXTREMITIES: No edema. LABORATORY DATA: White blood cell count 13.9, hematocrit 32.4, and platelet count 193. PH of 7.33, pCO2 of 48, pO2 of 74 on SIMV rate of 6, tidal volume 600, PEEP 5, pressure support 13, FiO2 of 60%. Sodium 138, potassium 5, chloride 106, CO2 of 28, BUN 33, creatinine 0.7, glucose 270. ASSESSMENT: 1. COVID-19 pneumonia. 2. Improved mental status. PLAN: Stop the Versed and try Precedex instead of anything as needed. I think by tomorrow, we can start attempting weaning trials. I think the low PO2 on the blood gas probably indicates this is a mixed venous sample. Job ID: [id number]
[2019-08-26 03:31] LABS: #Lymphocytes 0.5 thou/uL (1.20-3.40); #Monocytes 0.3 thou/uL (0.11-0.59); %Basophils 0.1 % (0.0-1.0); %Eosinophils 0.1 % (0.0-10.0); %Lymphocytes 3.8 % (21.0-51.0); %Monocytes 2.3 % (0.0-10.0); %Neutrophils 93.8 % (42.0-75.0); Hemoglobin 11.7 g/dL (14.0-18.0); Mean Corpuscular Hemoglobin 31.7 pg (27.0-31.0); Mean Corpuscular Volume 99.1 fL (78.0-98.0); Mean Platelet Volume 9.3 fL (7.4-10.4); Platelet Count 197 thou/uL (130-400); RBC Distribution Width 13.6 % (11.5-14.5); Red Blood Cell (RBC) Count 3.69 mill/uL (4.70-6.10); White Blood Cell (WBC) Count 13.9 thou/uL (4.8-10.8)
[2019-08-26 03:51] LABS: Anion Gap 11 mmol/L (10-20); BUN (Urea Nitrogen) 29 mg/dL (8.4-25.7); Calc. Creatinine Clearance 93 mL/min (70-130); Calcium 8.2 mg/dL (7.8-10.44); Carbon Dioxide 26 mmol/L (23-31); Chloride 105 mmol/L (98-107); Estimated GFR-MDRD Greater than 90; Glucose 269 mg/dL (80-115); Sodium 137 mmol/L (136-145)
[2019-08-26] MEDS: HumaLOG 300 UNITS/3 ML VIAL SC PRN ×4 (03:54→22:16)
[2019-08-26] MEDS: Lorazepam 2 MG/ML VIAL SLOW IVP PRN ×2 (04:15→08:48)
[2019-08-26 04:56] LABS: Base Excess (BEa) 2.1 mEq/L (-2.0 to +3.0); CO2 Tension 38.1 mmHg (35.0-45.0); Calcium, Ionized (arterial) 1.18 mmol/L (1.12-1.30); Carboxyhemoglobin (COHb) 0.3 gm% (0.0-3.0); Hemoglobin (Hb) 11.9 g/dL (14.0-18.0); Potassium - ABG Lab 4.52 mmol/L (3.70-5.30); pH, Arterial 7.45 (7.35-7.45)
[2019-08-26 05:18] LABS: O2 Tension (PaO2), arterial 53.4 mmHg (> 80.0); Puncture Site RBA
[2019-08-26 05:19] LABS: ALV-art Gradient 255.475 (0-20)
[2019-08-26] MEDS: Thiamine 100 MG TAB PO SCH (08:49)
[2019-08-26] MEDS: methylPREDNISolone Sod Succ 40 MG VIAL IVP SCH (08:49)
[2019-08-26] MEDS: Famotidine/PF 20 mg/2ml Vial SLOW IVP SCH ×2 (08:49→20:47)
[2019-08-26] MEDS: Enoxaparin Sodium 60 MG/0.6 ML SYRINGE SC SCH ×2 (08:49→20:47)
[2019-08-26] MEDS: fentaNYL Citrate/PF 2,000 MCG in Sodium Chloride 0.9% 60 ML IV SCH (09:49)
[2019-08-26] MEDS: Insulin Glargine 20 UNITS in Pre-Filled Syringe 1 EACH SC SCH (09:56)
[2019-08-26] MEDS ORDERED: risperiDONE 1 MG TAB PO SCH ×2 (10:00→21:00)
--- NOTE | 2019-08-26 10:15 | PRG ---
DATE OF SERVICE: 08/26/2019 SUBJECTIVE: Terrance Mercado remains intubated in the vent, very agitated, on Precedex. His Diprivan was discontinued tachycardic. OBJECTIVE: VITAL SIGNS: Pulse 123, blood pressure 168/83, sats 99%, and respiratory rate 35. He is on IMV rate of 12. CHEST: Decreased breath sounds. No wheezing. CARDIAC: Normal S1, S2. No gallops. ABDOMEN: Soft. LABORATORY DATA: Lytes are normal. PO2 was 53, pCO2 of 38, pH 7.45 on 50% and PEEP of 5. White count 13,000. ASSESSMENT: Coronavirus positive pneumonia, metabolic encephalopathy. He is clearly at this stage, not weanable until his neurologic status improved. I am going to start him on low-dose risperidone. To see whether he can try and get him off the vent. He is going to need a trach and PEG. Otherwise, continue steroids. Supportive care, nutrition, PT. One-half hour of critical care time. Job ID: [id number]
--- NOTE | 2019-08-26 13:27 | PDOC.HOSPP ---
- Subjective Encounter Date: 08/26/19 Encounter Time: 13:20 non-verbal Subjective: No events overnight. Patient remains intubated. Did not enter the room to conserve PPE. - Objective Vital Signs & Weight: Vital Signs (12 hours) Temp Pulse Resp BP Pulse Ox 08/26/19 12:00 21 H 08/26/19 10:00 28 H 08/26/19 08:00 98.4 F 19 96 08/26/19 07:58 67 17 94 L 08/26/19 06:00 18 08/26/19 04:00 97.8 F 19 08/26/19 02:51 88 141/67 H 08/26/19 02:00 19 Weight Admit Weight 128 lb 1.417 oz Weight 143 lb 11.862 oz Most Recent Monitor Data Heart Rate from ECG 90 NIBP 131/71 NIBP BP-Mean 91 Respiration from ECG 23 SpO2 100 I&O: 08/25/19 08/26/19 08/27/19 06:59 06:59 06:59 Intake Total 3609.40 4279.9 90 Output Total 1685 2593 500 Balance 1924.40 1686.9 -410 Result Diagrams: 08/26/19 03:00 08/26/19 03:00 Additional Labs: Accuchecks 08/26/19 08/25/19 08/25/19 10:46 22:38 16:48 POC Glucose 248 H 261 H 165 H 08/25/19 08/25/19 08/25/19 11:28 08:35 03:50 POC Glucose 222 H 144 H 246 H Hospitalist ROS - Medication Medications: Active Medications Generic Name Dose Route Start Last Admin Trade Name Freq PRN Reason Stop Dose Admin Acetaminophen 650 mg 08/06/19 21:43 08/10/19 01:43 Tylenol PO 650 mg Q4H PRN Administration Headache/Fever/Mild Pain (1-3) Albuterol/Ipratropium 3 ml 08/13/19 19:00 08/26/19 07:58 Duoneb NEB 3 ml [id number] JALYN Administration Calcium Carbonate 1,000 mg 08/06/19 21:43 08/08/19 12:10 Tums PO 1,000 mg Q4H PRN Administration Heartburn or Indigestion Enoxaparin Sodium 60 mg 08/17/19 21:00 08/26/19 08:49 Lovenox SC 60 mg 0900,2100 JALYN Administration Famotidine 20 mg 08/09/19 21:00 08/26/19 08:49 Pepcid SLOW IVP 20 mg BID JALYN Administration Guaifenesin/Dextromethorphan 15 ml 08/06/19 21:43 08/11/19 08:34 Robitussin Dm PO 15 ml Q4H PRN Administration Cough Hydralazine HCl 10 mg 08/11/19 15:35 08/11/19 17:25 Apresoline SLOW IVP 10 mg Q4H PRN Administration SBP > 180 and HR < 70 Fentanyl Citrate 2,000 mcg/ 100 mls @ 0 mls/hr 08/23/19 21:30 08/26/19 09:49 Sodium Chloride IV 09/22/19 21:31 100 mls INF JALYN Administration Protocol Per Protocol Insulin Glargine 20 units/ 0.2 mls @ 0 mls/hr 08/24/19 09:00 08/26/19 09:56 Miscellaneous Medication SC 0.2 mls QAM JALYN Administration Dexmedetomidine HCl 400 mcg/ 100 mls @ 0 mls/hr 08/25/19 10:45 08/25/19 20:08 Sodium Chloride IVPB 100 mls INF JALYN Administration Protocol Per Protocol Ascorbic Acid 1,500 mg/ Sodium 53 mls @ 100 mls/hr 08/26/19 12:00 08/26/19 13 :16 Chloride IVPB 08/30/19 06:32 53 mls Q6HR JALYN Administration Midazolam HCl 100 mls @ 0 mls/hr 08/26/19 09:54 08/26/19 10:30 Versed IVPB 100 mls INF PRN Administration Sedation Protocol Titrate Insulin Human Lispro 0 units 08/24/19 07:10 08/26/19 03:54 Humalog SC 4 unit .MILD SLIDING SCALE PRN Administration Mild Correctional Scale Loperamide HCl 2 mg 08/08/19 08:04 08/08/19 12:10 Imodium PO 2 mg PRN PRN Administration Diarrhea/Loose Stools Lorazepam 1 mg 08/20/19 23:00 08/26/19 08:48 Ativan SLOW IVP 1 mg Q1H PRN Administration Anxiety/Agitation Ondansetron HCl 4 mg 08/06/19 21:43 08/09/19 12:45 Zofran IVP 4 mg Q6H PRN Administration Nausea/Vomiting Sodium Chloride 10 ml 08/10/19 21:00 08/26/19 11:31 Flush - Normal Saline IVF 10 ml Q12HR JALYN Administration Sodium Chloride 10 ml 08/10/19 09:38 08/16/19 10:39 Flush - Normal Saline IVF 10 ml PRN PRN Administration Saline Flush Thiamine HCl 50 mg 08/08/19 09:00 08/26/19 08:49 Thiamine PO 50 mg DAILY JALYN Administration Hosp A/P (1) Pneumonia due to COVID-19 virus Code(s): U07.1 - COVID-19; J12.89 - OTHER VIRAL PNEUMONIA Status: Acute (2) Acute respiratory failure with hypoxemia Code(s): J96.01 - ACUTE RESPIRATORY FAILURE WITH HYPOXIA Status: Acute (3) Diabetes mellitus type 2 in nonobese Code(s): E11.9 - TYPE 2 DIABETES MELLITUS WITHOUT COMPLICATIONS Status: Chronic (4) Hypertension Code(s): I10 - ESSENTIAL (PRIMARY) HYPERTENSION Status: Chronic - Plan Acute resp failure remains intubated since August 10 - appreciate Pulm/CC directing care Likely will need trach and PEG per pulmonology Blood sugars running in 200s, increase lantus dose and SSI dvt prophy - on full dose lovenox gi prophy - IV famotidine code status full Pt remains at high risk in current condition
[2019-08-26] MEDS ORDERED: risperiDONE 0.25 MG TAB PO SCH (21:00)
[2019-08-27 04:43] LABS: #Eosinphils 0.1 thou/uL (0.0-0.7); #Lymphocytes 0.7 thou/uL (1.20-3.40); #Monocytes 0.3 thou/uL (0.11-0.59); #Neutrophils 11.5 thou/uL (1.40-6.50); %Eosinophils 1.2 % (0.0-10.0); %Lymphocytes 5.3 % (21.0-51.0); %Neutrophils 91.6 % (42.0-75.0); Hemoglobin 10.9 g/dL (14.0-18.0); Mean Corpuscular HGB CONC 33.4 g/dL (32.0-36.0); Mean Corpuscular Hemoglobin 33.3 pg (27.0-31.0); Mean Corpuscular Volume 99.6 fL (78.0-98.0); Mean Platelet Volume 8.9 fL (7.4-10.4); Platelet Count 173 thou/uL (130-400); RBC Distribution Width 13.8 % (11.5-14.5); Red Blood Cell (RBC) Count 3.27 mill/uL (4.70-6.10); White Blood Cell (WBC) Count 12.6 thou/uL (4.8-10.8)
[2019-08-27 05:01] LABS: Anion Gap 10 mmol/L (10-20); BUN (Urea Nitrogen) 25 mg/dL (8.4-25.7); Calc. Creatinine Clearance 98 mL/min (70-130); Calcium 7.9 mg/dL (7.8-10.44); Carbon Dioxide 28 mmol/L (23-31); Chloride 104 mmol/L (98-107); Estimated GFR-MDRD Greater than 90; Glucose 162 mg/dL (80-115); Potassium 4.5 mmol/L (3.5-5.1); Sodium 137 mmol/L (136-145)
[2019-08-27] MEDS: fentaNYL Citrate/PF 2,000 MCG in Sodium Chloride 0.9% 60 ML IV SCH (07:18)
[2019-08-27] MEDS: Enoxaparin Sodium 60 MG/0.6 ML SYRINGE SC SCH ×2 (07:55→20:40)
[2019-08-27] MEDS: Thiamine 100 MG TAB PO SCH (07:55)
[2019-08-27] MEDS: Lorazepam 2 MG/ML VIAL SLOW IVP PRN (07:56)
[2019-08-27] MEDS: methylPREDNISolone Sod Succ 40 MG VIAL IVP SCH (07:56)
[2019-08-27] MEDS: Famotidine/PF 20 mg/2ml Vial SLOW IVP SCH ×2 (07:56→20:40)
[2019-08-27] MEDS: Insulin Glargine 25 UNITS in Pre-Filled Syringe 1 EACH SC SCH (07:59)
[2019-08-27 08:03] LABS: Actual Bicarbonate (HCO3a) 25.3 mEq/L (22-28); Base Excess (BEa) 1.6 mEq/L (-2.0 to +3.0); CO2 Tension 36.7 mmHg (35.0-45.0); Calcium, Ionized (arterial) 1.19 mmol/L (1.12-1.30); Carboxyhemoglobin (COHb) 0.8 gm% (0.0-3.0); Potassium - ABG Lab 4.49 mmol/L (3.70-5.30); pH, Arterial 7.46 (7.35-7.45)
[2019-08-27 08:21] LABS: O2 Tension (PaO2), arterial 37.2 mmHg (> 80.0); Puncture Site L.R.
[2019-08-27] MEDS ORDERED: Propofol 1,000 MG/100 ML VIAL IV ONE (08:21)
[2019-08-27 08:22] LABS: ALV-art Gradient 416.025 (0-20)
--- NOTE | 2019-08-27 08:22 | PRG ---
DATE OF SERVICE: 08/27/2019 SUBJECTIVE: Mr. Terrance Mercado remains encephalopathic agitation this morning. OBJECTIVE: VITAL SIGNS: Saturations are 96%, blood pressure 93/55, pulse 76, respiratory rate 18, and afebrile. CHEST: Rhonchi, crackles. CARDIAC: Normal S1, S2. No gallops. ABDOMEN: No masses. LABORATORY DATA: Unremarkable. Lytes are normal. ASSESSMENT: Coronavirus positive pneumonia with severe encephalopathy. PLAN: Continue thiamine and steroids. DVT prophylaxis. We will try and arrange for trach and PEG. . He is not weanable at this stage. One-half hour of critical care time. Job ID: [id number]
[2019-08-27] MEDS ORDERED: Vecuronium 10 MG VIAL ONE (08:26)
--- NOTE | 2019-08-27 08:41 | RAD ---
EXAM: Single view of the chest HISTORY: Viral pneumonia COMPARISON: 08/23/2019 FINDINGS: Single view of the chest shows a normal sized cardiomediastinal silhouette. The endotrache al tube and NG tube are unchanged in position. Stable multifocal infiltrates are seen in the lungs. The bones are unremarkable. IMPRESSION: Stable multifocal pneumonia
[2019-08-27] MEDS ORDERED: Vecuronium 10 MG VIAL IV SCH (08:45)
[2019-08-27] MEDS: Propofol 1,000 MG/100 ML VIAL IV PRN ×2 (09:02→19:13)
--- NOTE | 2019-08-27 09:07 | PDOC.EVN ---
Event Note - Event Note Event Note: Chart reviewed. Patient remains intubated and sedated. Will need trach and PEG. Already seen by pulmonology so did not enter the room to conserve PPE.
[2019-08-27] MEDS: risperiDONE 0.25 MG TAB PO SCH ×2 (10:42→20:40)
[2019-08-27 13:52] LABS: SARS-CoV-2 MS2 Positive; SARS-CoV-2 N Gene Positive; SARS-CoV-2 S Gene Positive; SARS-CoV-2 orf1ab Positive
[2019-08-27] MEDS: Mometasone 100 MCG/PUFF (1 INHALER) INH SCH (19:35)
[2019-08-27] MEDS: HumaLOG 300 UNITS/3 ML VIAL SC PRN (22:33)
[2019-08-28] MEDS: HumaLOG 300 UNITS/3 ML VIAL SC PRN ×4 (03:49→22:12)
[2019-08-28 04:15] LABS: #Lymphocytes 0.5 thou/uL (1.20-3.40); #Monocytes 0.3 thou/uL (0.11-0.59); #Neutrophils 15.1 thou/uL (1.40-6.50); %Eosinophils 0.2 % (0.0-10.0); %Monocytes 2.2 % (0.0-10.0); %Neutrophils 94.7 % (42.0-75.0); Hemoglobin 10.9 g/dL (14.0-18.0); Mean Corpuscular HGB CONC 33.2 g/dL (32.0-36.0); Mean Corpuscular Volume 99.5 fL (78.0-98.0); Mean Platelet Volume 9.2 fL (7.4-10.4); Platelet Count 170 thou/uL (130-400); RBC Distribution Width 13.9 % (11.5-14.5); Red Blood Cell (RBC) Count 3.29 mill/uL (4.70-6.10)
[2019-08-28 04:34] LABS: Anion Gap 10 mmol/L (10-20); BUN (Urea Nitrogen) 28 mg/dL (8.4-25.7); Calc. Creatinine Clearance 91 mL/min (70-130); Carbon Dioxide 29 mmol/L (23-31); Chloride 104 mmol/L (98-107); Estimated GFR-MDRD Greater than 90; Glucose 226 mg/dL (80-115); Potassium 4.9 mmol/L (3.5-5.1); Sodium 138 mmol/L (136-145)
[2019-08-28] MEDS: Propofol 1,000 MG/100 ML VIAL IV PRN ×2 (05:35→16:12)
[2019-08-28] MEDS: Mometasone 100 MCG/PUFF (1 INHALER) INH SCH ×2 (07:31→18:54)
[2019-08-28 08:27] LABS: Actual Bicarbonate (HCO3a) 24.5 mEq/L (22-28); CO2 Tension 39.5 mmHg (35.0-45.0); Calcium, Ionized (arterial) 1.19 mmol/L (1.12-1.30); Carboxyhemoglobin (COHb) 0.2 gm% (0.0-3.0); Hemoglobin (Hb) 11.4 g/dL (14.0-18.0); pH, Arterial 7.41 (7.35-7.45)
[2019-08-28] MEDS: Thiamine 100 MG TAB PO SCH (08:34)
[2019-08-28] MEDS: Enoxaparin Sodium 60 MG/0.6 ML SYRINGE SC SCH ×2 (08:35→22:33)
[2019-08-28] MEDS: Famotidine/PF 20 mg/2ml Vial SLOW IVP SCH ×2 (08:35→21:49)
[2019-08-28] MEDS: Insulin Glargine 25 UNITS in Pre-Filled Syringe 1 EACH SC SCH (08:36)
[2019-08-28 08:45] LABS: O2 Tension (PaO2), arterial 56.6 mmHg (> 80.0); Puncture Site RRA
[2019-08-28 08:47] LABS: ALV-art Gradient 393.125 (0-20)
[2019-08-28] MEDS: methylPREDNISolone Sod Succ 40 MG VIAL IVP SCH (08:58)
[2019-08-28] MEDS: risperiDONE 0.25 MG TAB PO SCH ×2 (08:58→21:49)
--- NOTE | 2019-08-28 09:43 | PRG ---
DATE OF SERVICE: 08/28/2019 SUBJECTIVE: Rogelio Carlos remains intubated in the vent, sedated. I spoke to his daughter, oYla, telephone number is [phone] regarding ongoing respiratory failure without much improvement. His x-ray yesterday still shows extensive bilateral pulmonary infiltrates. OBJECTIVE: VITAL SIGNS: His sats are 95%, pulse 59, blood pressure 117/86, respiratory rate 22. I's and O's have been good. CHEST: Crackles, rhonchi. CARDIAC: Sinus tach. ABDOMEN: Soft. No masses. LABORATORY DATA: His white count is 16,000, H and H 10 and 32, platelet count is 170. PO2 is 56, pCO2 of 39, pH 7.41 on 70%, PEEP of 10, rate of 12, 450 tidal volume. Lytes are normal. Glucose 212. ASSESSMENT: Respiratory failure, status post coronavirus pneumonia. He has had Remdesivir, plasma, and high-dose steroids and antibiotics without getting much improvement. He needs a trach and a PEG, which we are in the process of trying to arrange. One-half hour of critical time. Job ID: [id number]
[2019-08-28] MEDS: Lorazepam 2 MG/ML VIAL SLOW IVP PRN ×2 (16:11→21:49)
--- NOTE | 2019-08-28 16:53 | PDOC.EVN ---
Event Note - Event Note Event Note: Chart reviewed and case discussed with nurse. Room not entered to save PPE as Dr. Dunbar has already seen today. Plan to get PEG and Trach and then see if can be weaned off the vent.
[2019-08-28] MEDS: fentaNYL Citrate/PF 2,000 MCG in Sodium Chloride 0.9% 60 ML IV SCH (19:33)
[2019-08-29] MEDS: Propofol 1,000 MG/100 ML VIAL IV PRN (00:03)
[2019-08-29] MEDS: Lorazepam 2 MG/ML VIAL SLOW IVP PRN ×4 (03:13→23:48)
[2019-08-29] MEDS ORDERED: Vecuronium 10 MG VIAL ONE (03:38)
[2019-08-29] MEDS ORDERED: Sterile Water 10 ML ONE (03:41)
[2019-08-29 03:50] LABS: Anion Gap 13 mmol/L (10-20); BUN (Urea Nitrogen) 25 mg/dL (8.4-25.7); Calc. Creatinine Clearance 95 mL/min (70-130); Calcium 8.3 mg/dL (7.8-10.44); Carbon Dioxide 27 mmol/L (23-31); Chloride 104 mmol/L (98-107); Estimated GFR-MDRD Greater than 90; Glucose 60 mg/dL (80-115); Potassium 5.1 mmol/L (3.5-5.1); Sodium 139 mmol/L (136-145)
[2019-08-29 04:04] LABS: Actual Bicarbonate (HCO3a) 32.2 mEq/L (22-28); Base Excess (BEa) 2.9 mEq/L (-2.0 to +3.0); Calcium, Ionized (arterial) 1.25 mmol/L (1.12-1.30); Carboxyhemoglobin (COHb) 0.6 gm% (0.0-3.0); O2 Tension (PaO2), arterial 69.3 mmHg (> 80.0); Potassium - ABG Lab 4.51 mmol/L (3.70-5.30); pH, Arterial 7.26 (7.35-7.45)
[2019-08-29 04:06] LABS: CO2 Tension 74.2 mmHg (35.0-45.0); Puncture Site LRA
[2019-08-29] MEDS ORDERED: hydrALAZINE 20 MG/ML VIAL ONE (04:15)
[2019-08-29 04:24] LABS: Band 14 % (5-11); Hemoglobin 11.7 g/dL (14.0-18.0); Hypochromia SLIGHT = 6-15 cells (100X) (0-5/hpf); Lymphocytes 9 % (21-51); MDiff Complete? YES; Mean Corpuscular HGB CONC 31.8 g/dL (32.0-36.0); Mean Corpuscular Hemoglobin 31.8 pg (27.0-31.0); Mean Platelet Volume 9.8 fL (7.4-10.4); Monocytes 7 % (0-10); Neutrophil 70 % (42-75); Platelet Count 209 thou/uL (130-400); Platelet Morphology Comment Appears Adequate; RBC Distribution Width 14.4 % (11.5-14.5); Red Blood Cell (RBC) Count 3.68 mill/uL (4.70-6.10); White Blood Cell (WBC) Count 20.6 thou/uL (4.8-10.8)
[2019-08-29] MEDS ORDERED: hydrALAZINE 20 MG/ML VIAL SLOW IVP SCH (04:30)
[2019-08-29] MEDS ORDERED: Metoprolol Tartrate 5 MG/5 ML VIAL IVP PRN (04:30)
[2019-08-29] MEDS ORDERED: Metoprolol Tartrate 5 MG/5 ML VIAL ONE (04:33)
[2019-08-29] MEDS: Acetaminophen 325 MG TAB PO PRN (05:17)
[2019-08-29] MEDS: Vecuronium 10 MG VIAL IVP PRN (05:26)
[2019-08-29] MEDS ORDERED: Lidocaine 1% w/Epinephrine 1:100K 20 ML VIAL IJ SCH (07:00)
[2019-08-29] MEDS ORDERED: Vecuronium 10 MG VIAL IV PRN (07:00)
[2019-08-29] MEDS ORDERED: MEROPENEM 1 GM/50 ML 1 GM in Premix Bag 1 BAG IVPB SCH (07:00)
[2019-08-29] MEDS: Mometasone 100 MCG/PUFF (1 INHALER) INH SCH ×3 (07:29→19:18)
[2019-08-29 07:35] LABS: Actual Bicarbonate (HCO3a) 31.9 mEq/L (22-28); Base Excess (BEa) -1.1 mEq/L (-2.0 to +3.0); Calcium, Ionized (arterial) 1.25 mmol/L (1.12-1.30); Carboxyhemoglobin (COHb) 0.5 gm% (0.0-3.0); Hemoglobin (Hb) 16.7 g/dL (14.0-18.0); Potassium - ABG Lab 4.15 mmol/L (3.70-5.30)
[2019-08-29] MEDS: risperiDONE 0.25 MG TAB PO SCH ×2 (07:41→20:45)
[2019-08-29] MEDS: Insulin Glargine 25 UNITS in Pre-Filled Syringe 1 EACH SC SCH (07:42)
[2019-08-29] MEDS: methylPREDNISolone Sod Succ 40 MG VIAL IVP SCH (07:42)
[2019-08-29 07:44] LABS: pH, Arterial 7.13 (7.35-7.45)
[2019-08-29 07:45] LABS: ALV-art Gradient 537.375 (0-20); CO2 Tension 97.3 mmHg (35.0-45.0); Puncture Site RRA
[2019-08-29] MEDS: Famotidine/PF 20 mg/2ml Vial SLOW IVP SCH ×2 (07:50→20:45)
--- NOTE | 2019-08-29 07:52 | RAD ---
RADIOGRAPH CHEST 1 VIEW: DATE: 08/29/2019 TIME: 6:20 AM HISTORY: 69-year-old male with respiratory failure due to viral pneumonia COMPARISON: 08/27/2019 FINDINGS: Endotracheal tube and esophagogastric tube remain. No cardiomegaly. Somewhat severe bilateral patchy mostly alveolar infiltrates, with regions of dense consolidations. Right pleural effusion. No pneumothorax. Slight interval worsening of the infiltrates. IMPRESSION: 1. Slight interval worsening in diffuse bilateral severe infiltrates. 2. Right pleural effusion remains.
--- NOTE | 2019-08-29 08:06 | PRG ---
DATE OF SERVICE: 08/29/2019 SUBJECTIVE: Terrance Mercado this morning was sedated and paralyzed. He has agonal respirations last night. His breathing was stacked, asynchronous with the vent. OBJECTIVE: VITAL SIGNS: His respiratory rate is now at 20. He is 100% FiO2 on bilevel, high 14, low 12. His sats are barely 84%. Blood pressure 154/68. GENERAL: Cachectic-looking gentleman. CHEST: With extensive rhonchi, crackles. CARDIAC: Sinus tach. ABDOMEN: Soft. LABORATORY DATA: White count 20,000, H and H 11 and 36, and platelet count is normal. PO2 is 69, pCO2 of 74, pH 7.26, this is on 70%, now is on 100%. X-ray now shows worsening diffuse infiltrates. ASSESSMENT: 1. Coronavirus positive pneumonia with acute respiratory distress syndrome, prolonged intubation day #23. 2. Severe metabolic encephalopathy. PLAN: He at this stage is not weanable. Trach and PEG were to be performed today, but considering his overall status, particularly his x-ray is showing worsening pulmonary infiltrates, severe ARDS. He has received all supportive care. I spoke to his daughter at length yesterday. His prognosis is grave. He is still on steroids. He has elevated white count. He may have a nosocomial infection. I may consider starting empirically him on broad-spectrum antibiotic. Prognosis is grave. We will get Palliative Care to see the patient again. Discuss long-term prognosis. One-half hour of critical care time. Job ID: [id number]
[2019-08-29] MEDS: Thiamine 100 MG TAB PO SCH (12:55)
[2019-08-29 14:38] VITALS: BMI 23.4
[2019-08-29] MEDS: MEROPENEM 1 GM/50 ML 1 GM in Premix Bag 1 BAG IVPB SCH ×2 (15:52→21:01)
--- NOTE | 2019-08-29 16:09 | PDOC.EVN ---
Event Note - Event Note Event Note: Patient coded this morning. Return of pulse and blood pressure. Palliative Care and Dr. Dunbar discussed with family and patient now DNAR. Will likely pass soon. If still alive in the AM palliative care will discuss possibility of compassionate extubation in the morning. In order to save PPE and as Dr. Dunbar has already seen the patient I did not enter the room.
[2019-08-29] MEDS: Enoxaparin Sodium 60 MG/0.6 ML SYRINGE SC SCH (20:45)
[2019-08-29] MEDS: fentaNYL Citrate/PF 2,000 MCG in Sodium Chloride 0.9% 60 ML IV SCH (23:56)
[2019-08-30 03:38] LABS: #Eosinphils 0.2 thou/uL (0.0-0.7); #Lymphocytes 0.6 thou/uL (1.20-3.40); #Monocytes 0.4 thou/uL (0.11-0.59); #Neutrophils 12.2 thou/uL (1.40-6.50); %Basophils 0.2 % (0.0-1.0); %Eosinophils 1.3 % (0.0-10.0); %Lymphocytes 4.3 % (21.0-51.0); %Monocytes 2.8 % (0.0-10.0); %Neutrophils 91.4 % (42.0-75.0); Hemoglobin 10.4 g/dL (14.0-18.0); Mean Corpuscular HGB CONC 32.1 g/dL (32.0-36.0); Mean Corpuscular Hemoglobin 32.6 pg (27.0-31.0); Mean Platelet Volume 8.4 fL (7.4-10.4); Platelet Count 178 thou/uL (130-400); RBC Distribution Width 14.4 % (11.5-14.5); Red Blood Cell (RBC) Count 3.19 mill/uL (4.70-6.10); White Blood Cell (WBC) Count 13.3 thou/uL (4.8-10.8)
[2019-08-30 03:55] LABS: Anion Gap 11 mmol/L (10-20); BUN (Urea Nitrogen) 27 mg/dL (8.4-25.7); Calc. Creatinine Clearance 93 mL/min (70-130); Calcium 7.4 mg/dL (7.8-10.44); Carbon Dioxide 32 mmol/L (23-31); Chloride 105 mmol/L (98-107); Estimated GFR-MDRD Greater than 90; Glucose 83 mg/dL (80-115); Sodium 144 mmol/L (136-145)
[2019-08-30] MEDS: MEROPENEM 1 GM/50 ML 1 GM in Premix Bag 1 BAG IVPB SCH ×3 (05:04→21:18)
[2019-08-30] MEDS: Enoxaparin Sodium 60 MG/0.6 ML SYRINGE SC SCH ×2 (07:33→21:17)
[2019-08-30] MEDS: Thiamine 100 MG TAB PO SCH (07:33)
[2019-08-30] MEDS: methylPREDNISolone Sod Succ 40 MG VIAL IVP SCH (07:33)
[2019-08-30] MEDS: risperiDONE 0.25 MG TAB PO SCH ×2 (07:34→21:18)
[2019-08-30] MEDS: Lorazepam 2 MG/ML VIAL SLOW IVP PRN ×4 (07:34→21:40)
[2019-08-30] MEDS: Famotidine/PF 20 mg/2ml Vial SLOW IVP SCH ×2 (07:35→21:18)
[2019-08-30] MEDS: Insulin Glargine 25 UNITS in Pre-Filled Syringe 1 EACH SC SCH (07:36)
[2019-08-30] MEDS: Mometasone 100 MCG/PUFF (1 INHALER) INH SCH ×2 (07:45→18:36)
[2019-08-30 07:55] LABS: Actual Bicarbonate (HCO3a) 28.4 mEq/L (22-28); Base Excess (BEa) 4.6 mEq/L (-2.0 to +3.0); CO2 Tension 39.3 mmHg (35.0-45.0); Calcium, Ionized (arterial) 1.11 mmol/L (1.12-1.30); Carboxyhemoglobin (COHb) 0.6 gm% (0.0-3.0); Hemoglobin (Hb) 12.4 g/dL (14.0-18.0); Potassium - ABG Lab 3.71 mmol/L (3.70-5.30); pH, Arterial 7.48 (7.35-7.45)
[2019-08-30 08:20] LABS: O2 Tension (PaO2), arterial 52.4 mmHg (> 80.0)
[2019-08-30 08:21] LABS: ALV-art Gradient 433.225 (0-20); Puncture Site RRA
--- NOTE | 2019-08-30 09:41 | PRG ---
DATE OF SERVICE: 08/30/2019 SUBJECTIVE: Terrance Mercado this morning remains intubated in the vent, sedated with Ativan. OBJECTIVE: VITAL SIGNS: Pulse 114, blood pressure 149/88, saturations are 92% on 70% FiO2 on bilevel, low PEEP of 10. CHEST: He had extensive rhonchi, crackles. CARDIAC: Sinus tach. ABDOMEN: Soft. LABORATORY DATA: His pO2 is 52, pCO2 is 39, pH of 7.48, low PEEP of 14, high PEEP of 40. White count 13,000. Lytes are normal. ASSESSMENT: Coronavirus pneumonia, severe acute respiratory distress syndrome, worsening primary cardiac status. He had an episode of hypotension and asystole, requiring epinephrine, bicarb yesterday. For a period of time, I discussed with the daughter a lot more multiple times. She has finally agreed to make him a DNR. His prognosis is grave. We will continue comfort care. One-half hour of critical care time. Job ID: [id number]
--- NOTE | 2019-08-30 15:22 | PDOC.EVN ---
Event Note - Event Note Event Note: Chart reviewed. Patient remains on the ventilator. Now DNAR. Poor prognosis. Dr. Dunbar rounded already so did not enter the room to conserve PPI.
[2019-08-30] MEDS: fentaNYL Citrate/PF 2,000 MCG in Sodium Chloride 0.9% 60 ML IV SCH (16:16)
[2019-08-31] MEDS: Lorazepam 2 MG/ML VIAL SLOW IVP PRN ×4 (01:33→13:26)
[2019-08-31 03:07] VITALS: BP 115/67
[2019-08-31 04:12] LABS: #Lymphocytes 0.6 thou/uL (1.20-3.40); #Monocytes 0.5 thou/uL (0.11-0.59); %Eosinophils 0.1 % (0.0-10.0); %Lymphocytes 3.8 % (21.0-51.0); %Monocytes 3.2 % (0.0-10.0); %Neutrophils 92.9 % (42.0-75.0); Hemoglobin 10.5 g/dL (14.0-18.0); Mean Corpuscular HGB CONC 31.3 g/dL (32.0-36.0); Mean Corpuscular Hemoglobin 31.7 pg (27.0-31.0); Mean Platelet Volume 8.5 fL (7.4-10.4); Platelet Count 211 thou/uL (130-400); RBC Distribution Width 14.3 % (11.5-14.5); Red Blood Cell (RBC) Count 3.31 mill/uL (4.70-6.10); White Blood Cell (WBC) Count 15.1 thou/uL (4.8-10.8)
[2019-08-31 04:40] LABS: Anion Gap 15 mmol/L (10-20); BUN (Urea Nitrogen) 31 mg/dL (8.4-25.7); Calc. Creatinine Clearance 87 mL/min (70-130); Calcium 7.7 mg/dL (7.8-10.44); Carbon Dioxide 26 mmol/L (23-31); Chloride 104 mmol/L (98-107); Estimated GFR-MDRD Greater than 90; Glucose 163 mg/dL (80-115); Potassium 4.4 mmol/L (3.5-5.1); Sodium 141 mmol/L (136-145)
[2019-08-31] MEDS: MEROPENEM 1 GM/50 ML 1 GM in Premix Bag 1 BAG IVPB SCH ×2 (06:17→13:26)
[2019-08-31] MEDS: Mometasone 100 MCG/PUFF (1 INHALER) INH SCH (07:39)
[2019-08-31 07:56] LABS: Actual Bicarbonate (HCO3a) 23.5 mEq/L (22-28); Base Excess (BEa) -1.9 mEq/L (-2.0 to +3.0); CO2 Tension 42.7 mmHg (35.0-45.0); Calcium, Ionized (arterial) 1.17 mmol/L (1.12-1.30); Carboxyhemoglobin (COHb) 0.4 gm% (0.0-3.0); Hemoglobin (Hb) 10.6 g/dL (14.0-18.0); O2 Tension (PaO2), arterial 67.9 mmHg (> 80.0); Potassium - ABG Lab 4.18 mmol/L (3.70-5.30); pH, Arterial 7.36 (7.35-7.45)
[2019-08-31 08:14] LABS: ALV-art Gradient 413.475 (0-20); Puncture Site RRAD
[2019-08-31] MEDS: Enoxaparin Sodium 60 MG/0.6 ML SYRINGE SC SCH (08:15)
[2019-08-31] MEDS: Famotidine/PF 20 mg/2ml Vial SLOW IVP SCH (08:15)
[2019-08-31] MEDS: Thiamine 100 MG TAB PO SCH (08:15)
[2019-08-31] MEDS: risperiDONE 0.25 MG TAB PO SCH (08:15)
[2019-08-31] MEDS: methylPREDNISolone Sod Succ 40 MG VIAL IVP SCH (08:16)
[2019-08-31] MEDS: Insulin Glargine 25 UNITS in Pre-Filled Syringe 1 EACH SC SCH (08:17)
[2019-08-31] MEDS: fentaNYL Citrate/PF 2,000 MCG in Sodium Chloride 0.9% 60 ML IV SCH (10:52)
[2019-08-31] MEDS: HumaLOG 300 UNITS/3 ML VIAL SC PRN (11:50)
--- NOTE | 2019-08-31 11:53 | PRG ---
DATE OF SERVICE: 08/31/2019 SUBJECTIVE: Rogelio Carlos remains intubated in the vent, sedated. OBJECTIVE: VITAL SIGNS: Pulse 99, saturations are 92% on 70% FiO2, PEEP 10, respiratory rate 18, CHEST: Bilateral rhonchi and crackles. CARDIAC: Sinus tachycardia. ABDOMEN: Soft. LABORATORY DATA: A pO2 of 67, pCO2 of 40, pH 7.37 on BiLevel. His low PEEP is now 14. His high PEEP is 40. 75% FiO2. Lytes are normal. ASSESSMENT: 1. Respiratory failure. 2. Acute respiratory distress syndrome. 3. Prolonged intubation, 3 weeks. 4. Status post cardiopulmonary resuscitation. PLAN: At this stage, the patient is not weanable. Family is to make a decision regarding comfort care. Additionally, we will start low-dose nutrition. If he is able to get better, we may consider trach and PEG, though at this stage, this seems unlikely. One-half hour of Critical Care time. Job ID: [id number]
[2019-08-31] MEDS ORDERED: Sterile Water 10 ML ONE ×2 (12:33→12:35)
[2019-08-31] MEDS: Vecuronium 10 MG VIAL IVP PRN (12:36)
--- NOTE | 2019-08-31 14:00 | PDOC.EVN ---
Event Note - Event Note Event Note: Did not see the patient to avoid unnecessary exposure and conserve PPE. Patient remains gravely ill on the vent. Now DNAR. Dr. Dunbar attempting some feeds. Patient not likely to survive.
[2019-08-31 14:07] VITALS: TEMP 98.7
--- NOTE | 2019-09-02 05:18 | PQF ---
CLINICAL DOCUMENTATION CLARIFICATION FORM: Dear : Edward Alvarez Date / Time: 09/02/2019 05:16 Please exercise your independent, professional judgment in responding to the clarification form. Clinical indicators are provided on the bottom of this form for your review Please check appropriate box(es): [ x ] Acute Renal Failure (ARF) / Acute Kidney Injury (OSCAR) [ ] Acute Tubular Necrosis (ATN) [ ] Acute Cortical Necrosis [ ] Acute Medullary Necrosis [ ] Acute on Chronic Renal Failure please specify Stage of CKD (see below) [ ] CKD without ARF/OSCAR please specify Stage of CKD [ ] ESRD [ ] Other diagnosis [ ] Unable to determine In addition, please specify: Present on Admission (POA): [x ] Yes [ ] No [ ] Unable to determine Physician Signature: Date/Time: For continuity of documentation, please document condition throughout progress notes and discharge summary. Thank You. To be completed by CDI/Coding staff for physician review: Present Clinical Indicators - Signs / Symptoms / Labs Results and Location in Medical Record [X] Acute kidney Injury with likely chronic kidney disease HP 08/05 [X] patient having generalized body aches,dry cough and loss of appetite HP [X] BUN: 08/05=49 08/18=28 08/25=29 08/30=31 Labs 08/05 [X] Creatinine: 08/05=1.82 08/18=0.67 08/25=0.66 08/30=0.68 Labs 08/05 [X] GFR:09/04=37 08/09=82 08/14=89 Labs 08/05 [X] a bit more diaphoretic PN 08/07 Present Risk Factors Results and Location in Medical Record [X] DM PN 08/06 [X] 69 years old male PN 08/06 [X] HTN PN 08/06 [X] Hyperkalemia PN 08/06 [X] Covid 19 infection PN 08/06 Present Treatments Results and Location in Medical Record [X] Replacement of electrolytes PN 08/06 [X] Monitoring of laboratory Labs 08/05 [X] IVF MAR 08/05 CDS/Communications Department Chair Signature: Nitza Avila Phone #: [phone] Date/Time: 09/02/2019 05:16 This is a permanent part of the Medical Record [facility]
--- NOTE | 2019-09-02 05:21 | PQF ---
CLINICAL DOCUMENTATION CLARIFICATION FORM: Dear : Edward Alvarez Date / Time: 09/02/2019 05:20 Please exercise your independent, professional judgment in responding to the clarification form. Clinical indicators are provided on the bottom of this form for your review Can you please clarify the diagnosis being treated? Please check appropriate box(es): [ ] Associated Diagnosis: Acute Congestive CHF Please specify type: [ ] Systolic CHF [ ] Diastolic CHF [ ] Combined [ ] Other diagnosis [x ] Unable to determine In addition, please specify: Present on Admission (POA): [ ] Yes [ ] No [ ] Unable to determine Physician Signature: Date/Time: For continuity of documentation, please document condition throughout progress notes and discharge summary. Thank You. To be completed by CDI/Coding staff for physician review: Present Clinical Indicators - Signs / Symptoms / Labs Results and Location in Medical Record [X] BNP: 08/1210=234.6 Labs 08/12 [X] presented with chest pain and cough ED Notes 08/05 [X] right pleural effusion Chest Xray 08/28 [X] He has some evidence suggestive of edema PN 08/11 [X] Chest:crackles and rhonchi PN 08/27 Present Risk Factors Results and Location in Medical Record [X] DM PN 08/06 [X] 69 years old male PN 08/06 [X] HTN PN 08/06 [X] OSCAR HP 08/05 Present Treatments Results and Location in Medical Record [X] Chest Xray Collected 08/05 [X] Electrocardiogram Collected 08/05 [X] Mechanical ventilation Clinical Panel Respiratory 08/10 [X] Decreased IV fluids PN 08/12 [X] Lasix 20mg IV MAR 08/12 This is a permanent part of the Medical Record [facility]
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
== END 2019-08-31 14:36 | disposition expired | DRG 207 ==
LOC: ERS 16:49 → T4-A 19:59 → CCU 08-09 11:18 → 2SW 08-10 10:51 → CCU 08-11 17:23
PROVIDERS: ADMIT Internal Medicine; ATTEND Internal Medicine
PROC: 8E0ZXY6 Isolation (ICD-10-PCS; 2019-08-06)
PROC: 3E02340 Introduction of Influenza Vaccine into Muscle, Percutaneous Approach (ICD-10-PCS; 2019-08-07)
PROC: 30233L1 Transfusion of Nonautologous Fresh Plasma into Peripheral Vein, Percutaneous Approach (ICD-10-PCS; 2019-08-10)
PROC: 0BH17EZ Insertion of Endotracheal Airway into Trachea, Via Natural or Artificial Opening (ICD-10-PCS; principal; 2019-08-11)
PROC: 5A1955Z Respiratory Ventilation, Greater than 96 Consecutive Hours (ICD-10-PCS; 2019-08-11)
PROC: 5A12012 Performance of Cardiac Output, Single, Manual (ICD-10-PCS; 2019-08-30)
DX: U07.1 COVID-19 (principal); J12.89 Other viral pneumonia; J80 Acute respiratory distress syndrome; G93.41 Metabolic encephalopathy; R64 Cachexia; N17.9 Acute kidney failure, unspecified; Z66 Do not resuscitate; Z51.5 Encounter for palliative care; I10 Essential (primary) hypertension; E87.5 Hyperkalemia; G89.29 Other chronic pain; E11.65 Type 2 diabetes mellitus with hyperglycemia; Z91.19 Patient's noncompliance with other medical treatment and regimen; E11.649 Type 2 diabetes mellitus with hypoglycemia without coma; I46.9 Cardiac arrest, cause unspecified; Z68.23 Body mass index [BMI] 23.0-23.9, adult; Z23 Encounter for immunization
CPT/HCPCS: 36415; 36416; 36430; 71045; 80048; 80053; 80076; 82550; 82728; 82805; 83690; 83880; 84484; 85025; 85379; 86140; 86850; 86900; 86901; 87040; 87086; 87635; 92950; 93005; 94002; 94003; 94640; 94660; 96365; 96367; 96375; J0360; J0456; J0692; J0696; J0744; J1100; J1630; J1650; J1815; J1940; J2060; J2185; J2405; J2704; J2920; J2930; J3010; J3262; J3490; J7050; J7620; P9045; S0028; U0003